=== PATIENT | female | born 2000 | race Caucasian/White ===

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

== ENCOUNTER → 2021-05-03 13:16 | Outpatient (CLI) | payer OTHER, MEDICAID, SELFPAY | PROVIDERS: Visit Provider Nurse Practitioner | DX: Z20.822 Contact with and (suspected) exposure to COVID-19 (principal) | CPT/HCPCS: C9803; U0003; U0005 ==

== ENCOUNTER 2022-02-27 09:39 | Emergency (ER) | payer MEDICAID, SELFPAY ==
[2022-02-27 11:06] VITALS: BP 149/92; PULSE 81; RESP 16; TEMP 37.1; O2SAT 99; BMI 35.9
--- NOTE | 2022-02-27 11:07 | EXP.UTC ---
Discharge Plan Disposition Patient Disposition: Home, Self-Care Condition: Good Prescriptions Prescriptions: New azithromycin [Zithromax] 250 mg tablet 250 mg PO UD DOSE PK Qty: 6 0RF Rx Instructions: Take two (2) tablets today, then one (1) tablet days #2 thru #5 [id number]-frqwkibia-[id number] [Bromfed DM] 2-30-10 mg/5 mL Syrup 5 ml PO Q6H PRN (Reason: Cough) Qty: 240 0RF No Action omeprazole 20 MG capsule,delayed release(DR/EC) 20 mg PO DAILY sertraline 50 MG tablet 50 mg PO DAILY phenazopyridine 200 MG tablet 200 pow PO TID Qty: 6 0RF sulfamethoxazole-trimethoprim 1 EACH tablet 1 each PO BID 7 Days Qty: 14 0RF Referrals Follow up/Referrals: Provider,Referral, MD [Primary Care Provider] - See instructions Activity Restrictions/Add. Instructions Additional Instructions/Restrictions: Drink plenty of fluids. Take tylenol or ibuprofen for pain or fever. Take the medications as directed. Follow up with your regular doctor. GO TO THE ER FOR ANY WORSENING SYMPTOMS Clinical Impressions Clinical Impression: Pharyngitis, Viral syndrome Stand Alone Forms Stand Alone Forms: Work/School Release Instructions Patient Instructions: DI for Pharyngitis/Tonsillopharyngitis -- Adult, DI for Viral Syndrome Discharge ED Provider: Gilberto Spencer [facility] General Stated complaint: congestion, no taste, body aches, cough Time Seen by Provider: 02/27/22 11:07 History of Present Illness Provider Complaint: She states that since yesterday she has had congestion, no taste, body aches, cough Related Data Home Medications Medication Instructions Recorded Confirmed omeprazole 20 mg capsule,delayed 20 mg PO DAILY GERD 11/06/19 11/06/19 release sertraline 50 mg tablet 50 mg PO DAILY DEPRESSION/ANXIETY 11/06/19 11/06/19 Previous Rx's Medication Instructions Recorded phenazopyridine 200 mg tablet 200 pow PO TID #6 tabs 11/06/19 sulfamethoxazole 800 1 each PO BID 7 days #14 tabs 11/06/19 mg-trimethoprim 160 mg tablet azithromycin 250 mg tablet 250 mg PO UD DOSE PK #6 tabs 02/27/22 (Zithromax) ucoacomxuqycbty-mkehumxhrbmpfdr-HK 5 ml PO Q6H PRN Cough #240 mL 02/27/22 2 mg-30 mg-10 mg/5 mL oral syrup (Bromfed DM) Allergies Allergy/AdvReac Type Severity Reaction Status Date / Time No Known Allergies Allergy Verified 02/27/22 11:10 [facility] Social History Smoking Status: Never smoker alcohol intake: never current occupational status: other Travel in the last 8 weeks: None ROS Obtained: Yes All systems reviewed & no additional complaints except as documented Constitutional Constitutional: Reports chills and Reports fever(s) Eyes Eyes: Denies eye discharge ENT Ears, Nose, Mouth, and Throat: Reports as per HPI Cardiovascular Cardiovascular: Denies chest pain Respiratory Respiratory: Denies chest congestion and Reports cough Gastrointestinal Gastrointestingal: Reports nausea; Denies abdominal pain, constipation, cramping, diarrhea or vomiting Musculoskeletal Musculoskeletal: Denies arthralgias Integumentary/Breasts Skin/Breast: Denies rash Neurologic Neurologic: Denies paresthesias Physical Exam General General appearance: alert and in no apparent distress Head Head exam: atraumatic, normocephalic and normal inspection Eye Eye exam: Present normal appearance, PERRL and EOMI ENT ENT exam: Present normal exam, normal oropharynx, mucous membranes moist, TM's normal bilaterally and normal external ear exam Neck Neck exam: Present normal inspection, full ROM and trachea midline; Absent meningismus or lymphadenopathy Chest Chest inspection: Present normal inspection and symmetric chest wall rise; Absent tenderness Respiratory Respiratory exam: Present normal lung sounds bilaterally; Absent respiratory distress Cardiovascular Cardiovascular exam: Present regular rate and normal rhythm; Ab
[2022-02-27 11:53] VITALS: BP 149/92; PULSE 81; RESP 16; TEMP 37.1
== END 2022-02-27 11:53 | disposition home or self-care (01) ==
PROVIDERS: Emergency Provider Nurse Practitioner Family
DX: J02.9 Acute pharyngitis, unspecified (principal); B34.9 Viral infection, unspecified
CPT/HCPCS: 99212; C9803; G0463; U0003; U0005

== ENCOUNTER 2023-10-09 15:38 | Emergency (ER) | payer MEDICAID, SELFPAY ==
[2023-10-09 16:05] VITALS: BP 135/82; PULSE 105; RESP 21; TEMP 37.2; O2SAT 97; BMI 38.5
--- NOTE | 2023-10-09 16:06 | EXP.UTC ---
Discharge Plan Disposition Patient Disposition: Home, Self-Care Condition: Good Prescriptions Prescriptions: New phenazopyridine [Pyridium] 200 mg tablet 200 mg PO Q8H 2 Days Qty: 6 0RF cephalexin 500 mg capsule 500 mg PO QID Qty: 40 0RF ueecejsrelofnmj-uuzuvxoqe-QE [Bromfed DM] 2-30-10 mg/5 mL Syrup 5 ml PO Q6H PRN (Reason: Cough) Qty: 240 0RF No Action omeprazole 40 mg capsule,delayed release(DR/EC) 40 mg PO DAILY Patient Comments: TAKE 1 CAPSULE BY MOUTH DAILY FOR 180 DAYS. sertraline 50 mg tablet 50 mg PO DAILY Patient Comments: TAKE 1 TABLET BY MOUTH EVERY DAY medroxyprogesterone 150 mg/mL suspension 150 mg IM ONCE Patient Comments: PLEASE SEE ATTACHED FOR DETAILED DIRECTIONS topiramate 50 mg tablet 50 mg PO BID Patient Comments: TAKE 1 TABLET BY MOUTH 2 TIMES DAILY FOR 180 DAYS. Referrals Follow up/Referrals: Provider,Referral, MD [Primary Care Provider] - See instructions Activity Restrictions/Add. Instructions Additional Instructions/Restrictions: Drink plenty of fluids. Take tylenol or ibuprofen for pain or fever. Take the medications as directed. Follow up with your regular doctor. GO TO THE ER FOR ANY WORSENING SYMPTOMS The pyridium will make your urine turn orange, this is an expected side effect. It will stain your clothes if it comes into contact with them. We will culture the urine. That will tell what bacteria is causing your infection and which antibiotics will treat it best. Sometimes the first antibiotic we prescribe turns out to not work against different bacteria. So, make sure you follow up within 3 days if you are not getting better. Clinical Impressions Clinical Impression: Strep throat UTI (urinary tract infection) Qualifiers: Urinary tract infection type: site unspecified Hematuria presence: with hematuria Qualified Code(s): N39.0 - Urinary tract infection, site not specified Stand Alone Forms Stand Alone Forms: Work/School Release Instructions Patient Instructions: Urine Culture, DI for Strep Throat, DI for Urinary Tract Infection (UTI), Phenazopyridine Discharge ED Provider: Gilberto Spencer [facility] [place] H[place] General Stated complaint: fever Time Seen by Provider: 10/09/23 16:06 History of Present Illness Provider Complaint: She states that she has had low back pain, dysuria, and urinary frequency for the past 1 week. She gets uti's occasionally and that is what she states her symptoms feel like. She has had sore throat, ear pain and sinus congestion for the past 3 days. She has been exposed to both strep throat and covid-19. Related Data Home Medications Medication Instructions Recorded Confirmed medroxyprogesterone 150 mg/mL 150 mg IM ONCE 10/09/23 10/09/23 intramuscular suspension omeprazole 40 mg capsule,delayed 40 mg PO DAILY 10/09/23 10/09/23 release sertraline 50 mg tablet 50 mg PO DAILY 10/09/23 10/09/23 topiramate 50 mg tablet 50 mg PO BID 10/09/23 10/09/23 Previous Rx's Medication Instructions Recorded xcklnhlxwxtzjye-phboevsyacxwlpt-CJ 5 ml PO Q6H PRN Cough #240 mL 10/09/23 2 mg-30 mg-10 mg/5 mL oral syrup (Bromfed DM) cephalexin 500 mg capsule 500 mg PO QID #40 caps 10/09/23 phenazopyridine 200 mg tablet 200 mg PO Q8H 2 days #6 tabs 10/09/23 (Pyridium) Allergies Allergy/AdvReac Type Severity Reaction Status Date / Time No Known Allergies Allergy Verified 02/27/22 11:10 [facility] Disclaimer: The information contained in this section may have been updated after the patient was seen, as this information can be updated by other users. Medical History (Updated 10/09/23 @ 16:19 by Gilberto Spencer APRN) Anemia UTI (urinary tract infection) GERD (gastroesophageal reflux disease) Depression Anxiety Migraine Asthma Hypertension Social History (Updated 02/27/22 @ 22:20 by Gilberto Spencer APRN) Smoking Status: Never smoker alcohol intake: never current occupational status: other Travel in the last 8 weeks: None ROS Obtained: Yes All systems reviewed & no additional complaints except as documented Constitutional Constitutional: Reports chills and Reports fever(s) Eyes Eyes: Denies eye discharge ENT Ears, Nose, Mouth, and Throat: Reports as per HPI Cardiovascular Cardiovascular: Denies chest pain Respiratory Respiratory: Denies chest congestion and Reports cough Gastrointestinal Gastrointestingal: Reports nausea; Denies abdominal pain, constipation, cramping, diarrhea or vomiting Genitourinary Female Genitourinary: Reports as per HPI, Reports dysuria, Reports urinary frequency, Reports urinary incontinence, Reports urinary hesitancy and Reports urinary urgency Musculoskeletal Musculoskeletal: Denies arthralgias Integumentary/Breasts Skin/Breast: Denies rash Neurologic Neurologic: Denies paresthesias Physical Exam General General appearance: alert and in no apparent distress Head Head exam: atraumatic, normocephalic and normal inspection Eye Eye exam: Present normal appearance, PERRL and EOMI ENT ENT exam: Present mucous membranes moist and normal external ear exam Expanded ENT Exam TM/Canal exam: Bilateral TM: erythema and bulging Nose exam: Absent sinus tenderness Mouth exam: Present normal external inspection; Absent drooling Teeth exam: Present normal inspection Throat exam: Present tonsillar erythema, tonsillomegaly and tonsillar exudate Neck Neck exam: Present normal inspection, full ROM and trachea midline; Absent tenderness, meningismus or lymphadenopathy Chest Chest inspection: Present normal inspection and symmetric chest wall rise; Absent tenderness Respiratory Respiratory exam: Present normal lung sounds bilaterally; Absent respiratory distress, wheezes, stridor or accessory muscle use Cardiovascular Cardiovascular exam: Present regular rate and normal rhythm; Absent systolic murmur or diastolic murmur Abdominal Exam Abdominal exam: Present soft and normal bowel sounds; Absent distention, tenderness, guarding, rebound or rigidity Extremities Exam Extremities exam: Present normal inspection and normal capillary refill; Absent calf tenderness Back Exam Back exam: Present normal inspection and full ROM; Absent tenderness, CVA tenderness (R) or CVA tenderness (L) Neurological Exam Neurological exam: Present alert, oriented X3 and CN II-XII intact Psychiatric Psychiatric exam: Present normal affect and normal mood Skin Skin exam: Present warm, dry, intact and normal color Medical Decision Making Medical Records Medical records reviewed: No I reviewed the patient's medical records. Johann Inquiry Pt receiving controlled substance: No Lab Data Lab results reviewed: Yes I reviewed the patient's lab results. Orders (Tests/Meds): ORDERS Category Date Time Status Urine Culture Stat Micro 10/09/23 16:06 Ordered
[2023-10-09 16:07] LABS: Apearance,Urine Cloudy (Clear); Bilirubin,Urine 1+ (Negative); Blood, Urine 3+ (Negative); Color,Urine Dark Yellow (Yellow); Glucose,Urine (UA) Negative (Negative); Ketones,Urine TRACE (Negative); PH,Urine 6.5 (5.0-8.5); Protein,Urine 3+ (Negative); UTC Leukocyte Esterase,Urine 1+ (Negative); Urobilinogen,Urine 2 EU/dl (0.2)
[2023-10-09 16:08] LABS: UTC Nitrate,Urine Negative (Negative); UTC Strep Screen (Rapid) Positive (Negative)
[2023-10-09 16:25] VITALS: BP 135/82; PULSE 105; RESP 21; TEMP 37.2; O2SAT 97
[2023-10-09 18:13] LABS: Coronavirus 19, PCR Not Detected (NotDetected); Influenza A, PCR Not Detected (NotDetected); Influenza B, PCR Not Detected (NotDetected)
== END 2023-10-09 16:27 | disposition home or self-care (01) ==
PROVIDERS: Emergency Provider Nurse Practitioner Family
DX: J02.0 Streptococcal pharyngitis (principal); R07.0 Pain in throat; H92.03 Otalgia, bilateral; R09.81 Nasal congestion; N39.0 Urinary tract infection, site not specified; R30.0 Dysuria; R35.0 Frequency of micturition; M54.59 Other low back pain
CPT/HCPCS: 81003; 87086; 87088; 87636; 87880; 99212; 99214; G0463

== ENCOUNTER 2023-12-08 14:34 | Outpatient (CLI) | payer MEDICAID, SELFPAY ==
--- NOTE | 2023-12-08 14:37 | XR_ITS ---
FINAL REPORT CLINICAL HISTORY: chest pain, SOBOE FINDINGS: 2 views of the chest were obtained . The heart is normal in size. The mediastinum is within normal limits. There are calcified granulomas in the right midlung. The lungs are otherwise clear. There is no pneumothorax. Osseous structures are unremarkable. IMPRESSION: No acute cardiopulmonary process. Reviewed, Interpreted and Dictated by David Carpenter MD Transcribed by Tasha Hernández Authenticated and [facility]
--- NOTE | 2023-12-08 15:06 | ECG_ITS ---
APPROVED REPORT Exam: Resting ECG HR:88 bpm ECG Measurements Heart Rate 88 AXES DE 145 P 47 QRSd 69 QRS 38 QT 318 T 30 QTc 363 Conclusion SINUS RHYTHM NORMAL ECG UNCONFIRMED REPORT Electronically signed by : Jerome Meraz MD 12/09/2023 08:44:11
[2023-12-08 15:22] LABS: Basophils % 0.5 % (0.1-2.0); Eosinophils # 0.1 K/mm3 (0.0-0.4); Hematocrit 41.6 % (37.0-47.0); Hemoglobin 13.5 g/dL (12.2-16.2); Lymphocytes # 2.1 K/mm3 (0.7-4.5); Lymphocytes % 28.3 % (10-50); Mean Corpuscular HGB Conc 32.4 g/dL (31.8-35.4); Mean Corpuscular Hemoglobin 28.2 pg (27.0-31.2); Mean Corpuscular Volume 86.9 fl (81-99); Mean Platelet Volume 8.1 fl (7.4-10.4); Monocytes # 0.6 K/mm3 (0.1-1.0); Monocytes % 7.8 % (1.7-9.3); Neutrophils # 4.7 K/mm3 (1.8-7.8); Neutrophils % 62.4 % (37.0-80.0); Platelet Count 344 K/mm3 (142-424); Red Blood Count 4.78 M/mm3 (4.20-5.40); Red Cell Distribution Width 14.1 % (11.5-17.5); White Blood Count 7.5 K/mm3 (4.8-10.8)
[2023-12-08 15:55] LABS: Alanine Aminotransferase 21 U/L (12-78); Albumin Level 4.2 g/dl (3.5-5.0); Albumin/Globulin Ratio 1.2 (1.1-1.8); Alkaline Phosphatase 69 U/L (38-126); Anion Gap 13.2 mEq/L (5-15); Aspartate Amino Transferase 26 U/L (14-36); Bilirubin,Total 0.4 mg/dl (0.2-1.3); Blood Urea Nitrogen 11 mg/dl (7-17); Calcium 9.9 mg/dl (8.4-10.2); Carbon Dioxide 20 mmol/L (22.0-30.0); Chloride 111 mmol/L (98-107); Estimated Glomerular Filt Rate 89 ml/min (>60); GFR (African American) 108 ML/MIN (>60); Globulin 3.5 g/dL (1.3-3.2); Glucose 102 mg/dl (74-100); Potassium 4.2 mmoL/L (3.5-5.1); Sodium 140 mmol/L (136-145); Total Protein,Serum 7.7 g/dl (6.3-8.2)
[2023-12-08 16:03] LABS: Erythrocyte Sedimentation Rate 21 mm/hr (0-20)
[2023-12-08 16:26] LABS: Thyroid Stimulating Hormone 0.67 uIU/mL (0.465-4.68)
[2023-12-08 16:45] LABS: Vitamin B12 495 pg/mL (239-931)
[2023-12-08 18:05] LABS: Hemoglobin A1C 5.5 % (4.0-6.0)
[2023-12-11 15:14] LABS: Anti-Centromere B Antibodies <0.2 AI (0.0-0.9); Anti-DNA (DS) Ab Qn 1 IU/mL (0-9); Anti-Jo-1 <0.2 AI (0.0-0.9); Anti-Smith Antibody <0.2 AI (0.0-0.9); Antichromatin Antibodies 0.2 AI (0.0-0.9); Antiscleroderma-70 Antibodies <0.2 AI (0.0-0.9); RNP Antibodies 0.2 AI (0.0-0.9); Sjogren's Anti-SS-A <0.2 AI (0.0-0.9); Sjogren's Anti-SS-B <0.2 AI (0.0-0.9)
== END 2023-12-08 23:59 | disposition home or self-care (01) ==
LOC: RAD 14:34
PROVIDERS: PCP Pediatrics; Visit Provider Nurse Practitioner
DX: R06.02 Shortness of breath (principal); R07.9 Chest pain, unspecified; G44.52 New daily persistent headache (NDPH); D64.9 Anemia, unspecified; I10 Essential (primary) hypertension; K21.9 Gastro-esophageal reflux disease without esophagitis
CPT/HCPCS: 36415; 71046; 80050; 80053; 82607; 83036; 84443; 85025; 85651; 86140; 86225; 86235; 93005

== ENCOUNTER 2023-12-23 14:39 | Outpatient (CLI) | payer MEDICAID, SELFPAY ==
[2023-12-23 19:26] LABS: Uric Acid 5.4 mg/dl (2.5-6.2)
[2023-12-23 19:31] LABS: C-Reactive Protein 6.6 mg/L (0-4)
[2023-12-23 19:42] LABS: Erythrocyte Sedimentation Rate 21 mm/hr (0-20)
[2023-12-25 13:11] LABS: RA Latex Turbid. <10.0 IU/mL (<14.0)
[2023-12-28 06:59] LABS: Antinuclear Antibodies, IFA POSITIVE
== END 2023-12-23 23:59 | disposition home or self-care (01) ==
LOC: LAB.DROPOF 12-24 14:39
PROVIDERS: PCP Nurse Practitioner; Visit Provider Nurse Practitioner
DX: R70.0 Elevated erythrocyte sedimentation rate (principal); R79.82 Elevated C-reactive protein (CRP)
CPT/HCPCS: 84550; 85651; 86038; 86140; 86431

== ENCOUNTER 2023-12-24 08:21 | Outpatient (CLI) | payer MEDICAID, SELFPAY ==
--- NOTE | 2023-12-24 | CA_ITS ---
APPROVED REPORT Exam: Exercise Treadmill Technologist: Shannan Dyer, Ht: 5 ft 1 in Wt: 196 lbs BSA: 1.87 m2 HR: 74 bpm BP: 135/90 mmHg Rhythm: Nsr, rightward axis Medical History Medical History: HTN Medications: Omeprazole,,,,, Sertraline,,,,, ValACYCLOVIR,,,,, MeDroxyprogesterone,,,,, TopIRAMTE,,,,, Allergies: No known drug allergies Cardiac Risk Factors: HTN Stress Test Details Test: Curry HR Resting HR: 80 bpm Max Heart Rate (APMHR): 197 bpm Max HR Achieved: 179 bpm Target HR (85% APMHR): 167 bpm % of APMHR: 91 Recovery HR: 99 bpm HR response to stress: Normal HR response to stress BP Resting BP: 135.0/90 mmHg Max BP: 188/78 mmHg Recovery BP: 139.0/78.0 mmHg BP response to stress: Normal blood pressure response to stress. ECG Resting ECG: Normal sinus rhythm, right axis deviation Stress EC.[address] depression Arrhythmia: None Recovery ECG: Return to baseline within 3 minutes of recovery Recovery Arrhythmia: None Clinical Exercise duration: 06:18 min Highest Stage Achieved: Exercise capacity: 7.0 METs Overall Exercise Capacity for Age: Fair Stress ECG Conclusion Max HR: 179 % of PM: 91% Max BP: 188/78 Mets: 7.0 Test stopped due to: Dyspnea, fatigue Pt exercised 6:18 on Curry protocol. No chest pain. Normal ST response to exercise Normal GXT Conclusion: Fair exercise tolerance compared to age and sex matched peers. No evidence of ischemic ECG changes at peak stress. GXT only (no imaging) Test Summary REST . . . . . . . Standing REST . . . . . . . Sitting REST 03:02 0.0 0.0 80 . 135/ 90 . . Stage 1 01:00 10.0 1.7 122 . . . . Stage 1 02:00 10.0 1.7 140 . . . . Stage 1 03:00 10.0 1.7 136 . 162/ 80 . . Stage 2 01:00 12.0 2.5 162 . . . . Stage 2 02:00 12.0 2.5 171 . . . . Stage 2 03:00 12.0 2.5 169 . 188/ 78 . . Stage 3 00:18 14.0 3.4 176 . . . Stop exercise at 06:18 RECOVERY 01:00 0.0 0.0 147 . . . . RECOVERY 02:00 0.0 0.0 118 . 175/ 90 . . RECOVERY 03:00 0.0 0.0 111 . 166/ 85 . . RECOVERY 04:00 0.0 0.0 103 . 166/ 85 . . RECOVERY 05:00 0.0 0.0 102 . 139/ 78 . . RECOVERY 05:18 0.0 0.0 97 . 139/ 78 . . Electronically signed by : Monique Spear MD 01/06/2024 14:03:10
--- NOTE | 2023-12-24 08:25 | CA_ITS ---
APPROVED REPORT EXAM: Comprehensive 2D, Doppler, and color-flow Echocardiogram Shoe Reconditioner: NOE Mcknight, RVS Ht: 5 ft 1 in Wt: 198lbs BSA: 1.88 BP: 128/82 mmHg Indications: CP, Dyspnea, Palpitations 2D Dimensions Left Atrium 3.11 cm LA Volume 45.30 mL LA Volume Index 23.50 mL/m2 (M/F) 16-34 M-Mode Dimensions RVDd 2.72 cm (0.9-2.6) LA Diam 3.63 cm (1.9-4.0) LVDd 4.14 cm (3.5-5.7) LVDs 2.83 cm (3.5-5.7) IVSd 0.77 cm (0.6-1.1) PWd 0.74 cm (0.6-1.1) EF (Teich) 60.10% EPSs 0.30 cm FS 31.60% EDV (Teich) 75.90 mL TAPSE 2.17 (<1.7) ESV (Teich) 30.30 mL LV Diastology E Decel Time 200 (160-240 msec) E/A Ratio 1.83 MED A' 10.90 cm/s LAT A' 9.40 cm/s Aortic Valve MAX Index 1.16 cm2/m2 AoV Peak Alf. 146.0 (50-130 cm/s) AO Peak GR. 8.50 mmHg AO Mean GR. 4.30 (<5 mmHg) AO VTI 28.5 (18-25 cm) MAX (VTI) 2.23 (2.5-4.5 cm2) Mitral Valve MV A Velocity 46.0 (40-130 cm/s) E/A Ratio 1.83 Pulmonary Valve PV Peak Velocity 113.0 (50-150 cm/s) Left Ventricle The left ventricle is normal size. The left ventricular systolic function is normal. The left ventricular ejection fraction is within the normal range. There is normal left ventricular wall thickness. There is normal LV segmental wall motion. The left ventricular diastolic function is normal. LVEF is 60%. Right Ventricle The right ventricle is normal size. The right ventricular systolic function is normal. Atria The left atrium size is normal. The right atrium size is normal. There is no Doppler evidence of interatrial shunt. Aortic Valve The aortic valve opens well. There is no aortic valvular stenosis. No aortic regurgitation is present. Mitral Valve The mitral valve is normal in structure. No evidence of mitral valve stenosis. There is no mitral valve regurgitation noted. Tricuspid Valve The tricuspid valve leaflets are thin and pliable. Trace tricuspid regurgitation. There is insufficient TR jet to estimate RVSP. Pulmonic Valve The pulmonary valve is normal in structure. Trace pulmonic regurgitation. Great Vessels The aortic root is normal in size. The ascending aorta is normal in size. IVC is normal in size and collapses >50% with inspiration. Pericardium There is no pericardial effusion. Other Information Study Quality: Adequate Conclusion Normal biventricular systolic function. No significant valvular stenosis or regurgitation. Electronically signed by : Monique Spear MD 12/29/2023 11:44:46
== END 2023-12-24 23:59 | disposition home or self-care (01) ==
LOC: RT 08:22
PROVIDERS: PCP Pediatrics; Visit Provider Nurse Practitioner
DX: R00.2 Palpitations (principal); R07.9 Chest pain, unspecified; R06.02 Shortness of breath
CPT/HCPCS: 93017; 93018; 93225; 93227; 93306

== ENCOUNTER 2023-12-30 14:26 | Emergency (ER) | payer MEDICAID, SELFPAY ==
[2023-12-30 14:47] VITALS: BP 127/79; PULSE 80; RESP 20; TEMP 36.8; O2SAT 100; BMI 36.2
--- NOTE | 2023-12-30 15:01 | EXP.UTC ---
Discharge Plan Disposition Patient Disposition: Home, Self-Care Condition: Good Prescriptions Prescriptions: New benzonatate 100 mg capsule 100 mg PO TID PRN (Reason: cough) Qty: 30 0RF fluticasone propionate [Flonase Allergy Relief] 50 mcg/actuation spray,suspension 1 - 2 spray intranasal DAILY Qty: 16 0RF Rx Instructions: administer into each nostril daily No Action valacyclovir 500 mg tablet 1,000 mg PO ONCE PRN (Reason: herpes) Patient Comments: TAKE 2 TABLETS BY MOUTH EVERY 24 HOURS FOR 5 DAYS. omeprazole 40 mg capsule,delayed release(DR/EC) 40 mg PO DAILY Patient Comments: TAKE 1 CAPSULE BY MOUTH DAILY FOR 180 DAYS. sertraline 50 mg tablet 50 mg PO DAILY Patient Comments: TAKE 1 TABLET BY MOUTH EVERY DAY medroxyprogesterone 150 mg/mL suspension 150 mg IM ONCE Patient Comments: PLEASE SEE ATTACHED FOR DETAILED DIRECTIONS topiramate 50 mg tablet 50 mg PO BID Patient Comments: TAKE 1 TABLET BY MOUTH 2 TIMES DAILY FOR 180 DAYS. Referrals Follow up/Referrals: Sukumar Garcia [Primary Care Provider] - See instructions Activity Restrictions/Add. Instructions Additional Instructions/Restrictions: *Monitor Temp, Over the counter Motrin or Tylenol as directed/as needed Tylenol every 4 hours and Motrin every 6 hours (as long as your family doctor has told you that you can take it) for fever or pain. and straight to ER if unable to lower temp less than 101.0 after medication given *Warm salt water gargles may help to soothe the throat *Throat Lozenges? *Warm fluids like tea with honey may help to soothe the throat? *Sleep elevated *Humidifier/Vaporizer *Tessalon Perles will not cause drowsiness but use at bedtime to help stop cough so that you may get some rest. Your throat swab was sent for culture. Those results are typically sent to your primary care. Be sure to follow up in 2-3 days with your family doctor/primary care physician if no improvement so they can review those result and treat if necessary. If you don?t have a primary care doctor, I recommend you get one but in the mean time, you will have to return to a walk in clinic Follow up IMMEDIATELY for new or worsening symptoms or no Noticeable improvement over the next 48-72 hours. 911 for difficulty breathing or swallowing Clinical Impressions Clinical Impression: Cough Instructions Patient Instructions: Cough Print Language Print Language: Haitian Discharge ED Provider: Cecy Ramirez [facility] [place] HPI General Stated complaint: cough Mode of Arrival: Ambulatory Source of Information: Patient Time Seen by Provider: 12/30/23 15:01 Description of Symptoms (Recalled from Triage Doc. by RN): excessive dry cough, itchy throat at home covid test + a few weeks ago HEENT Symptoms (Recalled from RN notes): No Resp Symptoms (Recalled from RN notes): Yes Skin Symptoms (Recalled from RN notes): No MS Symptoms (Recalled from RN notes): No Functional Status (Recalled from RN notes): wdl History of Present Illness Provider Complaint: Patient states that she had COVID a few weeks ago per home test and she has had a dry cough ever since States today she has been having itchy scratchy throat and worried she may have strep or something Related Data Home Medications ?Medication ?Instructions ?Recorded ?Confirmed medroxyprogesterone 150 mg/mL 150 mg IM ONCE 10/09/23 12/30/23 intramuscular suspension omeprazole 40 mg capsule,delayed 40 mg PO DAILY 10/09/23 12/30/23 release sertraline 50 mg tablet 50 mg PO DAILY 10/09/23 12/30/23 topiramate 50 mg tablet 50 mg PO BID 10/09/23 12/30/23 valacyclovir 500 mg tablet 1,000 mg PO ONCE PRN herpes 12/11/23 12/30/23 Previous Rx's ?Medication ?Instructions ?Recorded benzonatate 100 mg capsule 100 mg PO TID PRN cough #30 caps 12/30/23 fluticasone propionate 50 1 - 2 spray intranasal DAILY #16 12/30/23 mcg/actuation nasal grams spray,suspension (Flonase Allergy Relief) Allergies Allergy/AdvReac Type Severity Reaction Status Date / Time No Known Allergies Allergy Verified 12/23/23 09:33 Worker's Comp Is this a Worker's Comp case?: No [facility] Disclaimer: The information contained in this section may have been updated after the patient was seen, as this information can be updated by other users. Medical History (Updated 12/30/23 @ 15:22 by Cecy Ramirez APRN) Elevated C-reactive protein (CRP) Elevated sed rate Palpitations SOBOE (shortness of breath on exertion) Chest pain New daily persistent headache Anemia UTI (urinary tract infection) GERD (gastroesophageal reflux disease) Depression Anxiety Migraine Asthma Hypertension Social History Smoking Status: Never smoker alcohol intake: never current occupational status: other Travel in the last 8 weeks: None ROS Obtained: Yes All systems reviewed & no additional complaints except as documented and Yes Systems reviewed as appropriate & no additional complaints except as documented Constitutional Constitutional: Reports system reviewed and no additional complaints, except as documented, Reports as per HPI, Denies body ache, Denies chills, Denies fever(s) and Denies headache(s) ENT Ears, Nose, Mouth, and Throat: Reports system reviewed and no additional complaints, except as documented, Reports as per HPI, Denies headache(s) and Reports sore throat Cardiovascular Cardiovascular: Reports system reviewed and no additional complaints, except as documented and Reports as per HPI Respiratory Respiratory: Reports system reviewed and no additional complaints, except as documented, Reports as per HPI and Reports cough Gastrointestinal Gastrointestingal: Reports system reviewed and no additional complaints, except as documented and as per HPI Neurologic Neurologic: Denies headache(s) Physical Exam General General appearance: alert and in no apparent distress ENT ENT exam: Present mucous membranes moist Expanded ENT Exam Throat exam: Present tonsillar erythema; Absent tonsillomegaly or tonsillar exudate Chest Chest inspection: Present normal inspection; Absent symmetric chest wall rise or tenderness Respiratory Respiratory exam: Present normal lung sounds bilaterally; Absent respiratory distress or wheezes Cardiovascular Cardiovascular exam: Present regular rate, normal rhythm and normal heart sounds Abdominal Exam Abdominal exam: Present soft and normal bowel sounds; Absent distention or tenderness Neurological Exam Neurological exam: Present alert, oriented X3 and normal gait Medical Decision Making Johann Inquiry Pt receiving controlled substance: No Johann was queried for this patient: No Vital Signs: 12/30/23 14:47 Temperature 98.2 F Temperature Source Oral Pulse Rate [Left Brachial] 80 Respiratory Rate 20 Blood Pressure [Left Arm] 127/79 Blood Pressure Mean [Left Arm] 95 02 Sat by Pulse Oximetry 100
[2023-12-30 15:35] VITALS: BP 127/79; PULSE 80; RESP 20; TEMP 36.8; O2SAT 100
[2023-12-31 09:13] LABS: UTC Strep Screen (Rapid) Negative (Negative)
== END 2023-12-30 15:38 | disposition home or self-care (01) ==
PROVIDERS: Emergency Provider Nurse Practitioner; PCP Pediatrics
DX: R05.9 Cough, unspecified (principal); R07.0 Pain in throat; Z86.16 Personal history of COVID-19
CPT/HCPCS: 87880; 99212; 99214; G0463

== ENCOUNTER 2024-01-28 18:00 | Emergency (ER) | payer MEDICAID, SELFPAY ==
--- NOTE | 2024-01-28 18:03 | EXP.UTC ---
Discharge Plan Disposition Patient Disposition: Home, Self-Care Condition: Good Prescriptions Prescriptions: New phenazopyridine [Pyridium] 200 mg tablet 200 mg PO Q8H 2 Days Qty: 6 0RF ondansetron 4 mg Tablet,Disintegrating 4 mg PO Q8H PRN (Reason: Nausea) Qty: 12 0RF nitrofurantoin monohyd/m-cryst [Macrobid] 100 mg Capsule 100 mg PO BID Qty: 10 0RF Rx Instructions: must administer with a meal/food No Action valacyclovir 500 mg tablet 1,000 mg PO ONCE PRN (Reason: herpes) Patient Comments: TAKE 2 TABLETS BY MOUTH EVERY 24 HOURS FOR 5 DAYS. omeprazole 40 mg capsule,delayed release(DR/EC) 40 mg PO DAILY Patient Comments: TAKE 1 CAPSULE BY MOUTH DAILY FOR 180 DAYS. sertraline 50 mg tablet 50 mg PO DAILY Patient Comments: TAKE 1 TABLET BY MOUTH EVERY DAY medroxyprogesterone 150 mg/mL suspension 150 mg IM ONCE Patient Comments: PLEASE SEE ATTACHED FOR DETAILED DIRECTIONS topiramate 50 mg tablet 50 mg PO BID Patient Comments: TAKE 1 TABLET BY MOUTH 2 TIMES DAILY FOR 180 DAYS. Referrals Follow up/Referrals: Provider,Referral, MD [Primary Care Provider] - See instructions Activity Restrictions/Add. Instructions Additional Instructions/Restrictions: Drink plenty of fluids. Take tylenol or ibuprofen for pain or fever. Take the medications as directed. Follow up with your regular doctor. GO TO THE ER FOR ANY WORSENING SYMPTOMS The pyridium will make your urine turn orange, this is an expected side effect. It will stain your clothes if it comes into contact with them. We will culture the urine. That will tell what bacteria is causing your infection and which antibiotics will treat it best.This test takes 3 days to complete. Clinical Impressions Clinical Impression: UTI (urinary tract infection) Qualifiers: Urinary tract infection type: site unspecified Hematuria presence: with hematuria Qualified Code(s): N39.0 - Urinary tract infection, site not specified Stand Alone Forms Stand Alone Forms: Work/School Release Instructions Patient Instructions: Urinary Tract Infection, Urine Culture, DI for Urinary Tract Infection (UTI), Phenazopyridine Print Language Print Language: Telugu Discharge ED Provider: Gilberto Spencer [facility] [place] General Stated complaint: poss UtI discomfort , pain Time Seen by Provider: 01/28/24 18:02 Related Data Home Medications ?Medication ?Instructions ?Recorded ?Confirmed medroxyprogesterone 150 mg/mL 150 mg IM ONCE 10/09/23 01/28/24 intramuscular suspension omeprazole 40 mg capsule,delayed 40 mg PO DAILY 10/09/23 01/28/24 release sertraline 50 mg tablet 50 mg PO DAILY 10/09/23 01/28/24 topiramate 50 mg tablet 50 mg PO BID 10/09/23 01/28/24 valacyclovir 500 mg tablet 1,000 mg PO ONCE PRN herpes 12/11/23 01/06/24 Previous Rx's ?Medication ?Instructions ?Recorded nitrofurantoin 100 mg PO BID #10 caps 01/28/24 monohydrate/macrocrystals 100 mg capsule (Macrobid) ondansetron 4 mg disintegrating 4 mg PO Q8H PRN Nausea #12 tabs 01/28/24 tablet phenazopyridine 200 mg tablet 200 mg PO Q8H 2 days #6 tabs 01/28/24 (Pyridium) Allergies Allergy/AdvReac Type Severity Reaction Status Date / Time No Known Allergies Allergy Verified 01/06/24 14:08 [facility] Disclaimer: The information contained in this section may have been updated after the patient was seen, as this information can be updated by other users. Medical History Elevated C-reactive protein (CRP) Elevated sed rate Palpitations SOBOE (shortness of breath on exertion) Chest pain New daily persistent headache Anemia UTI (urinary tract infection) GERD (gastroesophageal reflux disease) Depression Anxiety Migraine Asthma Hypertension Social History Smoking Status: Never smoker alcohol intake: never current occupational status: other Travel in the last 8 weeks: None ROS Obtained: Yes All systems reviewed & no additional complaints except as documented Constitutional Constitutional: Reports system reviewed and no additional complaints, except as documented, Denies chills and Denies fever(s) Eyes Eyes: Denies eye discharge ENT Ears, Nose, Mouth, and Throat: Denies dysphagia, Denies sore throat and Denies throat swelling Cardiovascular Cardiovascular: Denies chest pain and Denies dyspnea Respiratory Respiratory: Denies chest congestion, Denies cough and Denies dyspnea Gastrointestinal Gastrointestingal: Denies abdominal pain, constipation, diarrhea, dysphagia, nausea or vomiting Genitourinary Female Genitourinary: Reports as per HPI, Reports dysuria, Reports urinary frequency, Denies urinary incontinence, Reports urinary hesitancy and Reports urinary urgency Musculoskeletal Musculoskeletal: Denies arthralgias and Reports back pain Integumentary/Breasts Skin/Breast: Denies rash Neurologic Neurologic: Denies paresthesias Allergic/Immunologic Allergic/Immunologic: Denies throat swelling Physical Exam General General appearance: alert and in no apparent distress Head Head exam: atraumatic and normocephalic Eye Eye exam: Present normal appearance, PERRL and EOMI ENT ENT exam: Present normal exam, mucous membranes moist, TM's normal bilaterally and normal external ear exam Neck Neck exam: Present normal inspection, full ROM and trachea midline; Absent tenderness, meningismus or lymphadenopathy Chest Chest inspection: Present normal inspection and symmetric chest wall rise; Absent tenderness Respiratory Respiratory exam: Present normal lung sounds bilaterally; Absent respiratory distress, wheezes or stridor Cardiovascular Cardiovascular exam: Present regular rate, normal rhythm and normal heart sounds Abdominal Exam Abdominal exam: Present soft and normal bowel sounds; Absent distention, tenderness, guarding, rebound, rigidity, incision, psoas sign, obturator sign, heel tap sign, Escobedo's sign, Rovsing's sign or tenderness at McBurney's Point Extremities Exam Extremities exam: Present normal inspection, full ROM and normal capillary refill; Absent tenderness, edema, joint swelling, calf tenderness or cyanosis Back Exam Back exam: Present normal inspection and full ROM; Absent tenderness, CVA tenderness (R) or CVA tenderness (L) Neurological Exam Neurological exam: Present alert, oriented X3 and normal gait Psychiatric Psychiatric exam: Present normal affect and normal mood Skin Skin exam: Present warm, dry, intact and normal color Lymphatic Lymphatic Findings: no adenopathy Medical Decision Making Medical Records Medical records reviewed: No I reviewed the patient's medical records. Screening: Per USPSTF and CDC recommendations, given the prevalence of disease in our region, it is our hospital?s policy to screen for HIV and viral Hepatitis for all patients aged 18 and over and those with ongoing risk factors. Johann Inquiry Pt receiving controlled substance: No Lab Data Lab results reviewed: Yes I reviewed the patient's lab results.
[2024-01-28 18:19] VITALS: BP 133/83; PULSE 67; RESP 18; TEMP 36.8; O2SAT 100; BMI 36.8
[2024-01-28 18:28] LABS: Microscopic, Urine URINE MICROSCOPIC (MICROSCOPIC)
[2024-01-28 18:33] LABS: Appearance,Urine CLEAR (Clear); Bilirubin,Urine Negative (Negative); Blood, Urine 3+ (Negative); Color,Urine YELLOW (Yellow); Glucose,Urine (UA) Negative (Negative); Ketones,Urine Negative (Negative); Leukocyte Esterase,Urine 1+ (Negative); Nitrate,Urine Negative (Negative); Protein,Urine Negative (Negative); Urobilinogen,Urine 0.2 EU/dl (0.2)
[2024-01-28 18:39] VITALS: BP 133/83; PULSE 67; RESP 18; TEMP 36.8
[2024-01-28 18:47] LABS: RBC,Urine 50-100 #/hpf (0-3); Squamous Epithelial Cell,Urine 20-50 #/hpf (0-5); WBC,Urine TNTC #/hpf (0-3)
[2024-01-28 18:48] LABS: Bacteria,Urine 4+ /lpf
--- NOTE | 2024-01-30 17:54 | PC.NURSE ---
URINE CULTURE RESULTS REVIEWED BY Pavan PACHECO APRN. NO CHANGES NEEDED AT THIS TIME
== END 2024-01-28 18:41 | disposition home or self-care (01) ==
PROVIDERS: Emergency Provider Nurse Practitioner Family
DX: N39.0 Urinary tract infection, site not specified (principal)
CPT/HCPCS: 81001; 87086; 87088; 87186; 99213; G0381

== ENCOUNTER 2024-04-06 10:27 | Outpatient (CLI) | payer MEDICAID, SELFPAY | END 2024-04-06 23:59 | disposition home or self-care (01) | LOC: RT 10:28 | PROVIDERS: PCP Pediatrics; Visit Provider Specialist | DX: R00.0 Tachycardia, unspecified (principal); I49.9 Cardiac arrhythmia, unspecified; R07.89 Other chest pain | CPT/HCPCS: 93270; 93272 ==

== ENCOUNTER 2024-04-15 17:13 | Outpatient (CLI) | payer MEDICAID, SELFPAY ==
--- NOTE | 2024-04-15 17:14 | MR_ITS ---
PROCEDURE INFORMATION: Exam: MR Head Without Contrast Exam date and time: 04/15/2024 5:14 PM Age: 23 years old Clinical indication: Pain; Headache; Additional info: Changing pattern of daily headaches TECHNIQUE: Imaging protocol: Magnetic resonance imaging of the head without contrast. COMPARISON: No relevant prior studies available. FINDINGS: Brain: Multiple bilateral periventricular nonspecific white matter foci ranging in size from 1 mm up to the largest measuring 5 mm. No evidence for involvement of the callosum. Cerebral ventricles: Normal. No ventriculomegaly. Bones: Unremarkable. Paranasal sinuses: Normal as visualized. No acute sinusitis. Mastoid air cells: Normal as visualized. No mastoid effusion. Orbital cavities: Unremarkable. Soft tissues: Unremarkable. IMPRESSION: 1. Multiple bilateral periventricular nonspecific white matter foci ranging in size from 1 mm up to the largest measuring 5 mm. No evidence for involvement of the callosum. 2. In a patient of this age with history of headaches, consider migraine which can produce this pattern and distribution. Vasculitis is also within the differential. Small-vessel disease possible if history of longstanding diabetes. While demyelination is within the differential such as multiple sclerosis, the pattern is not typical for that diagnosis and therefore felt less likely. Recommend neurology consultation for full workup
== END 2024-04-15 23:59 | disposition home or self-care (01) ==
LOC: RAD 17:14
PROVIDERS: PCP Pediatrics; Visit Provider Specialist
DX: G44.52 New daily persistent headache (NDPH) (principal)
CPT/HCPCS: 70551

== ENCOUNTER 2024-05-12 10:11 | Outpatient (CLI) | payer MEDICAID, SELFPAY ==
[2024-05-12 10:35] LABS: Basophils # 0.1 K/mm3 (0-0.2); Basophils % 0.6 % (0.1-2.0); Eosinophils # 0.2 K/mm3 (0.0-0.4); Eosinophils % 2.3 % (0.1-12.0); Hematocrit 36.2 % (37.0-47.0); Hemoglobin 11.6 g/dL (12.2-16.2); Lymphocytes % 35.2 % (10-50); Mean Corpuscular Volume 84.2 fl (81-99); Mean Platelet Volume 9.6 fl (7.4-10.4); Monocytes # 0.7 K/mm3 (0.1-1.0); Monocytes % 7.8 % (1.7-9.3); Neutrophils # 4.6 K/mm3 (1.8-7.8); Neutrophils % 53.9 % (37.0-80.0); Platelet Count 289 K/mm3 (142-424); Red Cell Distribution Width 13.4 % (11.5-17.5); White Blood Count 8.6 K/mm3 (4.8-10.8)
[2024-05-12 11:18] LABS: Alanine Aminotransferase 24 U/L (12-78); Alkaline Phosphatase 64 U/L (38-126); Anion Gap 12.1 mEq/L (5-15); Aspartate Amino Transferase 24 U/L (14-36); Blood Urea Nitrogen 12 mg/dl (7-17); Calcium 9.8 mg/dl (8.4-10.2); Carbon Dioxide 25 mmol/L (22.0-30.0); Chloride 109 mmol/L (98-107); Chol/HDL Ratio 3.5 (1-3.5); Cholesterol 126 mg/dl (140-200); Estimated Glomerular Filt Rate 78 ml/min (>60); GFR (African American) 94 ML/MIN (>60); Glucose 75 mg/dl (74-100); HDL Cholesterol 36 mg/dl (40-60); Potassium 4.1 mmoL/L (3.5-5.1); Sodium 142 mmol/L (136-145); Total Protein,Serum 6.7 g/dl (6.3-8.2); Triglycerides 92 mg/dl (30-150); VLDL Cholesterol 18 mg/dL (0-40)
[2024-05-12 11:25] LABS: Bilirubin,Total < 0.1 mg/dl (0.2-1.3)
[2024-05-12 11:28] LABS: Direct LDL Cholesterol 74.15 mg/dL (100-129)
[2024-05-12 11:34] LABS: Free T4 (Free Thyroxine) 1.27 ng/dl (0.78-2.19)
[2024-05-12 11:49] LABS: Thyroid Stimulating Hormone 0.94 uIU/mL (0.465-4.68)
[2024-05-12 12:42] LABS: Bilirubin,Direct 0.1 mg/dl (0.0-0.4); Bilirubin,Indirect 0.1 mg/dL (0.0-0.9)
== END 2024-05-12 23:59 | disposition home or self-care (01) ==
LOC: LAB 10:12
PROVIDERS: PCP Pediatrics; Visit Provider Nurse Practitioner
DX: F41.9 Anxiety disorder, unspecified (principal); R06.09 Other forms of dyspnea; I20.9 Angina pectoris, unspecified; R07.89 Other chest pain; F32.A Depression, unspecified; I47.29 Other ventricular tachycardia
CPT/HCPCS: 36415; 80048; 80061; 80076; 84439; 84443; 85025

== ENCOUNTER → 2024-05-24 07:18 | Outpatient (CLI) | payer MEDICAID, SELFPAY | LOC: SL 05-26 07:19 | PROVIDERS: PCP Specialist; Visit Provider Specialist | DX: R06.83 Snoring (principal); G47.30 Sleep apnea, unspecified | CPT/HCPCS: G0399 ==

== ENCOUNTER 2024-06-23 08:02 | Outpatient (CLI) | payer MEDICAID, SELFPAY ==
--- NOTE | 2024-06-23 | CA_ITS ---
APPROVED REPORT Exam: Exercise Treadmill Technologist: Florence Lau Ht: 5 ft 1 in Wt: 215 lbs BSA: 1.95 m2 HR: 78 bpm BP: 150/89 mmHg Stress Test Details Test: Exercise stress testing was performed using a Curry protocol. HR Resting HR: 78 bpm Max Heart Rate (APMHR): 197 bpm Max HR Achieved: 172 bpm Target HR (85% APMHR): 167 bpm % of APMHR: 87 Recovery HR: 106 bpm HR response to stress: Normal HR response to stress BP Resting BP: 150.0/89.0 mmHg Max BP: 150.0/72.0 mmHg Recovery BP: 142.0/75.0 mmHg BP response to stress: Normal blood pressure response to stress. ECG Clinical Exercise duration: 5:10 min Exercise capacity: 7.6 METs Overall Exercise Capacity for Age: Poor Stress ECG Conclusion Symptoms: Chest pressure when she first started walking, then resolved. Test stopped due to shortness of breath. Arrhythmias/Ectopy: None ST-T Changes: 0.[address] depression CONCLUSION Poor exercise capacity compared to age and sex matched peers. No evidence of ischemia on ECG at peak stress. Echo stress results are reported separately. Electronically signed by : Monique Spear MD 06/28/2024 23:23:49
--- NOTE | 2024-06-23 08:05 | CA_ITS ---
APPROVED REPORT EXAM: Comprehensive 2D, Doppler, and color-flow Echocardiogram Seam Steamer: Raeann Rebolledo RVT Ht: 5 ft 1 in Wt: 209lbs BSA: 1.92 BP: 109/56 mmHg Rhythm: NSR Echo Procedure The patient underwent an Exercise Stress Test using the Curry Protocol. Blood pressure, heart rate, and EKG were monitored. An Echocardiogram was performed by shampoo technician in four stages in quad fashion. At peak stress, four selected images were obtained and placed side by side with resting images for comparison. Stress Test Details Test: Exercise stress testing was performed using a Curry protocol. HR Resting HR: 78 bpm Max Heart Rate (APMHR): 197 bpm Max HR Achieved: 172 bpm Target HR (85% APMHR): 167 bpm % of APMHR: 87 Recovery HR: 106 bpm HR response to stress: Normal HR response to stress BP Resting BP: 150/89 mmHg Max BP: 150/72 mmHg BP response to stress: Normal blood pressure response to stress. ECG Resting ECG: NSR Stress EC.[address] depression Arrhythmia: None Clinical Exercise duration: 5:10 min Overall Exercise Capacity for Age: Poor Echo Findings The Pre-Stress Echocardiogram showed globalnormal left ventricular contractility with an estimated Ejection Fraction of about 60%. Normal wall motion in all segments on baseline images. The Post-Stress Echocardiogram showed normal left ventricular contractility with an estimated Ejection Fraction of about 65%. Normal left ventricular size and function with no regional wall motion abnormalities. Other Information Study Quality: Adequate Conclusion Poor exercise capacity compared to age and sex matched peers. Good augmentation of LV systolic function at peak stress. No regional wall motion abnormalities noted at peak stress. Overall, results are consistent with normal stress echocardiogram. Electronically signed by : Monique Spear MD 06/29/2024 11:40:34
== END 2024-06-23 23:59 | disposition home or self-care (01) ==
LOC: RT 08:03
PROVIDERS: Visit Provider Nurse Practitioner
DX: I47.29 Other ventricular tachycardia (principal); R00.2 Palpitations; R07.89 Other chest pain
CPT/HCPCS: 93017; 93018; 93350

== ENCOUNTER 2024-10-29 09:00 | Outpatient (CLI) | payer MEDICAID, SELFPAY ==
--- OUTSIDE RECORDS SUMMARY | 2024-09-17 13:15 | XMS_ITS | Encounter Summary ---
Author Organization [place] [address] Care Team Providers Care Clinical Laboratory Director Name Role Phone Sukumar Garcia MD Primary Care Provider [phone] Reason for Visit * Reason Comments Hematuria Dysuria for 2 days Encounter Details Date Type Department Care Team (Latest Contact Info) Description 09/17/2024 1:15 PM EDT Office Visit [facility] [address] [place] [address] Shannan Reyes, CREDIT ADVISOR [address] [place] [address] UTI (urinary tract infection), uncomplicated (Primary Dx); Obesity, Class III, BMI 40-49.9 (morbid obesity) Social History Tobacco Use Types Packs/Day Years Used Date Smoking Tobacco: Former Cigarettes 0.3 0.2 0 04/21/2019 - 07/20/2019 Passive Smoke Exposure: Current Smokeless Tobacco: Never Alcohol Use Standard Drinks/Week Comments No 0 (1 standard drink = 0.6 oz pur e alcohol) PHQ-2 Answer Date Recorded PHQ-2 Total Score 0 09/17/2024 Sexually Active Control Partners Comments Yes Male Comments No Sex and Gender Information Value Date Recorded Sex Assigned at Not on file Legal Sex Female 5:35 AM EDT Gender Identity Not on file Sexual Orientation Not on file documented as of this encounter Last Filed Vital Signs Vital Sign Reading Time Taken Comments Blood Pressure 118/74 09/17/2024 1:16 PM EDT Pulse 88 09/17/2024 1:16 PM EDT Temperature 36.4 C (97.6 F) 09/17/2024 1:16 PM EDT Respiratory Rate 20 09/17/2024 1:16 PM EDT Oxygen Saturation 98% 09/17/2024 1:16 PM EDT Inhaled Oxygen Concentration - - Weight 104.4 kg (230 lb 3.2 oz) 09/17/2024 1:16 PM EDT Height 154.9 cm (5' 1 ) 09/17/2024 1:16 PM EDT Body Mass Index 43.5 09/17/2024 1:16 PM EDT documented in this encounter Functional Status * Is the person deaf or does he/she have serious difficulty hearing? Answer Date of Assessment Author No 04/23/2019 4:15 PM Merry Chino RMA * Is the person blind or does he/she have serious difficulty seeing even when wearing glasses? Answer Date of Assessment Author No 04/23/2019 4:15 PM EST Merry Romero RMA * Does this person have serious difficulty walking or climbing stairs? Answer Date of Assessment Author No 04/23/2019 4:15 PM Merry Chino RMA * Does this person have difficulty dressing or bathing? Answer Date of Assessment Author No 04/23/2019 4:15 PM Merry Chino RMA * Because of a physical, mental or emotional condition, does this person have difficulty doing errands alone such as visiting a doctor's office or shopping? Answer Date of Assessment Author No 04/23/2019 4:15 PM Merry Chino RMA * PHQ-9 Total Score Answer Date of Assessment Author 0 09/17/2024 1:13 PM EDT Merry Romero RMA * Question Answer Date of Assessment Author Little interest or pleasure in doing things 0 09/17/2024 1:13 PM EDT Merry Ledezma RMA Feeling down, depressed, or hopeless 0 09/17/2024 1:13 PM EDT Merry Ledezma RMA PHQ-2 Total Score 0 09/17/2024 1:13 PM EDT Merry Ledezma RMA documented as of this encounter Mental Status * Because of a physical, mental or emotional condition, does this person have serious difficulty concentrating, remembering or making decisions? Answer Entry Date Author No 04/23/2019 4:15 PM EST Merry Romero RMA documented in this encounter Ordered Prescriptions Prescription Sig Dispense Quantity Refills Last Filled Start Date End Date phentermine (ADIPEX-P) 37.5 mg Oral TabletIndications:O besity, Class III, BMI 40-49.9 (morbid obesity) Take 1 Tablet by mouth every morning (before breakfast) for 30 days. 30 Tablet 09/17/2024 5 sulfamethoxazole-tr imethoprim (BACTRIM DS) 800-160 mg Oral TabletIndications:U TI (urinary tract infection), uncomplicated Take 1 Tablet by mouth every 12 hours for 10 days. 20 Tablet 09/17/2024 5 documented in this encounter Progress Notes * Shannan Reyes APRN - 09/17/2024 1:15 PM EDT Assessment & Plan 1.Urinary tract infection. - Urinalysis showed large amounts of microscopic blood, moderate leukocytes, and cloudy urine, indicating a possible UTI. - A urine culture will be sent for further diagnostic evaluation to identify the bacteria and determine the most effective antibiotic. - Bactrim has been prescribed. Advised to take [id number] Azo for symptom relief and to increase fluid intake, including water and cranberry juice or supplements. The results of the urine culture will be communicated by Friday or Friday, and the antibiotic will be adjusted if necessary. 2. Weight management. - Expressed concerns about weight gain and difficulty losing weight despite regular exercise. - Adipex (phentermine) has been discussed as a potential treatment option. - Advised to start with half a tablet daily and adjust based on response. Potential side effects, including increased blood pressure and palpitations, were discussed. - Advised to maintain a daily caloric intake of 1200 to 1500 calories and to stay hydrated by sipping water throughout the day. A follow-up appointment will be scheduled in one month for a weight check and blood pressure monitoring to ensure tolerance and effectiveness of the medication. Dx/Orders: Diagnoses and all orders for this visit: UTI (urinary tract infection), uncomplicated - SEP URINALYSIS POC - sulfamethoxazole-trimethoprim (BACTRIM DS) 800-160 mg Oral Tablet; Take 1 Tablet by mouth every 12 hours for 10 days. Dispense: 20 Tablet; Refill: 0 - URINE CULTURE (NO STAIN); Future Obesity, Class III, BMI 40-49.9 (morbid obesity) (Chronic) - phentermine (ADIPEX-P) 37.5 mg Oral Tablet; Take 1 Tablet by mouth every morning (before breakfast) for 30 days. Dispense: 30 Tablet; Refill: 0 Return if symptoms worsen or fail to improve. Teodora Oleary is a 23 y.o. female Chief Complaint Patient presents with Hematuria Dysuria for 2 days History of Present Illness The patient is a 23-year-old female who presents with complaints of a possible urinary tract infection (UTI), noting blood in her urine with a foul odor for 2 days. She reports the onset of UTI symptoms last night, although she acknowledges the possibility of an earlier start. She has not experienced any changes in vaginal discharge or fevers. She also reports no back or pelvic pain but mentions a constant presence of some form of pain. She does not recall thedate of her last menstrual period. She has decided to discontinue Depo-Provera due to weight gain, despite regular gym attendance 3 days a week after work. Her last Depo-Provera injection was administered in 06/2024. She expresses interest in weight loss medication, having previously been prescribed topiramate for headaches, which she was informed could aid in weight loss. However, she discontinued the medication due to side effects such as tingling, numbness, and altered taste. Review of Systems Constitutional: Negative. HENT: Negative. Respiratory: Negative. Cardiovascular: Negative. Gastrointestinal: Negative. Genitourinary: Positive for dysuria and hematuria. Negative for difficulty urinating, pelvic pain and vaginal discharge. Skin: Negative. Neurological: Negative. Psychiatric/Behavioral: Negative. Objective Blood pressure 118/74, pulse 88, temperature 97.6 ??F (36.4 ??C), temperature source Temporal, resp. rate 20, height 5' 1 (1.549 m), weight 230 lb 3.2 oz (104.4 kg), SpO2 98%, not currently . Body mass index is 43.5 kg/m??. Physical Exam Vitals reviewed. Constitutional: General: She is not in acute distress. HENT: Mouth/Throat: Mouth: Mucous membranes are moist. Eyes: Conjunctiva/sclera: Conjunctivae normal. Cardiovascular: Rate and Rhythm: Normal rate and regular rhythm. Pulmonary: Effort: Pulmonary effort is normal. Breath sounds: Normal breath sounds. Abdominal: General: Bowel sounds are normal. Palpations: Abdomen is soft. Tenderness: There is no abdominal tenderness. There is no right CVA tenderness or left CVA tenderness. Musculoskeletal: Cervical back: Neck supple. Right lower leg: No edema. Left lower leg: No edema. Skin: General: Skin is warm. Coloration: Skin is not jaundiced. Findings: No rash. Neurological: Mental Status: She is alert and oriented to person, place, and time. Psychiatric: Mood and Affect: Mood normal. Thought Content: Thought content normal. Results Labs Results for orders placed or performed in visit on 09/17/24 SEP URINALYSIS POC Result Value Ref Range UA Color POC Other Color UA Appear POC Slightly Cloudy (A) Clear UA Gluc POC Negative Negative mg/dL UA Bili POC Negative Negative UA Ketones POC Negative Negative mg/dL UA SG POC 1.015 1.001 - 1.035 no units UA Blood POC Large (A) Negative UA pH POC 6.5 5.0 - 8.0 pH UA Protein POC Negative Negative mg/dL UA Urobilinogen POC 0.2 0.2, 1.0 UA Nitrite POC Negative Negative UA Leuk Est POC Moderate (A) Negative The provider educated the patient (or legal admissions representative) on the use of the ambient listening artificial intelligence tool, Naroomi. They were informed that this AI tool processes the conversation to generate a clinical note with the expected benefit of improved accuracy while achieving an improved encounter experience for the patient and provider.?The provider explained that the medical information captured by the AI tool including, but not limited to, diagnoses and treatment plan would be protected in accordance with applicable privacy laws and that all diagnoses and treatment decisions would be made by the provider. The provider explained that the note generated will be reviewed bythe provider for accuracy to minimize potential errors.? The patient was given an opportunity to ask questions and opt out of proceeding with the use of the AI tool. After being informed of such information, the patient (or legal admissions representative), and each individual in attendance with the patient, verbally consented to the use of the AI tool. documented in this encounter Plan of Treatment Not on file documented as of this encounter Goals Goal Patient Goal Type Associated Problems Recent Progress Patient-Stated? Author Blood Pressure < 140/90 Blood Pressure 118/74(2024 1:16 PM EDT) No Misty Black CCMA Maintain a healthy diet, exercise regularly and maintain an ideal body weight General No Janis Ackerman CCMA Stay Tobacco Free Lifestyle No Misty Black CCMA documented as of this encounter Procedures Procedure Name Priority Date/Time Associated Diagnosis Comments URINE CULTURE (NO STAIN) Routine 09/17/2024 2:05 PM EDT UTI (urinary tract infection), uncomplicated SEP URINALYSIS POC Routine 09/17/2024 1: 29 PM EDT UTI (urinary tract infection), uncomplicated documented in this encounter Results * (ABNORMAL) URINE CULTURE (NO STAIN) (09/17/2024 2:05 PM EDT) Culture Positive Growth(A) 09/20/2024 10:32 AM EDT [facility] Culture >100,000 CFU/mL Escherichia coli SUSCEPTIBI LITY RESULT 09/20/2024 10:32 AM EDT [facility] Urine STRUCTURE OF URINARY TRACT PROPER / Unknown 09/17/2024 2:05 PM EDT 09/17/2024 2:05 PM EDT Narrative Organism Antibiotic Method Susceptibility Escherichia coli Amikacin SUSCEPTIBILITY RESULT Escherichia coli Amoxicillin/Clavulanate SUSCEPTIBILIT Y RESULT <=8/4 ug/mL: Susceptible Escherichia coli Ampicillin SUSCEPTIBILITY RESULT <=8 ug/mL: Susceptible Escherichia coli Ampicillin/Sulbactam SUSCEPTIBILITY R ESULT <=4/2 ug/mL: Susceptible Escherichia coli Aztreonam SUSCEPTIBILITY RESULT <=4 ug/mL: Susceptible Escherichia coli Cefazolin SUSCEPTIBILITY RESULT <=2 ug/mL: Susceptible Escherichia coli Cefepime SUSCEPTIBILITY RESULT Escherichia coli Cefotaxime SUSCEPTIBILITY RESULT Escherichia coli Cefoxitin SUSCEPTIBILITY RESULT <=8 ug/mL: Susceptible Escherichia coli Ceftazidime SUSCEPTIBILITY RESULT Escherichia coli Ceftazidime/Avibactam SUSCEPTIBILITY RESULT Escherichia coli Ceftolozane/Tazobactam SUSCEPTIBILITY RESULT Escherichia coli Ceftriaxone SUSCEPTIBILITY RESULT Escherichia coli Cefuroxime SUSCEPTIBILITY RESULT Escherichia coli Ciprofloxacin SUSCEPTIBILITY RESULT <=0.25 ug/mL: Susceptible Escherichia coli Ertapenem SUSCEPTIBILITY RESULT <=0.5 ug/mL: Susceptible Escherichia coli Gentamicin SUSCEPTIBILITY RESULT <=2 ug/mL: Susceptible Escherichia coli Imipenem SUSCEPTIBILITY RESULT <=1 ug/mL: Susceptible Escherichia coli Levofloxacin SUSCEPTIBILITY RESULT <=0.5 ug/mL: Susceptible Escherichia coli Meropenem SUSCEPTIBILITY RESULT <=1 ug/mL: Susceptible Escherichia coli Meropenem/Vaborbactam SUSCEPTIBILITY RESULT Escherichia coli Minocycline SUSCEPTIBILITY RESULT Escherichia coli Moxifloxacin SUSCEPTIBILITY RESULT Escherichia coli Nitrofurantoin SUSCEPTIBILITY RESULT <=32 ug/mL: Susceptible Escherichia coli Piperacillin/Tazobactam SUSCEPTIBILIT Y RESULT <=8 ug/mL: Susceptible Escherichia coli Tetracycline SUSCEPTIBILITY RESULT <=4 ug/mL: Susceptible Escherichia coli Tigecycline SUSCEPTIBILITY RESULT Escherichia coli Tobramycin SUSCEPTIBILITY RESULT <=2 ug/mL: Susceptible Escherichia coli Trimethoprim/Sulfame tho xazole SUSCEPTIBILITY RESULT <=0.5/9.5 ug/mL: Susceptible Shannan Reyes APRN MICROBIOLOGY - GENERAL OR DERABLES Final Result Performing Organization Address City/State/[facility] Co de Phone Number [facility], [address], [place] [address] * (ABNORMAL) SEP URINALYSIS POC (09/17/2024 1:29 PM EDT) UA Color POC Other Color 09/17/2024 1:31 PM EDT [facility] UA Appear POC Slightly Cloudy(A) Clear 09/17/2024 1:31 PM EDT [facility] [place] UA Gluc POC Negative Negative mg/dL 09/17/2024 1:31 PM EDT [facility] [place] UA Bili POC Negative Negative 09/17/2024 1:31 PM EDT [facility] [place] UA Ketones POC Negative Negative mg/dL 09/17/2024 1:31 PM EDT [facility] [place] UA SG POC 1.015 1.001 - 1.035 no units 09/17/2024 1:31 PM EDT [facility] [place] UA Blood POC Large(A) Negative 09/17/2024 1:31 PM EDT [facility] [place] UA pH POC 6.5 5.0 - 8.0 pH 09/17/2024 1:31 PM EDT [facility] [place] UA Protein POC Negative Negative mg/dL 09/17/2024 1:31 PM EDT [facility] [place] UA Urobilinogen POC 0.2 0.2, 1.0 09/17/2024 1:31 PM EDT [facility] [place] UA Nitrite POC Negative Negative 09/17/2024 1:31 PM EDT [facility] [place] UA Leuk Est POC Moderate(A) Negative 09/18/19 1:31 PM EDT [facility] [place] Urine STRUCTURE OF URINARY TRACT PROPER / Unknown 09/17/2024 1:29 PM EDT 09/17/2024 1:31 PM EDT Shannan Reyes CREDIT ADVISOR POINT OF CARE TEST ORDERA BLES Final Result [facility] [address] [place], [place] [address] documented in this encounter Visit Diagnoses Diagnosis UTI (urinary tract infection), uncomplicated- Primary Urinary tract infection, site not specified Obesity, Class III, BMI 40-49.9 (morbid obesity) Morbid obesity documented in this encounter Discontinued Medications Medication Sig Discontinue Reason Start Date End Da te sertraline (ZOLOFT) 50 mg Oral TabletIndications:Anxi ety with depression Take 1 Tablet by mouth daily for 360 days. DELETE- Stopped by provider 06/04/2024 09/17/2024 topiramate (TOPAMAX) 50 mg Oral TabletIndications:Kong gn headache Take 1 Tablet by mouth 2 times daily for 180 days. DELETE- Stopped by provider 06/04/2024 09/17/2024 documented as of this encounter Care Teams Clinical Laboratory Director Relationship Specialty Start Date End Date Sukumar Garcia MD [address] [place] [id number] PCP - General Internal Medicine 05/21/21 documented as of this encounter
--- OUTSIDE RECORDS SUMMARY | 2024-11-01 11:47 | XMS_ITS | Clinical Summary ---
Author Organization [facility] Address [address] [place] [address] Phone Care Team Providers Care Mainspring Winder Name Role Phone Jeromy Barone MD Primary Care Physician [ ] Conditions or Problems Problem Name Problem Code Onset Date Status Entry Date Provider Comment Standard Description Annotate Screening, cervical cancer 120318591 (SNOMED CT) 05/17 Active 05/17 Tyrone Dugan APRN Screening for malignant neoplasm of cervix Body mass index (BMI) 38.0-38.9; adult Z68.38 (ICD-10-CM ) 05/17 Active 05/17 Tyrone Karenl [employer] Body mass index [BMI] 38.0-38.9, adult Body mass index (BMI) 34.0-34.9; adult Z68.34 (ICD-10-CM ) 01/04 Correction 01/04 Tryone Ritchie [employer] Body mass index [BMI] 34.0-34.9, adult Irregular menses 55704732 (SNOMED CT) 05/17 Active 05/17 Tyrone Howdeshell [employer] Irregular periods Body mass index (BMI) 34.0-34.9; adult Z68.34 (ICD-10-CM ) 01/04 Removed 01/04 Diamond Mann [employer] BCADM Body mass index [BMI] 34.0-34.9, adult Body mass index (BMI) 35.0-35.9; adult Z68.35 (ICD-10-CM ) 11/24 Correction 11/24 Diamond Mann [employer] BCADM Body mass index [BMI] 35.0-35.9, adult Nausea [id number] (SNOMED CT) 01/04 Active 01/04 Diamond Mackenzie GUZMANN BCADM Nausea GERD-esopha geal reflux 569377800 (SNOMED CT) 01/04 Active 01/04 Diamond Mackenzie GUZMANN BCADM Gastroesophage al reflux disease Body mass index (BMI) 35.0-35.9; adult Z68.35 (ICD-10-CM ) 11/24 Removed 11/24 Diamond Mackenzie GUZMANN BCADM Body mass index [BMI] 35.0-35.9, adult Body mass index (BMI) 33.0-33.9; adult Z68.33 (ICD-10-CM ) 05/31 Correction 05/31 Diamond Mackenzie GUZMANN BCADM Body mass index [BMI] 33.0-33.9, adult Body mass index (BMI) 33.0-33.9; adult Z68.33 (ICD-10-CM ) 05/31 Removed 05/31 Tyrone Dugan APRN Body mass index [BMI] 33.0-33.9, adult Body mass index (BMI) 32.0-32.9; adult Z68.32 (ICD-10-CM ) 01/05 Correction 01/05 Tyrone Dugan APRN Body mass index [BMI] 32.0-32.9, adult HSV 92747268 (SNOMED CT) 05/29 Active 05/29 Tyrone Dugan APRN Herpesvirus infection 1 & 2 Std screening 789161744 (SNOMED CT) 05/21 Active 05/21 Tyrone Dugan APRN Venereal disease screening Body mass index (BMI) 32.0-32.9; adult Z68.32 (ICD-10-CM ) 01/05 Removed 01/05 Sandie Rodriguez MD Body mass index [BMI] 32.0-32.9, adult Body mass index (BMI) pediatric; less than 5th percentile for age Z68.51 (ICD-10-CM ) 11/06 Correction 11/06 Sandie Rodriguez MD Body mass index [BMI] pediatric, less than 5th percentile for age CONTRACEPTI VE MGMT Z30.40 (ICD-10-CM ) 01/05 Active 01/05 Sandie Rodriguez MD Encounter for surveillance of contraceptives , unspecified Anemia 646530570 (SNOMED CT) 01/05 Active 01/05 Sandie Rodriguez MD Anemia Supervision , normal first 121968287 (SNOMED CT) 05/30 Resolved 05/30 Sandie Rodriguez MD Primigravida Encounter for screening for malformatio ns 162818964 (SNOMED CT) 06/27 Resolved 06/27 Sandie Rodriguez MD screening for malformation Uterine size-date discrepancy , unspecified trimester 237626422 (SNOMED CT) 10/18 Resolved 10/18 Sandie Rodriguez MD Uterine size for dates discrepancy care 934859312 (SNOMED CT) 01/05 Active 01/05 Sandie Rodriguez MD care Body mass index (BMI) pediatric; less than 5th percentile for age Z68.51 (ICD-10-CM ) 11/06 Removed 11/06 Sandie Rodriguez MD Body mass index [BMI] pediatric, less than 5th percentile for age Body mass index (BMI) pediatric; less than 5th percentile for age Z68.51 (ICD-10-CM ) 11/01 Correction 11/01 Sandie Rodriguez MD Body mass index [BMI] pediatric, less than 5th percentile for age Gestational hypertensio n, third trimester 50742202 (SNOMED CT) 11/06 Inactive 11/06 Sandie Rodriguez MD -alexandra lester hypertension 36 weeks gestation of 25901681 (SNOMED CT) 11/01 Resolved 11/02 Sandie Rodriguez MD Gestation period, 36 weeks 37 weeks gestation of Z3A.37 (ICD-10-CM ) 11/06 Inactive 11/06 Sandie Rodriguez MD 37 weeks gestation of 36 weeks gestation of 68037899 (SNOMED CT) 11/01 Removed 11/02 Sandie Rodriguez MD Gestation period, 36 weeks Body mass index (BMI) pediatric; less than 5th percentile for age Z68.51 (ICD-10-CM ) 11/01 Removed 11/01 Sandie Rodriguez MD Body mass index [BMI] pediatric, less than 5th percentile for age Body mass index (BMI) pediatric; less than 5th percentile for age Z68.51 (ICD-10-CM ) 10/25 Correction 10/25 Sandie Rodriguez MD Body mass index [BMI] pediatric, less than 5th percentile for age Body mass index (BMI) pediatric; less than 5th percentile for age Z68.51 (ICD-10-CM ) 10/25 Removed 10/25 Sandie Rodriguez MD Body mass index [BMI] pediatric, less than 5th percentile for age Body mass index (BMI) pediatric; less than 5th percentile for age Z68.51 (ICD-10-CM ) 10/18 Correction 10/18 Sandie Rodriguez MD Body mass index [BMI] pediatric, less than 5th percentile for age Body mass index (BMI) pediatric; less than 5th percentile for age Z68.51 (ICD-10-CM ) 10/18 Removed 10/18 Sandie Rodriguez MD Body mass index [BMI] pediatric, less than 5th percentile for age Body mass index (BMI) pediatric; less than 5th percentile for age Z68.51 (ICD-10-CM ) 10/04 Correction 10/04 Sandie Rodriguez MD Body mass index [BMI] pediatric, less than 5th percentile for age Uterine size-date discrepancy , unspecified trimester 696345628 (SNOMED CT) 10/18 Removed 10/18 Sandie Rodriguez MD Uterine size for dates discrepancy 34 weeks gestation of 46968166 (SNOMED CT) 10/18 Inactive 10/18 Sandie Rodriguez MD Gestation period, 34 weeks Body mass index (BMI) pediatric; less than 5th percentile for age Z68.51 (ICD-10-CM ) 10/04 Removed 10/04 Tyrone Dugan APRN Body mass index [BMI] pediatric, less than 5th percentile for age Body mass index (BMI) pediatric; less than 5th percentile for age Z68.51 (ICD-10-CM ) 09/06 Correction 09/10 Tyrone Dugan APRN Body mass index [BMI] pediatric, less than 5th percentile for age Body mass index (BMI) pediatric; less than 5th percentile for age Z68.51 (ICD-10-CM ) 09/06 Removed 09/10 Sandie Rodriguez MD Body mass index [BMI] pediatric, less than 5th percentile for age Body mass index (BMI) pediatric; less than 5th percentile for age Z68.51 (ICD-10-CM ) 08/23 Correction 08/23 Sandie Rodriguez MD Body mass index [BMI] pediatric, less than 5th percentile for age 26 weeks gestation of 70148008 (SNOMED CT) 08/23 Inactive 08/24 Sandie Rodriguez MD Gestation period, 26 weeks Body mass index (BMI) pediatric; less than 5th percentile for age Z68.51 (ICD-10-CM ) 08/23 Removed 08/23 Sandie Rodriguez MD Body mass index [BMI] pediatric, less than 5th percentile for age Body mass index (BMI) pediatric; less than 5th percentile for age Z68.51 (ICD-10-CM ) 07/25 Correction 07/25 Sandie Rodriguez MD Body mass index [BMI] pediatric, less than 5th percentile for age Body mass index (BMI) pediatric; less than 5th percentile for age Z68.51 (ICD-10-CM ) 07/25 Removed 07/25 Tyrone Dugan APRN Body mass index [BMI] pediatric, less than 5th percentile for age Body mass index (BMI) pediatric; less than 5th percentile for age Z68.51 (ICD-10-CM ) 06/27 Correction 06/27 Tyrone Dugan APRN Body mass index [BMI] pediatric, less than 5th percentile for age Body mass index (BMI) pediatric; less than 5th percentile for age Z68.51 (ICD-10-CM ) 06/27 Removed 06/27 Snadie Rodriguez MD Body mass index [BMI] pediatric, less than 5th percentile for age 18 weeks gestation of 44742402 (SNOMED CT) 06/27 Inactive 06/27 Sandie Rodriguez MD Gestation period, 18 weeks Body mass index (BMI) pediatric; less than 5th percentile for age Z68.51 (ICD-10-CM ) 05/24 Correction 05/24 Sandie Rodriguez MD Body mass index [BMI] pediatric, less than 5th percentile for age Encounter for screening for malformatio ns 086312293 (SNOMED CT) 06/27 Removed 06/27 Sandie Rodriguez MD screening for malformation Body mass index (BMI) pediatric; less than 5th percentile for age Z68.51 (ICD-10-CM ) 05/24 Removed 05/24 Sandie Rodriguez MD Body mass index [BMI] pediatric, less than 5th percentile for age Body mass index (BMI) pediatric; less than 5th percentile for age Z68.51 (ICD-10-CM ) 04/26 Correction 04/26 Sandie Rodriguez MD Body mass index [BMI] pediatric, less than 5th percentile for age Heartburn 40428894 (SNOMED CT) 05/24 Active 05/24 Sandie Rodriguez MD Heartburn 13 weeks gestation of 98295393 (SNOMED CT) 05/24 Inactive 05/24 Sandie Rodriguez MD Gestation period, 13 weeks Body mass index (BMI) pediatric; less than 5th percentile for age Z68.51 (ICD-10-CM ) 04/26 Removed 04/26 Sandie Rodriguez MD Body mass index [BMI] pediatric, less than 5th percentile for age Body mass index (BMI) pediatric; less than 5th percentile for age Z68.51 (ICD-10-CM ) 05/30 Correction 05/30 Sandie Rodriguez MD Body mass index [BMI] pediatric, less than 5th percentile for age 9 weeks gestation of 879584 (SNOMED CT) 04/26 Inactive 04/26 Sandie Rodriguez MD Gestation period, 9 weeks Body mass index (BMI) pediatric; less than 5th percentile for age Z68.51 (ICD-10-CM ) 05/30 Removed 05/30 Sandie Rodriguez MD Body mass index [BMI] pediatric, less than 5th percentile for age Less than 8 weeks gestation of 51651337 (SNOMED CT) 05/30 Inactive 05/30 Sandie Rodriguez MD First trimester Counseling for nutrition Z71.3 (ICD-10-CM ) 05/30 Inactive 05/30 Sandie Rodriguez MD Dietary counseling and surveillance Irregular menses 19085877 (SNOMED CT) 05/30 Active 05/30 Sandie Rodriguez MD Irregular periods Supervision , normal first 217641403 (SNOMED CT) 05/30 Removed 05/30 Sandie Rodriguez MD Primigravida Medications Medication Instructions Start Date Stop Date Generic Name [facility] Provider DEPO-PROVERA 150 MG/ML ALMA Inject 1 ml intramuscularly every three months to be given in doctor's office only 01/05 medroxyprogester one 70104264894 Sandie Rodriguez MD MEDROXYPROGESTERONE ACETATE 150 MG/ML ALMA INJECT 1 ML INTRAMUSCULARLY EVERY THREE MONTHS TO BE GIVEN IN DOCTOR'S OFFICE ONLY 01/07 medroxyprogester one 91652682089 Sandie Rodriguez MD VALTREX 500 MG TABS Take 1 tablet by mouth twice a day 05/31 valacyclovir 78043962385 Tyrone Dugan APRN FERROUS SULFATE 325 (65 Fe) MG TABS Take 1 tablet by mouth twice a day 01/05 ferrous sulfate 84684367578 Sandie Rodriguez MD DEPO-PROVERA 150 MG/ML ALMA Inject 1 ml intramuscularly every three months to be given in doctor's office only 01/05 medroxyprogester one 28466799577 Sandie Rodriguez MD PLUS 27-1 MG TABS Take 1 tablet by mouth once a day 05/30 pnv,calcium 80-ekqn-htdzi acid 15584405457 Sandie Rodriguez MD OMEPRAZOLE 20 MG CPDR Take 1 capsule by mouth once a day 06/07 omeprazole 33530746336 Sandie Rodriguez MD FAMOTIDINE 20 MG TABS Take 1 tablet by mouth once a day 07/04 famotidine 54725006337 Sandie Rodriguez MD OMEPRAZOLE 20 MG TBEC Take 1 tablet by mouth once a day 09/06 omeprazole 70149544636 Sandie Rodriguez MD FAMOTIDINE 20 MG TABS TAKE 1 TABLET BY MOUTH 1 TIME A DAY 07/04 FAMOTIDINE 42642238198 Sandie Rodriguez MD OMEPRAZOLE 20 MG CPDR TAKE 1 CAPSULE BY MOUTH ONCE A DAY 06/07 OMEPRAZOLE 97662771601 Sandie Rodriguez MD FAMOTIDINE 20 MG TABS TAKE 1 TABLET BY MOUTH 1 TIME A DAY 05/24 FAMOTIDINE 92608842586 Sandie Rodriguez MD FAMOTIDINE 20 MG TABS TAKE 1 TABLET BY MOUTH 1 TIME A DAY 05/24 FAMOTIDINE 67106188467 Sandie Rodriguez MD PLUS 27-1 MG TABS TAKE 1 TABLET BY MOUTH ONCE A DAY OR COVERED EQUIVALENT 05/30 VIT-FE FUMARATE-FA 26256031184 Sandie Rodriguez MD Medications Administered No information available. Allergies, Adverse Reactions, Alerts Observed no known allergies at Results Date Name Value Unit Range Flag Description Office Visit: Room 4 HSV GENITAL no Herpes si mplex virus identified in Genital specimen by Organism specific culture Lab Report: OBSTETRIC PANEL, OBSTETRIC PANEL, OBSTETRIC PANEL, OBSTETRIC ... RUBELLA IGG 9.67 N Rubella v irus IgG Ab [Units/volume] in Serum HBSAG NON-REACTIVE NON-REACTIV E N Hepatitis B virus surface Ag [Units/volume] in Serum ABO/RH RH(D) POSITIVE blood type with RH factor ABO BLD GRP O ABO blood group ANTIBODY SCR NO ANTIBODIES DETECTED N antibody screen, serum Replaced Document: DRUG OSIEL TOR, PANEL 1, SCREEN, URINE, CULTURE, URINE, ROUTINE PHENCYCLIDIN NEGATIVE ng/mL <25 N Phencyc lidine [Presence] in Urine OXYCODONE NEGATIVE <100 N Oxycodone urine screening METHADONEURN NEGATIVE <100 N Methado ne [Presence] in Urine by Screen method COCAINE UR NEGATIVE <150 N cocaine, urine MARIJUANAURN NEGATIVE <20 N Marijua na, cannabinoid screen Urine BENZODIAZ UR NEGATIVE <100 N Benzodi azepines [Presence] in Urine AMPHETAMI UR NEGATIVE <500 N Ampheta mines [Presence] in Urine Lab Report: GLUCOSE TOLERANC E TEST, GEST, 3 SPEC (75G), CBC (H/H, RBC, I ... GTT 2H 112 mg/dL <153 N blood glucose , 2 hours after glucose tolerance test GTT 1H 133 mg/dL <180 N blood glucose , 60 minutes after glucose tolerance test GTT FASTING 73 mg/dL 65-91 N glucose t olerance test with glucose, fasting Lab Report: CULTURE, URINE, ROUTINE URINE CULT See Note Below Zahra teria identified in Urine by Culture Lab Report: STREPTOCOCCUS, G ROUP B CULTURE STREP B CULT See Note Below S treptococcus agalactiae [Presence] in Specimen by Organism specific culture Lab Report: PROTEIN, TOTAL W /CREAT, RANDOM URINE PROTEIN UR 13 mg/dL 5-24 N protein, t otal urine random CREATIN UR 52 mg/dL 20-275 N Creatinine [Mass/volume] in Urine Office Visit: [facility] SPEC GR URIN 1.015 Specific gravity of Urine by Test strip PH URINE 7.0 pH of Urine by Test strip GLUCOSE, URN negative Glucose [Mass/volume] in Urine by Test strip BILIRUBIN UR negative Bilirub in.total [Presence] in Urine by Test strip KETONES URN negative Ketones [Mass/volume] in Urine by Test strip BLOOD UR DIP negative blood i n urine (hemoglobin) by dipstick PROTEIN, URN negative protein , urine, semiquantitative (dipstick) UROBILINOGEN 0.2 Urobilin ogen [Presence] in Urine by Test strip NITRITE URN negative Nitrite [Presence] in Urine by Test strip WBC DIPSTK U trace Leukocyt e esterase [Presence] in Urine by Test strip Lab Report: BV/VAGINITIS C[place] EL DNA PROBE, CHLAMYDIA/N. GONORRHOEAE RNA, ... DNAPROBECAND NOT DETECTED NOT DETECTED N Marcela guilliermondii DNA [Presence] in Specimen by MICHEL with probe detection VAGCULTGARDN NOT DETECTED NOT DETECTED N Vaginal Culture Gardnerella TRICHO WET NOT DETECTED NOT DETECTED N Trichomonas vaginalis [Presence] in Genital specimen by Wet preparation Lab Report: HEPATITIS C AB W /REFL TO HCV RNA, QN, PCR, HSV 1/2 IGG,TYPE ... RPR NON-REACTIVE NON-REACTIV E N Reagin Ab [Units/volume] in Serum by VDRL HIV AB NON-REACTIVE NON-REACTIV E N HIV 1 Ab [Presence] in Cerebral spinal fluid by Immunoblot HEP C AB NON-REACTIVE NON-REACTIV E N Hepatitis C virus Ab [Presence] in Serum Lab Report: LIPID PANEL WITH REFLEX TO DIRECT LDL, LIPID PANEL WITH REFL ... SGPT (ALT) 13 U/L 6-29 N Alanine aminotransferase [Enzymatic activity/volume] in Serum or Plasma SGOT (AST) 15 U/L 10-30 N Aspartate aminotransferase [Enzymatic activity/volume] in Serum or Plasma ALK PHOS 68 U/L 31-125 N Alkaline phosphatase [Enzymatic activity/volume] in Blood BILI INDIREC 0.4 MG/DL (CALC) mg/dL 0.2-1.2 N bilirubin, serum , indirect BILI DIRECT 0.1 mg/dL < OR = 0.2 N Biliru bin.direct [Mass/volume] in Serum or Plasma BILI TOTAL 0.5 mg/dL 0.2-1.2 N Bilirubin. total [Mass/volume] in Serum or Plasma A/G RATIO 1.5 (calc) 1.0-2.5 N Albumin/ Globulin [Mass Ratio] in Serum or Plasma GLOBULIN TOT 2.9 G/DL (CALC) g/dL 1.9-3.7 N Globulin [Mass/volume] in Serum ALBUMIN EOP 4.4 g/dL 3.6-5.1 N Albumin [Mass/volume] in Serum or Plasma by Electrophoresis PROTEIN, TOT 7.3 g/dL 6.1-8.1 N Protein [Mass/volume] in Serum or Plasma CALCIUM 9.9 mg/dL 8.6-10.2 N Calcium [Moles/volume] in Serum or Plasma CO2 26 mmol/L 20-32 N Carbon dioxid e, total [Moles/volume] in Venous blood CHLORIDE BLD 106 mmol/L 98-110 N chloride , blood POTASSIUM 4.6 mmol/L 3.5-5.3 N Potassium [Moles/volume] in Serum or Plasma SODIUM 139 mmol/L 135-146 N Sodium [Moles/volume] in Serum or Plasma BUN/CREAT NOT APPLICABLE (calc) 6-22 Urea nitrogen/Creatinine [Mass Ratio] in Serum or Plasma CREATININE 0.84 mg/dL 0.50-0.96 N Creatini ne [Mass/volume] in Serum or Plasma BUN 13 mg/dL 7-25 N Urea nitrogen [Mass/volume] in Serum or Plasma GLUCOSE SER 85 mg/dL 65-99 N Glucose [Mass/volume] in Serum or Plasma NON-HDL CHOL 99 MG/DL (CALC) mg/dL <130 N cholesterol, non-HDL, total CHOL/HDL % 3.4 (calc) <5.0 N cholest jacinta/HDL ratio, serum, percent LDL 84 MG/DL (CALC) mg/dL N Cholesterol in L DL [Mass/volume] in Serum or Plasma - mg/dL TRIGLYC TOT 66 mg/dL <150 N Triglycer annie [Mass/volume] in Serum or Plasma - mg/dL HDL 41 mg/dL >OR = 50 L Cholesterol in HDL [Mass/volume] in Serum or Plasma - mg/dL CHOLESTEROL 140 mg/dL <200 N Cholester ol [Mass/volume] in Serum or Plasma - mg/dL Office Visit: [facility] visit LABS ORDERED Test 92915 Laboratory tests ordered PREG TST URN negative beta HC G, urine, semiquantitative Lab Report: HEMOGLOBIN A1c, TSH W/REFLEX TO FT4, CBC (INCLUDES DIFF/PLT) ... PROLACTIN 10.2 ng/mL N Prolactin [Mass/volume] in Serum or Plasma BASO % MANU 0.4 % N basophils as percent of blood leukocytes, manual count EOS % MANU 1.4 % N eosinophil s as percent of blood leukocytes, manual count MONOCYTE % 7.9 % N Monocytes/ 100 leukocytes in Blood by Automated count LYMPH% P BLD 24.9 % N lymphocy ana as percent of blood leukocytes PMN % 65.4 % N Neutrophils/1 00 leukocytes in Blood by Automated count ABS BASOS 37 {Cells}/ uL 0-200 N Basophils [#/volume] in Blood ABS EOS 130 {Cells}/ uL 15-500 N Eosinophils [#/volume] in Blood ABS MONOS 735 {Cells}/ uL 200-950 N Monocytes [#/volume] in Blood ABSLYMPHCT 2316 {Cells}/ uL 850-3900 N Lymphocytes [#/volume] in Blood ABS NEUTROPH 6082 CELLS/UL 10*3/uL 6645-6143 N Neutrophils [#/volume] in Blood MPV 10.1 fL 7.5-12.5 N Platelet chauncey n volume [Entitic volume] in Blood by Denzel PLATELETK/UL 328 THOUSAND/UL 10*3/uL 140-400 N platelet count RDW 13.1 % 11.0-15.0 N Erythrocyte distribution width [Ratio] by Automated count OL-MCHC 33.1 g/dL 32.0-36.0 N mean corpus cular hemoglobin concentration, rbc MCH 27.7 pg 27.0-33.0 N MCH [Entiti c mass] by Automated count MCV 83.7 fL 80.0-100.0 N MCV [Entit ic volume] by Automated count HCT 38.4 % 35.0-45.0 N Hematocrit [Volume Fraction] of Blood by Automated count HGB 12.7 g/dL 11.7-15.5 N Hemoglobin [Mass/volume] in Blood RBC M/UL 4.59 MILLION/UL 10*6/uL 3.80-5.10 N red blood count WBC CT BLOOD 9.3 10*3/uL 3.8-10.8 N leukocy te count, blood TSH 1.08 u[iU]/mL N Thyrotropin [Units/volume] in Serum or Plasma HGBA1C 5.4 % OF TOTAL HGB % <5.7 N Hemoglobin A1c/Hemoglobin, total in Blood - % Plan of Care Type Date Detail Appointment 11:00 AM James Ventura or DMD, [address] [place], [address], Appointment 01:40 PM Janis alejandro Hyg, [address] [place], [address], Referral [facility], [address] [place] [address] [address], [place], [address] Pending order Test 8 1025 Pending order T1 ThinPrep Pap w reflex HR HPV/GC/Chlamydia mRNA E6/E7 Pending order T1 Prolactin Pending order T1 TSH reflex to free T4 Pending order T1 CBC with diff Pending order T1 HGBA1c Pending order T1 CBC with diff Pending Order exclud ed from report: Pending order T2 Carbam Free ( Tegretol) Pending order T1 BMP Pending Order exclud ed from report: Pending order T1 Hepatic Funct ion Panel Pending Order exclud ed from report: Pending order T1 HIV 1/2 Ag & Ab 4th gen -consent required Pending order T1 HGBA1c Pending Order exclud ed from report: Pending order T1 Lipid Panel Pending Order exclud ed from report: Pending order T1 TSH reflex to free T4 Pending Order exclud ed from report: Pending order T1 HIV 1/2 Ag & Ab 4th gen -consent required Pending Order exclud ed from report: Pending order T2 Carbam Free ( Tegretol) Pending Order exclud ed from report: Pending order Test 8 1025 Pending order Injection(s) Ord ered Pending order Other Injection (IM/SC) Pending order T2 BV Yeast Tric h Culture (Affirm) Pending order T1 G.C. Chlamydi a Pending order T1 Hep C Ab Pending order T1 HIV 1/2 Ag & Ab 4th gen -consent required Pending order T1 RPR w/ reflex to titer & confirmation Pending order T1 HSV 1/2 Ab Ig G Pending order T1 HSV 1/2 Ab Ig M Pending order Urine Dip Auto 8 1003 Pending order Test 8 1025 Pending order Hemoglobin 34936 Pending order T1 CBC with diff Pending order Depo Provera 150 mg No Charge Pending order Ultrasound Pending Order exclud ed from report: Pending order Urine Dip Auto 8 1003 Pending order Hemoglobin 88779 Pending order T1 Urine Culture Pending order Urine Dip Auto 8 1003 Pending order COVID-19 Moderna Pending order SHANA administratio n - COVID-19 - Moderna 2nd dose Pending order Urine Dip Auto 8 1003 Pending order Strep Screen 878 80 Pending order Strep Screen 878 80 Pending Order exclud ed from report: Pending order Urine Dip Auto 8 1003 Pending order Test 8 1025 Patient education Medications Patient education Medications Patient education Medications Procedures Code Procedure Name Date Entry Date [id number] Giving encouragement to exercise SCT-[id number] Former smoker CPT-3077F Most recent systolic blood pressure >=140 mm Hg CPT-08845 Test 92494 [facility] 746 T1 Prolactin [facility] 80272 T1 TSH reflex to free T4 06/19/26 [facility] 6399 T1 CBC with diff [facility] 496 T1 HGBA1c [facility] 67325 T1 ThinPrep Pap w re flex HR HPV/GC/Chlamydia mRNA E6/E7 CPT-3075F Most recent systolic blood pressure 130-1 39 mm Hg CPT-3078F Most recent diastolic blood pressure <80 mm Hg CPT-1159F Medication list documented in medical rec ord [facility] 6399 T1 CBC with diff [facility] 23236 T1 BMP [facility] 95421 T1 Hepatic Function Panel 20 11/01/16 [facility] 496 T1 HGBA1c [facility] 16860 T1 Lipid Panel [facility] 50866 T1 TSH reflex to free T4 05/30/15 [facility] 54161 T1 HIV 1/2 Ag & Ab 4th gen -consent requi red [facility] 11662 T2 Carbam Free (Tegretol) 20 11/01/16 [id number] Medication Reconciliation SCT-[id number] Giving encouragement to exercise SCT-096045697 Dietary management education/guidance/counseling SCT-046016686 Lifestyle education regarding diet 01/04 CPT-3077F Most recent systolic blood pressure >=140 mm Hg CPT-3078F Most recent diastoli c blood pressure <80 mm Hg CPT-33343 Test 41091 Inj Order Injection(s) Ordered [id number] Medication Reconciliation SCT-6690409 Former smoker SCT-141599587 Giving encouragement to exercise SCT-156513365 Dietary management education/guidance/counseling SCT-382373535 Lifestyle education regarding diet 11/24 CPT-17838 Other Injection (IM/SC) 2021 SCT-[id number] Giving encouragement to exercise CPT-3075F Most recent systolic blood pressure 130-139 mm Hg CPT-3079F Most recent diastoli c blood pressure 80-89 mm Hg SCT-078538003 Giving encouragement to exercise CPT-3074F Most recent systolic blood pressure <130 mm Hg CPT-3078F Most recent diastoli c blood pressure <80 mm Hg CPT-1159F Medication list docu mented in medical record [facility] 51754 T2 BV Yeast Trich Culture (Affirm) 05/21 [facility] 49163 T1 G.C. Chlamydia [facility] 8472 T1 Hep C Ab [facility] 15938 T1 HIV 1/2 Ag & Ab 4 th gen -consent required [facility] 38450 T1 RPR w/ reflex to titer & confirmation [facility] 6447 T1 HSV 1/2 Ab IgG [facility] 88763 T1 HSV 1/2 Ab IgM CPT-3074F Most recent systolic blood pressure <130 mm Hg CPT-3078F Most recent diastoli c blood pressure <80 mm Hg CPT-1159F Medication list docu mented in medical record CPT-83236 Test 00095 CPT-79610 Hemoglobin 18694 CPT-31356 Urine Dip Auto 18017 SCT-[id number] Medication Reconciliation SCT-653096395 Giving encouragement to exercise [facility] 6399 T1 CBC with diff CPT-P9055GB Depo Provera 150 mg No Charge OB US GEN Ultrasound SCT-[id number] Medication Reconciliation CPT-3075F Most recent systolic blood pressure 130-139 mm Hg CPT-3079F Most recent diastoli c blood pressure 80-89 mm Hg SCT-[id number] Medication Reconciliation CPT-3077F Most recent systolic blood pressure >=140 mm Hg CPT-3079F Most recent diastoli c blood pressure 80-89 mm Hg CPT-1159F Medication list docu mented in medical record CPT-1160F Review of all medica tions by a prescribing practitioner [facility] 1715 T1 Protein:Creatinine Ratio, Urine 11/01 CPT-34373 Urine Dip Auto 04055 [facility] 45034 T1 G.C. Chlamydia [facility] 5617 T1 Group B Strep [id number] Medication Reconciliation CPT-3075F Most recent systolic blood pressure 130-139 mm Hg CPT-3079F Most recent diastoli c blood pressure 80-89 mm Hg [id number] Giving encouragement to exercise CPT-95418 Hemoglobin 62928 CPT-3074F Most recent systolic blood pressure <130 mm Hg CPT-3078F Most recent diastoli c blood pressure <80 mm Hg SCT-[id number] Medication Reconciliation CPT-3075F Most recent systolic blood pressure 130-139 mm Hg CPT-3078F Most recent diastoli c blood pressure <80 mm Hg [facility] 395 T1 Urine Culture CPT-10445 Urine Dip Auto 27469 SCT-[id number] Medication Reconciliation CPT-3074F Most recent systolic blood pressure <130 mm Hg CPT-3079F Most recent diastoli c blood pressure 80-89 mm Hg [id number] Giving encouragement to exercise [facility] 1759 T1 CBC no diff [facility] 86486 T1 GTT 3 Specimen [facility] 16644 T1 HIV 1/2 Ag & Ab 4 th gen -consent required [facility] 34600 T1 RPR w/ reflex to titer & confirmation CPT-3074F Most recent systolic blood pressure <130 mm Hg CPT-3079F Most recent diastoli c blood pressure 80-89 mm Hg [id number] Medication Reconciliation CPT-3074F Most recent systolic blood pressure <130 mm Hg CPT-3079F Most recent diastoli c blood pressure 80-89 mm Hg CPT-23461 COVID-19 Moderna CPT-0012A IZ administration - COVID-19 - Moderna 2nd dose Anatomy Scan Ultrasound Anatomy w/ TV U/S if needed 09/07/24 CPT-3075F Most recent systolic blood pressure 130-139 mm Hg CPT-3075F Most recent systolic blood pressure 130-139 mm Hg CPT-1159F Medication list docu mented in medical record [facility] 56868 T1 G.C. Chlamydia CPT-79857 Urine Dip Auto 80945 CPT-41683 Strep Screen 61750 9 CPT-3074F Most recent systolic blood pressure <130 mm Hg SCT-[id number] Medication Reconciliation CPT-04256 COVID-19 Moderna CPT-0011A IZ administration - COVID-19 - Moderna 1st dose SCT-[id number] Medication Reconciliation CPT-3074F Most recent systolic blood pressure <130 mm Hg CPT-3078F Most recent diastoli c blood pressure <80 mm Hg SCT-[id number] Medication Reconciliation CPT-3075F Most recent systolic blood pressure 130-139 mm Hg CPT-3079F Most recent diastoli c blood pressure 80-89 mm Hg OB US GEN Ultrasound CPT-42895 Cystic Fibrosis Screen 03/29 [facility]-[id number] Medication Reconciliation CPT-3074F Most recent systolic blood pressure <130 mm Hg CPT-3078F Most recent diastoli c blood pressure <80 mm Hg 38980 Flulaval Quadrivalent 05/30 CPT-17078 IMADM >18YR IM R[address] VAC/TOXOID 03/29 CPT-57874 Urine Dip Auto 35541 CPT-37878 Test 27826 CPT-1159F Medication list docu mented in medical record CPT-1160F Review of all medica tions by a prescribing practitioner [facility] 57399 T1 Urine Drug Screen w/o Confirmation 202 [facility] 8472 T1 Hep C Ab [facility] 93242 T1 HIV 1/2 Ag & Ab 4 th gen -consent required [facility] 32701 T1 Panel (Obstetric Panel) 03/29 [facility] 395 T1 Urine Culture Vital Signs Date Name Value Unit Description BMI (Body Mass Index) 38.04 kg/m2 Bod y Mass Index (Ratio) BP Diastolic 96 mm[Hg] blood pressu re, diastolic BP Systolic 159 mm[Hg] blood pressur e, systolic BSA (Body Surface Area) 1.98 b janine surface area Heart Rate 101 /min pulse rate Height 61 [in_us] height E&M Height 154.94 cm height in cent imeters E&M Weight Measured 91.18 kg weight in kilograms E&M Weight Measured 200.6 [lb_av] weight E& M Weight Measured 200.6 [lb_av] weight E& M Body Temperature 96.4 [degF] temperat ure E&M Body Temperature 35.78 Araceli temperat ure in centigrade E&M Heart Rate 78 /min pulse rate, si tting, left Immunizations Vaccine Administration Date Standard Description CVX Co de Dose PRIVATE Flulaval Quadrivalent Prefilled Syringe 0.5 ML 6 mos - 64 years PRIVATE Flulaval Quadrivalent Prefilled Syringe 0.5 ML 6 mos - 64 years 150 0.5 mL Moderna COVID-19 Vaccine Intramuscular Suspension 100 MCG/0.5ML Dose 1 Moderna COVID-19 Vaccine Intramuscular Suspension 100 MCG/0.5ML Dose 1 207 0.5 mL Moderna COVID-19 Vaccine Intramuscular Suspension 100 MCG/0.5ML Dose 1 Moderna COVID-19 Vaccine Intramuscular Suspension 100 MCG/0.5ML Dose 1 207 0.5 mL Moderna COVID-19 Vaccine Intramuscular Suspension 100 MCG/0.5ML Dose 1 Moderna COVID-19 Vaccine Intramuscular Suspension 100 MCG/0.5ML Dose 1 207 0.5 mL Moderna COVID-19 Vaccine Intramuscular Suspension 100 MCG/0.5ML Dose 2 Moderna COVID-19 Vaccine Intramuscular Suspension 100 MCG/0.5ML Dose 2 207 0.5 mL Advance Directives No information available.
--- OUTSIDE RECORDS SUMMARY | 2024-11-01 11:47 | XMS_ITS | Encounter Summary ---
Author Organization [place] [address] Care Team Providers Care Agency Cashier Name Role Phone Sukumar Garcia MD Primary Care Provider Reason for Visit * Reason Onset Date Comments Medication Refill 10/18/2024 Encounter Details Date Type Department Care Team (Late st Contact Info) Description 10/18/2024 Refill SEP [facility] [address] [place] [address] Shannan Reyes, WELDER ASSISTANT [address] [place] [address] Medication Refill Social History Tobacco Use Types Packs/Day Years [...] on file documented as of this encounter Functional Status * Is the person deaf or does he/she have serious difficulty hearing? Answer Date of Assessment Author No 04/23/2019 4:15 PM Merry Chino Daniella, ZEB * Is the person blind or does he/she have serious difficulty seeing even when wearing glasses? Answer Date of Assessment Author No 04/23/2019 4:15 PM Merry Chino, MARSHAA * Does this person have serious difficulty walking or climbing stairs? Answer Date of Assessment Author No 04/23/2019 4:15 PM Merry Chino RMA * Does this person have difficulty dressing or bathing? Answer Date of Assessment Author No 04/23/2019 4:15 PM Merry Chino, MARSHAA * Because of a physical, mental or emotional condition, does this person have difficulty doing errands alone such as visiting a doctor's office or shopping? Answer Date of Assessment Author No 04/23/2019 4:15 PM Merry Chino, ZEB documented as of this encounter Mental Status * Because of a physical, mental or emotional condition, does this person have serious difficulty concentrating, remembering or making decisions? Answer Entry Date Author No 04/23/2019 4:15 PM Merry Chino Daniella, ZEB documented in this encounter Ordered Prescriptions Prescription Sig Dispense Quantity Refills Last Filled Start Date End Date phentermine (ADIPEX-P) 37.5 mg Oral TabletIndications: Obesity, Class III, BMI 40-49.9 (morbid obesity) Take 1 Tablet by mouth every morning (before breakfast) for 30 days. 30 Tablet 10/18/2024 documented in this encounter Plan of Treatment Not on file documented as of this encounter Goals Goal Patient Goal Type Associated Problems Recent Progress Patient-Stated? Author Blood Pressure < 140/90 Blood Pressure 118/74(2024 1:16 PM EDT) No Misty Black CCMA Maintain a healthy diet, exercise regularly and maintain an ideal body weight General No Janis Ackerman CCMA Stay Tobacco Free Lifestyle Misty Fernandez CCMA documented as of this encounter Visit Diagnoses Diagnosis Obesity, Class III, BMI 40-49.9 (morbid obesity) Morbid obesity documented in this encounter Discontinued Medications Medication Sig Discontinue Reason Start Date End Da te phentermine (ADIPEX-P) 37.5 mg Oral TabletIndications:Obesit y, Class III, BMI 40-49.9 (morbid obesity) Take 1 Tablet by mouth every morning (before breakfast) for 30 days. Reorder 09/17/2024 10/18/2024 documented as of this encounter Care Teams Agency Cashier Relationship Specialty Start Date End Date Sukumar Garcia MD [address] [place], [place] [id number] PCP - General Internal Medicine 05/21/21 documented as of this encounter
--- OUTSIDE RECORDS SUMMARY | 2024-11-01 11:47 | XMS_ITS | Encounter Summary ---
Author Organization [place] [address] Care Team Providers Care Corporate Treasury Analyst Name Role Phone Sukumar Garcia MD Primary Care Provider [phone] Reason for Visit * Reason Onset Date Comments Appointment Needed 07/29/2024 depo shot Encounter Details Date Type Department Care Team (Late st Contact Info) Description 07/29/2024 Telephone SEP [place] [address] Sukumar Garcia MD [place] [facility] [place] [address] Appointment Needed (depo shot ) Social History Tobacco Use Types Packs/Day Years Used Date Smoking Tobacco: Former Cigarettes 0.3 0.2 0 04/21/2019 - 07/20/2019 Passive Smoke Exposure: Current Smokeless Tobacco: Never Alcohol Use Standard Drinks/Week Comments No 0 (1 standard drink = 0.6 oz pur e alcohol) PHQ-2 Answer Date Recorded PHQ-2 Total Score 0 11/07/2020 Sexually Active Control Partners Comments Yes Male [...] Author No 04/23/2019 4:15 PM Merry Chino, RMA * Is the person blind or does he/she have serious difficulty seeing even when wearing glasses? Answer Date of Assessment Author No 04/23/2019 4:15 PM Merry Chino, RMA * Does this person have serious difficulty walking or climbing stairs? Answer Date of Assessment Author No 04/23/2019 4:15 PM Merry Chino, RMA * Does this person have difficulty dressing or bathing? Answer Date of Assessment Author No 04/23/2019 4:15 PM Merry Chino, RMA * Because of a physical, mental or emotional condition, does this person have difficulty doing errands alone such as visiting a doctor's office or shopping? Answer Date of Assessment Author No 04/23/2019 4:15 PM Merry Chino, RMA documented as of this encounter Mental Status * Because of a physical, mental or emotional condition, does this person have serious difficulty concentrating, remembering or making decisions? Answer Entry Date Author No 04/23/2019 4:15 PM Merry Chino, RMA documented in this encounter Miscellaneous Notes * Telephone Encounter - Angela Barnett MA - 07/29/2024 2:05 PM EDT Appt scheduled. * Telephone Encounter - Yaquelin Jara, Clerical Staff - 07/29/2024 1:44 PM EDT Select the most appropriate reason for this telephone message: Appointment Needed Appointment Requested By: Patient Provider Preference: Any Available Type of Appt Needed: Nurse Visit Detailed Reason for Appt: depo shot Requested Timeframe: Tomorrow Reason Scheduling Assistance is Needed: Call Center not permitted to schedule Return Method of Communication: Phone Call Additional Information: please advise pt - thank you documented in this encounter Plan of Treatment [...] Black CCMA documented as of this encounter Visit Diagnoses Not on filedocumented in this encounter Care Teams Corporate Treasury Analyst Relationship Specialty Start Date End Date Sukumar Garcia MD [employer] [place] [phone] PCP - General Internal Medicine 05/21/21 documented as of this encounter
--- OUTSIDE RECORDS SUMMARY | 2024-11-01 11:47 | XMS_ITS | Clinical Summary ---
Author Organization [facility] Address [address] [place] [address] Phone Care Team Providers Care Material Stress Tester Name Role Phone Sukumar Garcia MD Primary Care Provider [phone] Allergies No known active allergies Medications omeprazole (PRILOSEC) 40 mg Oral Capsule, Delayed Release(E.C.)Ind ications:Gastroe sophageal reflux disease, unspecified whether esophagitis present Take 1 Capsule by mouth daily for 180 days. 90 Capsule 1 10/18/2024 04/16/20 25 Active phentermine (ADIPEX-P) 37.5 mg Oral TabletIndication s:Obesity, Class III, BMI 40-49.9 (morbid obesity) Take 1 Tablet by mouth every morning (before breakfast) for 30 days. 30 Tablet 10/18/2024 11/18/19 25 Active Hospital, Clinic, or Other Facility Administered Medication Ordered Dose Route Frequency Start Date End Date Status medroxyPROGESTERone (DEPO-PROVERA) injection 150 mgIndications:Surveillanc e of contraceptive injection 150 mg IM EVERY 90 DAYS 03/12/2024 Active Active Problems Problem Noted Date Diagnosed Date Obesity, Class III, BMI 40-49.9 (morbid obesity) 09/17/2024 Surveillance of contraceptive injection 03/12/20 24 Obesity, Class II, BMI 35-39.9 07/09/2022 Overview (07/09/2022): Need calorie deficits for weight loss Hyperlipidemia with target LDL less than 160 Overview (07/09/2022): Diet control Prediabetes 07/09/2022 Overview (07/09/2022): Lab Results Component Value Date HGBA1C 5.7 (H) 10/03/2021 HGBA1C 5.1 05/28/2021 Diet control Anxiety with depression 10/26/2019 Overview (07/09/2022): Increased depression, was on zoloft in past and worked well Assessment & Plan (07/09/2022 10:01 AM EDT): restart zoloft. Gastroesophageal reflux disease 10/02/2018 Assessment & Plan (03/04/2023 11:18 AM EST): Chronic issue that has been worsening over the last year. Reports history of hematemesis though none recently and this may be a sign of severe esophagitis or gastritis. We will plan for EGD at time of colonoscopy to rule out any structural abnormalities. History of asthma 10/20/2017 Resolved Problems Problem Noted Date Diagnosed Date Resolved Date Rectal bleeding 03/04/2023 08/21/2023 Assessment & Plan (03/04/2023 11:18 AM EST): Not entirely clear that bleeding is from rectal source. She denies vaginal bleeding. Given its association with mucus and abdominal cramping however will like to pursue colonoscopy given that this has been ongoing for 3 months at this time to rule out underlying IBD. Encounter for induction of labor 11/07/2020 02/14/2021 Decreased movement aff ecting management of in second trimester 08/05/2020 021 NST (non-stress test) reactive 08/05/2020 02/14/2021 24 weeks gestation of 08/05/2020 02/14/2021 Yeast infection of the skin 08/05/2020 02/14/2021 Tension headache 01/03/2020 08/21/2023 Assessment & Plan (11/29/2021 9:12 PM EDT): Pt reporting chronic headaches, suspect tension headaches given hx of tension headaches per chart review and HPI obtained today -keep headache journal for the next week, bring it in with you to follow up -avoid migraine triggers, handout given -increase water intake -Tylenol and ibuprofen PRN -Consider daily ppx medication at follow up based off journal results Dysmenorrhea in the adolescent 10/02/2018 08/21/2023 Overview (07/09/2022): Plan to restart depo Pes planus 09/11/2017 08/21/2023 Encounters Date Type Department Care Team Description 10/18/[address] [place] [address] Shannan Reyes APRN Medication Refill 10/18/[address] [place] [address] Sukumar Garcia MD Medication Refill 09/20/2024 Results Follow-Up [address] [place] [address] Shannan Reyes APRN URINE CULTURE (NO STAIN) 09/17/2024 1:15 PM EDT Office Visit [address] [place] [address] Shannan Reyes APRN UTI (urinary tract infection), uncomplicated (Primary Dx); Obesity, Class III, BMI 40-49.9 (morbid obesity) from Last 3 Months Immunizations Immunization Administration Dates Next Due DTaP 11/22/2004, 2,04/23/2001,01/18 HPV 9 Valent 01/03/2020,10/02/2018,09/10/2017 Hepatitis A, Ped/Adol, 2 Dose 09/10/2017 Hepatitis A, Unspecified Formulation 01/14/2006 Hepatitis B, Unspecified Formulation 02/26/2002, 04/23/2001,01/18/2001 HiB, Unspecified Formulation 02/26/2002,04/23/19 02,01/18/2001 IPV 11/22/2004,04/23/2001,01/18/2001 Influenza Vaccine Quadrivalent PF 03/29/2020 MMR 01/14/2006,11/22/2004 Meningococcal Conjugate 09/10/2017,12/26/2011 Moderna SARS-CoV-2 Booster V accine 18+ Yrs (Light Blue Border) 05/28/2021 Moderna SARS-CoV-2 Vaccine 1 2+ Yrs (Light blue border) 07/25/2020,06/27/2020 Pneumococcal Conjugate Vacci ne 13 Valent 02/26/2002,09/21/2001,07/19/2001 Tdap 06/10/2020,12/26/2011 Varicella 12/26/2011,11/22/2004 Medical History Medical History Date Comments Asthma as a child Hypertension gestational Mental disorder depression Family History Medical History Relation Name Comments Hypertension Father Asthma Mother Relation Name Status Comments Father Alive Mother Alive Sister Alive Social History Tobacco Use Types Packs/Day Years Used Date Smoking Tobacco: Former Cigarettes 0.3 0.2 0 04/21/2019 - 07/20/2019 Passive Smoke Exposure: Current Smokeless Tobacco: Never Tobacco Cessation:Counseling Given: No Alcohol Use Standard Drinks/Week Comments No 0 (1 standard drink = 0.6 oz pur e alcohol) PHQ-2 Answer Date Recorded PHQ-2 Total Score 0 09/17/2024 Sexually Active Control Partners Comments Yes Male Comments No Sex and Gender Information Value Date Recorded Sex Assigned at Not on file Legal Sex Female 5:35 AM EDT Gender Identity Not on file Sexual Orientation Not on file Obstetrics History Para Term AB IAB SAB Ectopic Multiple Livin g Live Births 1 1 1 0 1 1 Date Outcome GA Total Labor Labor/2nd/3rd Weight Sex Type Anes PTL Eliana A1 A5 Name Clin 2020 Term 37w 5d 0h 04m 0h 04m 6 lb 14.4 oz (3.13 kg) M OVD Epidur al N Livin g 9 9 JASSI OLEARY er, Yumiko Alves, DO Complications:Gestational hy pertension,Labor with prolonged second stage,Vacuum extractor delivery, delivered,Anemia Delivery Location:[facility] Last Filed Vital Signs Vital Sign Reading [...] Mass Index 43.5 09/17/2024 1:16 PM EDT Plan of Treatment Health Maintenance Due Date Last Done Comments Meningococcal B Vaccine (1 o f 2 - Standard) 2016 Chlamydia Screening 04/19/2023 04/19/2022, 02/14/2021, 10/25/2020, Additional history exists COVID-19 Vaccine (2023-2 5 season) 2023 05/28/2021, 07/25/2020, 06/27/2020 Annual Wellness Exam 08/20/2024 08/21/2023 Influenza Vaccine (#1) 2024 03/29/2020 Cervical Cancer Screening 04/19/2025 Pap Smear 04/19/2025 04/19/2022 DTaP/TDaP/Td (7 - Td or Tdap) 06/10/2030, 12/26/2011, 11/22/2004, Additional history exists Hepatitis B Vaccine Completed 02/26/2002, 04/23/2001, 01/18/2001 Pneumococcal Vaccine 0-49 Completed 2001, 09/21/2001, 07/19/2001 HPV Completed 01/03/2020, 09/19, 09/10/2017 Goals Goal Patient Goal Type Associated Problems Recent Progress Patient-Stated? Author Blood Pressure < 140/90 Blood Pressure 118/74(2024 1:16 PM EDT) No Misty Black, [place] Maintain a healthy diet, exercise regularly and maintain an ideal body weight General No Janis Ackerman CCMA Stay Tobacco Free Lifestyle No Misty Black CCMA Procedures Procedure Name Priority Date/Time Associated Diagnosis Comments URINE CULTURE (NO STAIN) Routine 09/17/2024 2:05 PM EDT UTI (urinary tract infection), uncomplicated SEP URINALYSIS POC Routine 09/17/2024 1: 29 PM EDT UTI (urinary tract infection), uncomplicated GC CHLAMYDIA THIN PREP Routine 04/19/2022 10:09 AM EST Pap smear for cervical cancer screening TUBE COATER CYTOLOGY REQUEST (PAP ONLY) Routine 04/19/2022 10:09 AM EST Pap smear for cervical cancer screening from Last 3 Months or Most Recently Relevant to Health Maintenance Results * (ABNORMAL) URINE CULTURE (NO STAIN) (09/17/2024 2:05 PM EDT) Culture Positive Growth(A) 09/20/2024 10:32 AM EDT [facility] Culture >100,000 CFU/mL Escherichia coli SUSCEPTIBI LITY RESULT 09/20/2024 10:32 AM EDT [facility] Urine STRUCTURE OF URINARY TRACT PROPER / [...] SUSCEPTIBILITY RESULT <=0.5/9.5 ug/mL: Susceptible Shannan Reyes NEONATAL INTENSIVE CARE UNIT NURSE MICROBIOLOGY - GENERAL OR DERABLES Final Result [facility] [address] [facility] , [place] [address] * (ABNORMAL) SEP URINALYSIS POC (09/17/2024 1:29 PM EDT) UA Color POC Other Color 09/17/2024 1:31 PM EDT [facility] [place] UA Appear POC Slightly Cloudy(A) Clear 09/17/2024 [...] POC Moderate(A) Negative 09/18/19 1:31 PM EDT [facility] [place] Urine STRUCTURE OF URINARY TRACT PROPER / Unknown 09/17/2024 1:29 PM EDT 09/17/2024 1:31 PM EDT Shannan Reyes NEONATAL INTENSIVE CARE UNIT NURSE POINT OF CARE TEST ORDERA BLES Final Result [facility] [place] [address] [place] [address] * TUBE COATER CYTOLOGY REQUEST (PAP ONLY) (04/19/2022 10:09 AM EST) CASE REPORT Gynecologic Cytology Report Case: [id number] Authorizing Provider: Karmen Rodriguez DO Collected: 04/19/2022 1009 Ordering Location: [facility] [place] Received: 04/19/2022 1009 First Screen: Earnest Youssef CT Specimen: LIQUID-BASED PAP - CERVICAL/ENDOCERV ICAL, Cervix, Endocervical 04/23/2022 11:32 AM EST [facility] PAP FINAL DIAGNOSIS Negative for intraepithelial lesion or malignancy 04/23/2022 11:32 AM [facility] at 1131 EST MICROSCOPIC DESCRIPTION Microscopic examination is performed and the findings corroborate the diagnosis. 04/23/2022 11:32 AM EST [facility] PAP SMEAR ADEQUACY Satisfactory for evaluation 04/23/2022 11:32 AM EST [facility] ENDOCERVICAL T-ZONE Transformation zone present 04/23/2022 11:32 AM EST [facility] EMBEDDED IMAGES 11:32 AM EST [facility] PAP DISCLAIMER The Pap Smear is a screening test that aids in the detection of cervical cancer and cancer precursors. Both false positive and false negative results can occur. The test should be used at regular intervals, and positive results should be confirmed before definitive therapy. Processed using the ThinPrep Accounts Payable Representative Automated cytology screening device (Dragonplay). 04/23/2022 11:32 AM EST [facility] Thin Prep ENDOCERVICAL STRUCTURE / Unknown 04/19/2022 10:09 AM EST 04/19/2022 10:09 AM EST us Karmen Rodriguez DO CYTOLOGY ORDERABLES Final Re sult [facility] [address] [place] [id number] * GC CHLAMYDIA THIN PREP (04/19/2022 10:09 AM EST) Chlamydia trachomatis Not Detected Not Detected 04/22/2022 1:01 PM EST [facility] Neisseria gonorrhoeae Not Detected Not Detected 04/22/2022 1:01 PM EST [facility] Thin Prep SPECIMEN FROM UTERINE CERVIX / Unknown 04/19/2022 10:09 AM EST 04/19/2022 10:09 AM EST Narrative [facility] - 04/22/2022 1:01 PM EST Testing methodology is customs guard mediated amplification (TMA) using the Aptima Combo 2 assay from [employer]. A negative result does not completely rule out a Chlamydia trachomatis or Neisseria gonorrhoeae infection due to potential inhibitors or levels present below the limit of detection by this assay. Results are dependent on proper collection and transport of specimen. This test is indicated for medical purposes only and should not be used for legal or forensic purposes. The performance characteristics of this assay were validated by the testing laboratory. This assay is FDA cleared to test the following specimens: clinician-collected endocervical, vaginal, male urethral swab specimens, rectal swabs, and throat/pharyngeal swabs; patient collected vaginal specimens within a clinic setting; Thin Prep Specimens in PreservCyt Solution; and first-stream, unpreserved male and female urine specimens. Detailed methodology is available upon request. us Karmen Rodriguez DO MICROBIOLOGY - GENERAL ORDER TERRENCE Final Result [facility] [address] [facility] , [address] [place] [address] from Last 3 Months or Most Recently Relevant to Health Maintenance Insurance [employer] [place] [id number] MDR [employer] [place] [id number] MDR [employer] [place] [id number] MDR Advance Directives For more information, please contact: [phone] * Full Code (Latest Code Status on File) Date Activated Date Inactivated Comments 11/07/2020 5:56 AM 11/10/2020 6:26 PM Care Teams Material Stress Tester Relationship Specialty Start Date End Date Sukumar Garcia MD [address] [place] [address] PCP - General Internal Medicine 05/21/21
--- OUTSIDE RECORDS SUMMARY | 2024-11-01 11:48 | XMS_ITS | Encounter Summary ---
Author Organization [place] [address] Care Team Providers Care Group Billing Coordinator Name Role Phone Sukumar Garcia MD Primary Care Provider [phone] Reason for Visit * Reason Onset Date Comments Medication Refill 10/18/2024 Encounter Details Date Type Department Care Team (Late st Contact Info) Description 10/18/2024 Refill SEP [facility] [address] [place]ukumar [place] [address] [place] [address] Medication Refill Social History Tobacco Use Types [...] [place] RMA * Does this person have serious [...] No 04/23/2019 4:15 PM Merry Chino RMA documented as of this encounter Mental Status * Because of a physical, mental or emotional condition, does this person have serious difficulty concentrating, remembering or making decisions? Answer Entry Date Author No 04/23/2019 4:15 PM Merry Chino Daniella, ZEB documented in this encounter Ordered Prescriptions Prescription Sig Dispense Quantity Refills Last Filled Start Date End Date omeprazole (PRILOSEC) 40 mg Oral Capsule, Delayed Release(E.C.)Indic ations:Gastroesoph ageal reflux disease, unspecified whether esophagitis present Take 1 Capsule by mouth daily for 180 days. 90 Capsule 1 10/18/2024 documented in this encounter Plan of [...] as of this encounter Visit Diagnoses Diagnosis Gastroesophageal reflux disease, unspecified whether esophagitis present documented in this encounter Discontinued Medications Medication Sig Discontinue Reason Start Date End Da te omeprazole (PRILOSEC) 40 mg Oral Capsule, Delayed Release(E.C.)Indications :Gastroesophageal reflux disease, unspecified whether esophagitis present Take 1 Capsule by mouth daily for 180 days. Reorder 06/04/2024 10/18/2024 documented as of this encounter Care Teams Group Billing Coordinator Relationship Specialty Start Date End Date Sukumar Garcia MD [address] [place], [place] [phone] PCP - General Internal Medicine 05/21/21 documented as of this encounter
--- OUTSIDE RECORDS SUMMARY | 2024-11-01 11:48 | XMS_ITS | Encounter Summary ---
Author Organization [place] [address] Care Team Providers Care Sign Builder Name Role Phone Sukumar Garcia MD Primary Care Provider [phone] Encounter Details Date Type Department Care Team (Late st Contact Info) Description 09/20/2024 Results Follow-Up SEP [facility] [address] [place] [id number] Shannan Reyes, [facility] NURSE [address] [place] [address] URINE CULTURE (NO STAIN) Social History Tobacco Use Types Packs/Day Years [...] 04/23/2019 4:15 PM Merry Chino RMA documented in this encounter Plan of Treatment [...] on filedocumented in this encounter Care Teams Sign Builder Relationship Specialty Start Date End Date Sukumar Garcia MD [address] [facility] [address] [place], [place] [id number] PCP - General Internal Medicine 05/21/21 documented as of this encounter
== END 2024-10-29 23:59 | disposition home or self-care (01) ==
LOC: LAB.DROPOF 11-01 11:46
PROVIDERS: PCP Nurse Practitioner Family; Visit Provider Nurse Practitioner Family
DX: N39.0 Urinary tract infection, site not specified (principal); R31.9 Hematuria, unspecified
CPT/HCPCS: 87086; 87088; 87186

== ENCOUNTER 2024-11-17 17:31 | Emergency (ER) | payer MEDICAID, SELFPAY ==
--- NOTE | 2024-11-17 17:34 | HMH.EDGENADL ---
Discharge Plan Disposition Patient Disposition: Home, Self-Care Condition: Good Prescriptions Prescriptions: New ibuprofen 800 mg tablet 800 mg PO Q8H PRN (Reason: pain) Qty: 30 0RF No Action valacyclovir 500 mg tablet 1,000 mg PO ONCE PRN (Reason: herpes) Patient Comments: TAKE 2 TABLETS BY MOUTH EVERY 24 HOURS FOR 5 DAYS. propranolol 40 mg tablet 40 mg PO BID Qty: 60 5RF levofloxacin 750 mg tablet 750 mg PO DAILY Qty: 7 0RF ondansetron 4 mg Tablet,Disintegrating 4 mg PO Q8H PRN (Reason: Nausea) Qty: 12 0RF omeprazole 40 mg capsule,delayed release(DR/EC) 40 mg PO DAILY Patient Comments: TAKE 1 CAPSULE BY MOUTH DAILY FOR 180 DAYS. Referrals Follow up/Referrals: Karmen Rodriguez DO [Primary Care Provider, Family Practice] - See instructions Activity Restrictions/Add. Instructions Additional Instructions/Restrictions: I have sent in ibuprofen to your pharmacy please make sure you take it with food. If you have any new or worsening signs or symptoms please follow-up with your PCP return to the ER as needed. Clinical Impressions Clinical Impression: Acute mesenteric adenitis Instructions Patient Instructions: DI for Urinary Tract Infection (UTI), DI for Urinary Tract Infection in Children Print Language Print Language: Argentine Discharge ED Provider: Shivam Bell General Adult HPI <SHONA Vega - Last Filed: 11/17/24 19:52> General Chief complaint: Urogenital-Female Stated complaint: Possible R Kidney Infection Time Seen by Provider: 11/17/24 17:34 History of Present Illness HPI narrative: Patient presents for evaluation of right flank pain and suprapubic pain. Patient stated that she started having acute right flank pain last night. She has continued to have the same pain today and now reports some suprapubic pain as well. She denies any painful urination hematuria chest pain shortness of breath fever chills hemoptysis hematochezia melena vomiting or diarrhea but does endorse nausea. Related Data Home Medications ?Medication ?Instructions ?Recorded ?Confirmed omeprazole 40 mg capsule,delayed 40 mg PO DAILY 10/09/23 10/29/24 release valacyclovir 500 mg tablet 1,000 mg PO ONCE PRN herpes 12/11/23 10/29/24 Previous Rx's ?Medication ?Instructions ?Recorded ondansetron 4 mg disintegrating 4 mg PO Q8H PRN Nausea #12 tabs 01/28/24 tablet propranolol 40 mg tablet 40 mg PO BID Cardia arrythmia, 06/14/24 Headache #60 tabs levofloxacin 750 mg tablet 750 mg PO DAILY #7 tabs 10/29/24 ibuprofen 800 mg tablet 800 mg PO Q8H PRN pain #30 tabs 11/17/24 Allergies Allergy/AdvReac Type Severity Reaction Status Date / Time No Known Allergies Allergy Verified 07/19/24 08:52 PFS <SHONA Vega - Last Filed: 11/17/24 19:52> [facility] Disclaimer: The information contained in this section may have been updated after the patient was seen, as this information can be updated by other users. Medical History Typical angina Dyspnea on exertion NSVT (nonsustained ventricular tachycardia) Witnessed episode of apnea Snoring Sleep-disordered breathing Elevated C-reactive protein (CRP) Elevated sed rate Palpitations SOBOE (shortness of breath on exertion) Chest pain New daily persistent headache Anemia UTI (urinary tract infection) GERD (gastroesophageal reflux disease) Depression Anxiety Migraine Asthma Hypertension Surgical History No history of previous surgery Family History Other Cancer Coronary artery disease Diabetes Heart attack Hyperlipidemia Hypertension Thyroid disorder Social History Smoking Status: Current every day smoker tobacco type: e-cigarettes years smoked: 1 alcohol intake: never substance use type: denies use current occupational status: employed Travel in the last 8 weeks?: None household members: children housing: apartment marital status: single number of children: 1 Have you lived/traveled outside US in past 30 days?: No Contact w/someone who lives/traveled outside US past 30 days?: No Exposure to someone with infectious disease in past 14 days?: No Do you have a fever (greater than 100.4 F or 38 C)?: No Have you tested positive for COVID-19?: No Exposed to someone with COVID-19 in past 14 days?: No Do you have a sore throat?: No Do you have a cough?: No Do you have any weakness?: No Do you have any diarrhea?: No Are you experiencing any unusual bleeding?: No Do you have any muscle aches/pain?: No Do you have any abdominal pain?: No Are you experiencing loss of taste or smell?: No Other Medical History Have you received the Pneumonia Vaccine: No <SHONA Vega - Last Filed: 11/17/24 19:52> ROS Obtained: Yes Systems reviewed as appropriate & no additional complaints except as documented Physical Exam <SHONA Vega - Last Filed: 11/17/24 19:52> General General appearance: alert Respiratory Respiratory exam: Present normal lung sounds bilaterally Cardiovascular Cardiovascular exam: Present regular rate Neurological Exam Neurological exam: Present alert and oriented X3 Medical Decision Making <SHONA Vega - Last Filed: 11/17/24 19:52> Medical Records Medical records reviewed: Yes I reviewed the patient's medical records. Screening: Per USPSTF and CDC recommendations, given the prevalence of disease in our region, it is our hospital?s policy to screen for HIV and viral Hepatitis for all patients aged 18 and over and those with ongoing risk factors. Johann Inquiry Pt receiving controlled substance: No Vital Signs: 11/17/24 18:00 11/17/24 18:00 11/17/24 18:07 Temperature 98.7 F 98.7 F Temperature Source Oral Oral Pulse Rate 98 H 101 H Pulse Rate [Right] 98 H Respiratory Rate 18 18 16 Blood Pressure 132/81 118/77 Blood Pressure [Left Arm] 132/81 Blood Pressure Mean [Left Arm] 98 Blood Pressure Source Blood Pressure Position 02 Sat by Pulse Oximetry 96 96 95 Oxygen Delivery Method Room Air Room Air 11/17/24 20:06 Temperature 98.5 F Temperature Source Oral Pulse Rate 79 Pulse Rate [Right] Respiratory Rate 20 Blood Pressure 115/70 Blood Pressure [Left Arm] Blood Pressure Mean [Left Arm] Blood Pressure Source Automatic Cuff Blood Pressure Position Sitting 02 Sat by Pulse Oximetry Oxygen Delivery Method Room Air Lab Data Lab results reviewed: Yes I reviewed the patient's lab results. Lab Results 11/17/24 17:37: Urine Color Yellow, Urine Appearance Clear, Urine pH 6.0, Ur Specific [place] 1.020, Urine Protein Negative, Urine Glucose (UA) Negative, Urine Ketones Negative, Urine Blood 2+ A, Urine Nitrate Negative, Urine Bilirubin Negative, Urine Urobilinogen 0.2, Ur Leukocyte Esterase Negative, Urine WBC 5-10, Ur Squamous Epith Cells 10-20, Urine Bacteria 3+, Urine HCG, Qual Negative 11/17/24 17:44: WBC 6.7, RBC 4.98, Hgb 13.7, Hct 41.1, MCV 82.5, MCH 27.5, MCHC 33.3, RDW 13.4, Plt Count 318, MPV 9.8, Neut % (Auto) 55.8, Lymph % (Auto) 27.8, [place] % (Auto) 15.5 H, Eos % (Auto) 0.4, Baso % (Auto) 0.4, Neut # (Auto) 3.7, Lymph # (Auto) 1.9, [place] # (Auto) 1.0, Eos # (Auto) 0.0, Baso # (Auto) 0.0, Sodium 139, Potassium 3.8, Chloride 105, Carbon Dioxide 27, Anion Gap 10.8, BUN 12, Creatinine 0.80, Estimated Creat Clear 82, Estimated GFR 88, Est GFR ( Amer) 107, Glucose 130 H, Calcium 10.0, Total Bilirubin 0.6, AST 36, ALT 28, Alkaline Phosphatase 85, Total Protein 8.6 H D, Albumin 4.6, Globulin 4.0 H, Albumin/Globulin Ratio 1.2, Lipase 90, Procalcitonin 0.091 11/17/24 17:44 11/17/24 17:44 Orders (Tests/Meds): ED MEDICATIONS Discontinued Medications Generic Name Dose Route Start Last Admin Trade Name Court PRN Reason Stop Dose Admin Acetaminophen 1,000 mg 11/17/24 17:45 11/17/24 18:12 Acetaminophen 500mg Tab PO 11/17/24 17:46 1,000 mg ONCE ONE Administration Sodium Chloride 1,000 mls @ 999 mls/hr 11/17/24 17:45 11/17/24 18:12 Sod Chlor 0.9% 1000ml Bag IV 11/17/24 18:45 999 mls/hr .Q1H1M ONE Administration Iopamidol 75 ml 11/17/24 18:53 11/17/24 18:54 Iopamidol-370 (76%);100ml Bottle IV 11/17/24 18:54 75 ml ONCE ONE Administration Ketorolac Tromethamine 15 mg 11/17/24 17:45 11/17/24 18:14 Ketorolac 30mg/Ml Vial IV 11/17/24 17:46 15 mg ONCE ONE Administration Ondansetron HCl 4 mg 11/17/24 17:45 11/17/24 18:13 Ondansetron 4mg/2ml Vial IV 11/17/24 17:46 4 mg ONCE ONE Administration Sodium Chloride 10 ml 11/17/24 18:53 11/17/24 18:54 Sodium Chloride 0.9% 10ml Syr (Rad Only) IV 11/17/24 18:54 10 ml ONCE ONE Administration ORDERS Category Date Time Status CT abdomen pelvis w con Stat Cat Scan 11/17/24 17:46 Completed CBC w/Auto Diff [Complete Blood Count Auto Diff] Stat Lab 11/17/24 17:44 Completed CMP [Comprehensive Metabolic Panel] Stat Lab 11/17/24 17:44 Completed Lipase Stat Lab 11/17/24 17:44 Completed Procalcitonin Stat Lab 11/17/24 17:44 Completed UA [Urinalysis and Microscopic] Stat Lab 11/17/24 17:37 Completed Urine , HCG Qual. Stat Lab 11/17/24 17:37 Completed Urine Culture Stat Micro 11/17/24 17:37 Received Medical Decision Narrative: In summary patient is a 24-year-old female who presents to the emergency department for evaluation of right flank pain and suprapubic pain 24 hours. Patient is hemodynamically stable upon arrival, afebrile. Physical exam is remarkable for suprapubic tenderness on palpation however she has no other abdominal tenderness rebound or guarding or rigidity normal bowel sounds. She has positive CVA tenderness to percussion on the right negative on the left.. Differential diagnosis includes kidney stone versus pyelonephritis versus cholecystitis versus colitis etc. Initial workup will be conducted with hematologic labs urinalysis urine CT scan abdomen pelvis. Initial interventions include crystalloid bolus Tylenol Toradol Zofran. Initial workup reviewed by me and her hematologic labs are nonactionable urinalysis shows no nitrites no protein no leukocyte Estrace on dipstick however there are numerous epithelial cells and 3+ bacteria which could be contamination and patient has no dysuria so we will defer treatment until culture results back. My informal trepidation of her abdomen scan shows mesenteric adenitis but no other acute process.. Upon repeat evaluation patient reports moderate improvement after initial intervention. Given this patient is appropriate for discharge with prescription for ibuprofen 800 and strict return precautions and close follow-up with her PCP. <Shivam Bell MD - Last Filed: 11/17/24 20:12> Vital Signs: 11/17/24 18:00 11/17/24 18:00 11/17/24 18:07 Temperature 98.7 F 98.7 F Temperature Source Oral Oral Pulse Rate 98 H 101 H Pulse Rate [Right] 98 H Respiratory Rate 18 18 16 Blood Pressure 132/81 118/77 Blood Pressure [Left Arm] 132/81 Blood Pressure Mean [Left Arm] 98 Blood Pressure Source Blood Pressure Position 02 Sat by Pulse Oximetry 96 96 95 Oxygen Delivery Method Room Air Room Air 11/17/24 20:06 Temperature 98.5 F Temperature Source Oral Pulse Rate 79 Pulse Rate [Right] Respiratory Rate 20 Blood Pressure 115/70 Blood Pressure [Left Arm] Blood Pressure Mean [Left Arm] Blood Pressure Source Automatic Cuff Blood Pressure Position Sitting 02 Sat by Pulse Oximetry Oxygen Delivery Method Room Air Lab Data Lab Results 11/17/24 17:37: Urine Color Yellow, Urine Appearance Clear, Urine pH 6.0, Ur Specific [place] 1.020, Urine Protein Negative, Urine Glucose (UA) Negative, Urine Ketones Negative, Urine Blood 2+ A, Urine Nitrate Negative, Urine Bilirubin Negative, Urine Urobilinogen 0.2, Ur Leukocyte Esterase Negative, Urine WBC 5-10, Ur Squamous Epith Cells 10-20, Urine Bacteria 3+, Urine HCG, Qual Negative 11/17/24 17:44: WBC 6.7, RBC 4.98, Hgb 13.7, Hct 41.1, MCV 82.5, MCH 27.5, MCHC 33.3, RDW 13.4, Plt Count 318, MPV 9.8, Neut % (Auto) 55.8, Lymph % (Auto) 27.8, [place] % (Auto) 15.5 H, Eos % (Auto) 0.4, Baso % (Auto) 0.4, Neut # (Auto) 3.7, Lymph # (Auto) 1.9, [place] # (Auto) 1.0, Eos # (Auto) 0.0, Baso # (Auto) 0.0, Sodium 139, Potassium 3.8, Chloride 105, Carbon Dioxide 27, Anion Gap 10.8, BUN 12, Creatinine 0.80, Estimated Creat Clear 82, Estimated GFR 88, Est GFR ( Amer) 107, Glucose 130 H, Calcium 10.0, Total Bilirubin 0.6, AST 36, ALT 28, Alkaline Phosphatase 85, Total Protein 8.6 H D, Albumin 4.6, Globulin 4.0 H, Albumin/Globulin Ratio 1.2, Lipase 90, Procalcitonin 0.091 Orders (Tests/Meds): ED MEDICATIONS Discontinued Medications Generic Name Dose Route Start Last Admin Trade Name Freq PRN Reason Stop Dose Admin Acetaminophen 1,000 mg 11/17/24 17:45 11/17/24 18:12 Acetaminophen 500mg Tab PO 11/17/24 17:46 1,000 mg ONCE ONE Administration Sodium Chloride 1,000 mls @ 999 mls/hr 11/17/24 17:45 11/17/24 18:12 Sod Chlor 0.9% 1000ml Bag IV 11/17/24 18:45 999 mls/hr .Q1H1M ONE Administration Iopamidol 75 ml 11/17/24 18:53 11/17/24 18:54 Iopamidol-370 (76%);100ml Bottle IV 11/17/24 18:54 75 ml ONCE ONE Administration Ketorolac Tromethamine 15 mg 11/17/24 17:45 11/17/24 18:14 Ketorolac 30mg/Ml Vial IV 11/17/24 17:46 15 mg ONCE ONE Administration Ondansetron HCl 4 mg 11/17/24 17:45 11/17/24 18:13 Ondansetron 4mg/2ml Vial IV 11/17/24 17:46 4 mg ONCE ONE Administration Sodium Chloride 10 ml 11/17/24 18:53 11/17/24 18:54 Sodium Chloride 0.9% 10ml Syr (Rad Only) IV 11/17/24 18:54 10 ml ONCE ONE Administration ORDERS Category Date Time Status CT abdomen pelvis w con Stat Cat Scan 11/17/24 17:46 Completed CBC w/Auto Diff [Complete Blood Count Auto Diff] Stat Lab 11/17/24 17:44 Completed CMP [Comprehensive Metabolic Panel] Stat Lab 11/17/24 17:44 Completed Lipase Stat Lab 11/17/24 17:44 Completed Procalcitonin Stat Lab 11/17/24 17:44 Completed UA [Urinalysis and Microscopic] Stat Lab 11/17/24 17:37 Completed Urine , HCG Qual. Stat Lab 11/17/24 17:37 Completed Urine Culture Stat Micro 11/17/24 17:37 Received Medical Decision Narrative: In summary patient is a 24-year-old female who presents to the emergency department for evaluation of right flank pain and suprapubic pain 24 hours. Patient is hemodynamically stable upon arrival, afebrile. Physical exam is remarkable for suprapubic tenderness on palpation however she has no other abdominal tenderness rebound or guarding or rigidity normal bowel sounds. She has positive CVA tenderness to percussion on the right negative on the left.. Differential diagnosis includes kidney stone versus pyelonephritis versus cholecystitis versus colitis etc. Initial workup will be conducted with hematologic labs urinalysis urine CT scan abdomen pelvis. Initial interventions include crystalloid bolus Tylenol Toradol Zofran. Initial workup reviewed by me and her hematologic labs are nonactionable urinalysis shows no nitrites no protein no leukocyte Estrace on dipstick however there are numerous epithelial cells and 3+ bacteria which could be contamination and patient has no dysuria so we will defer treatment until culture results back. My informal trepidation of her abdomen scan shows mesenteric adenitis but no other acute process.. Upon repeat evaluation patient reports moderate improvement after initial intervention. Given this patient is appropriate for discharge with prescription for ibuprofen 800 and strict return precautions and close follow-up with her PCP. I was consulted by the CHON, and we discussed the complexity of the problems being addressed. I approved the treatment and management plan for this patient's care in the emergency department, thus performing a substantive portion of the medical decision making. Shivam Bell MD Critical Care <SHONA Vega - Last Filed: 11/17/24 19:52> Critical Care Time Critical Care Time: No
--- NOTE | 2024-11-17 17:46 | CT_ITS ---
PROCEDURE INFORMATION: Exam: CT Abdomen And Pelvis With Contrast Exam date and time: 11/17/2024 6:52 PM Age: 24 years old Clinical indication: Abdominal pain; Additional info: Right flank pain and suprapubic pain TECHNIQUE: Imaging protocol: Computed tomography of the abdomen and pelvis with contrast. Radiation optimization: All CT scans at this facility use at least one of these dose optimization techniques: automated exposure control; mA and/or kV adjustment per patient size (includes targeted exams where dose is matched to clinical indication); or iterative reconstruction. Contrast material: ISOVUE; Contrast volume: 75 ml; Contrast route: IV; COMPARISON: CR XR CHEST 2V 12/08/2023 2:39 PM FINDINGS: Liver: Unremarkable. No mass. Gallbladder and biliary ducts: Unremarkable. No calcified stones. No ductal dilation. Pancreas: Unremarkable. No ductal dilation. Spleen: Unremarkable. No splenomegaly. Adrenal glands: Unremarkable. No mass. Kidneys and ureters: Unremarkable. No nephroureterolithiasis. No hydronephrosis. Stomach and bowel: Nonobstructive pattern. Appendix: No evidence of appendicitis. Intraperitoneal space: Unremarkable. No free air. No significant fluid collection. Vasculature: Unremarkable. No abdominal aortic aneurysm. Lymph nodes: Shotty retroperitoneal/mesenteric lymph nodes Urinary bladder: Unremarkable as visualized. Reproductive: Unremarkable as visualized. Bones/joints: Unremarkable. No acute fracture. Soft tissues: Unremarkable. IMPRESSION: Mesenteric lymphadenitis.
--- OUTSIDE RECORDS SUMMARY | 2024-11-17 17:53 | XMS_ITS | Clinical Summary ---
Author Organization [facility] Address [address] [place] [address] Phone Care Team Providers Care Primary Care Pediatrician Name Role Phone Jeromy Barone MD Primary Care Physician [phone] [ ] Conditions or Problems Problem Name Problem Code Onset Date Status Entry Date Provider Comment Standard Description Annotate Screening, cervical cancer 815896224 (SNOMED CT) 05/17 Active 05/17 Tyrone Dugan APRN Screening for malignant neoplasm of cervix Body mass index (BMI) 38.0-38.9; adult Z68.38 (ICD-10-CM ) 05/17 Active 05/17 Tyrone Karenl NUCLEAR SCIENTIST Body mass index [BMI] 38.0-38.9, adult Body mass index (BMI) 34.0-34.9; adult Z68.34 (ICD-10-CM ) 01/04 Correction 01/04 Tyrone Dugan NUCLEAR SCIENTIST Body mass index [BMI] 34.0-34.9, adult Irregular menses 45306023 (SNOMED CT) 05/17 Active 05/17 Tyrone Howdeshell NUCLEAR SCIENTIST Irregular periods Body mass index (BMI) 34.0-34.9; adult Z68.34 (ICD-10-CM ) 01/04 Removed 01/04 Diamond Mann NUCLEAR SCIENTIST BCADM Body mass index [BMI] 34.0-34.9, adult Body mass index (BMI) 35.0-35.9; adult Z68.35 (ICD-10-CM ) 11/24 Correction 11/24 Diamond Mann NUCLEAR SCIENTIST BCADM Body mass index [BMI] 35.0-35.9, adult Nausea 711553620 (SNOMED CT) 01/04 Active 01/04 Diamond Mackenzie GUZMANN BCADM Nausea GERD-esopha geal reflux 852851718 (SNOMED CT) 01/04 Active 01/04 Diamond Mackenzie [...] Body mass index [BMI] 32.0-32.9, adult HSV 71197557 (SNOMED CT) 05/29 Active 05/29 Tyrone Dugan APRN Herpesvirus infection 1 & 2 Std screening 249325477 (SNOMED CT) 05/21 Active 05/21 Tyrone Dugan [...] for surveillance of contraceptives , unspecified Anemia 510644012 (SNOMED CT) 01/05 Active 01/05 Sandie Rodriguez MD Anemia Supervision , normal first 566841156 (SNOMED CT) 05/30 Resolved 05/30 Sandie Rodriguez MD Primigravida Encounter for screening for malformatio ns 397349428 (SNOMED CT) 06/27 Resolved 06/27 Sandie Rodriguez MD screening for malformation Uterine size-date discrepancy , unspecified trimester 480452651 (SNOMED CT) 10/18 Resolved 10/18 Sandie Rodriguez MD Uterine size for dates discrepancy care 783340501 (SNOMED CT) 01/05 Active 01/05 Sandie Rodriguez [...] for age Gestational hypertensio n, third trimester 97314184 (SNOMED CT) 11/06 Inactive 11/06 Sandie Rodriguez MD -alexandra lester hypertension 36 weeks gestation of 00077941 (SNOMED CT) 11/01 Resolved 11/02 Sandie Rodriguez MD Gestation period, 36 weeks 37 weeks gestation of Z3A.37 (ICD-10-CM ) 11/06 Inactive 11/06 Sandie Rodriguez MD 37 weeks gestation of 36 weeks gestation of 64973051 (SNOMED CT) 11/01 Removed 11/02 Sandie Rodriguez [...] age Uterine size-date discrepancy , unspecified trimester 587984711 (SNOMED CT) 10/18 Removed 10/18 Sandie Rodriguez MD Uterine size for dates discrepancy 34 weeks gestation of 61843586 (SNOMED CT) 10/18 Inactive 10/18 Sandie Rodriguez [...] percentile for age 26 weeks gestation of 07041628 (SNOMED CT) 08/23 Inactive 08/24 Sandie Rodriguez [...] age Z68.51 (ICD-10-CM ) 06/27 Removed 06/27 Sandie Rodriguez MD Body mass index [BMI] pediatric, less than 5th percentile for age 18 weeks gestation of 08059395 (SNOMED CT) 06/27 Inactive 06/27 Sandie Rodriguez MD Gestation period, 18 weeks Body mass index (BMI) pediatric; less than 5th percentile for age Z68.51 (ICD-10-CM ) 05/24 Correction 05/24 Sandie Rodriguez MD Body mass index [BMI] pediatric, less than 5th percentile for age Encounter for screening for malformatio ns 798860530 (SNOMED CT) 06/27 Removed 06/27 Sandie Rodriguez [...] less than 5th percentile for age Heartburn 27208616 (SNOMED CT) 05/24 Active 05/24 Sandie Rodriguez MD Heartburn 13 weeks gestation of 03776567 (SNOMED CT) 05/24 Inactive 05/24 Sandie Rodriguez [...] percentile for age 9 weeks gestation of 294321 (SNOMED CT) 04/26 Inactive 04/26 Sandie Rodriguez MD Gestation period, 9 weeks Body mass index (BMI) pediatric; less than 5th percentile for age Z68.51 (ICD-10-CM ) 05/30 Removed 05/30 Sandie Rodriguez MD Body mass index [BMI] pediatric, less than 5th percentile for age Less than 8 weeks gestation of 46105933 (SNOMED CT) 05/30 Inactive 05/30 Sandie Rodriguez MD First trimester Counseling for nutrition Z71.3 (ICD-10-CM ) 05/30 Inactive 05/30 Sandie Rodriguez MD Dietary counseling and surveillance Irregular menses 31484092 (SNOMED CT) 05/30 Active 05/30 Sandie Rodriguez MD Irregular periods Supervision , normal first 319831261 (SNOMED CT) 05/30 Removed 05/30 Sandie Rodriguez MD Primigravida Medications Medication Instructions Start Date Stop Date Generic Name [facility] Provider DEPO-PROVERA 150 MG/ML ALMA Inject 1 ml intramuscularly every three months to be given in doctor's office only 01/05 medroxyprogester one [id number] Sandie Rodriguez MD MEDROXYPROGESTERONE ACETATE 150 MG/ML ALMA INJECT 1 ML INTRAMUSCULARLY EVERY THREE MONTHS TO BE GIVEN IN DOCTOR'S OFFICE ONLY 01/07 medroxyprogester one 65332267535 Sandie Rodriguez MD VALTREX 500 MG TABS Take 1 tablet by mouth twice a day 05/31 valacyclovir 13371964278 Tyrone Dugan APRN FERROUS SULFATE 325 (65 Fe) MG TABS Take 1 tablet by mouth twice a day 01/05 ferrous sulfate 82031990347 Sandie Rodriguez MD DEPO-PROVERA 150 MG/ML ALMA Inject 1 ml intramuscularly every three months to be given in doctor's office only 01/05 medroxyprogester one 05479660399 Sandie Rodriguez MD PLUS 27-1 MG TABS Take 1 tablet by mouth once a day 05/30 pnv,calcium 50-zffm-qnyxd acid 08368509155 Sandie Rodriguez MD OMEPRAZOLE 20 MG CPDR Take 1 capsule by mouth once a day 06/07 omeprazole 70540152543 Sandie Rodriguez MD FAMOTIDINE 20 MG TABS Take 1 tablet by mouth once a day 07/04 famotidine 36349604819 Sandie Rodriguez MD OMEPRAZOLE 20 MG TBEC Take 1 tablet by mouth once a day 09/06 omeprazole 83054829975 Sandie Rodriguez MD FAMOTIDINE 20 MG TABS TAKE 1 TABLET BY MOUTH 1 TIME A DAY 07/04 FAMOTIDINE 43145867589 Sandie Rodriguez MD OMEPRAZOLE 20 MG CPDR TAKE 1 CAPSULE BY MOUTH ONCE A DAY 06/07 OMEPRAZOLE 73780755530 Sandie Rodriguez MD FAMOTIDINE 20 MG TABS TAKE 1 TABLET BY MOUTH 1 TIME A DAY 05/24 FAMOTIDINE 32093523759 Sandie Rodriguez MD FAMOTIDINE 20 MG TABS TAKE 1 TABLET BY MOUTH 1 TIME A DAY 05/24 FAMOTIDINE 32774557905 Sandie Rodriguez MD PLUS 27-1 MG TABS TAKE 1 TABLET BY MOUTH ONCE A DAY OR COVERED EQUIVALENT 05/30 VIT-FE FUMARATE-FA 51977871902 Sandie Rodriguez MD Medications Administered No information [...] E N Hepatitis B virus surface Ag [Presence] in Serum by Radioimmunoassay (SYED) ABO/RH RH(D) POSITIVE blood type with RH [...] N Creatinine [Mass/volume] in Urine Office Visit: [facility] SPEC GR URIN 1.015 Specific gravity of [...] Serum or Plasma - mg/dL Office Visit: [facility] visit LABS ORDERED Test 53973 Laboratory tests ordered PREG TST URN negative [...] in Blood ABS NEUTROPH 6082 CELLS/UL 10*3/uL 9632-4048 N Neutrophils [#/volume] in Blood MPV 10.1 [...] Plan of Care Type Date Detail Appointment 01:40 PM Janis alejandro Hyg, [address] [place], [address], Referral [facility] G[facility]enterology [facility], [address] [facility] [address], [place], [address] Pending order Test 8 1025 Pending order [...] order Test 8 1025 Pending order Hemoglobin 38077 Pending order T1 CBC with diff Pending order Depo Provera 150 mg No Charge Pending order Ultrasound Pending Order exclud ed from report: Pending order Urine Dip Auto 8 1003 Pending order Hemoglobin 19935 Pending order T1 Urine Culture Pending order Urine Dip Auto 8 1003 Pending order COVID-19 Moderna Pending order IZ administratio n - COVID-19 - Moderna 2nd dose Pending order Urine Dip Auto 8 1003 Pending order Strep Screen 878 80 Pending order Strep Screen 878 80 Pending Order exclud ed from report: Pending order Urine Dip Auto 8 1003 Pending order Test 8 1025 Patient education Medications Patient education Medications Patient education Medications Procedures Code Procedure Name Date Entry Date [facility]-[id number] Giving encouragement to exercise SCT-3453344 Former smoker CPT-3077F Most recent systolic blood pressure >=140 mm Hg CPT-90714 Test 19857 [facility] 746 T1 Prolactin [facility] 66054 T1 TSH reflex to free T4 06/19/26 [facility] 6399 T1 CBC with diff [facility] 496 T1 HGBA1c [facility] 12838 T1 ThinPrep Pap w re flex HR HPV/GC/Chlamydia mRNA E6/E7 CPT-3075F Most recent systolic blood pressure 130-1 39 mm Hg CPT-3078F Most recent diastolic blood pressure <80 mm Hg CPT-1159F Medication list documented in medical rec ord [facility] 6399 T1 CBC with diff [facility] 54628 T1 BMP [facility] 75058 T1 Hepatic Function Panel 20 11/01/16 [facility] 496 T1 HGBA1c [facility] 65586 T1 Lipid Panel [facility] 52126 T1 TSH reflex to free T4 05/30/15 [facility] 83316 T1 HIV 1/2 Ag & Ab 4th gen -consent requi red [facility] 63182 T2 Carbam Free (Tegretol) 20 11/01/16 SCT-[id number] Medication Reconciliation SCT-599746948 Giving encouragement to exercise SCT-890934246 Dietary management education/guidance/counseling SCT-684603106 Lifestyle education regarding diet 01/04 CPT-3077F Most recent systolic blood pressure >=140 mm Hg CPT-3078F Most recent diastoli c blood pressure <80 mm Hg CPT-63417 Test 65257 Inj Order Injection(s) Ordered SCT-102865277632299 Medication Reconciliation SCT-8054328 Former smoker SCT-857185959 Giving encouragement to exercise SCT-956173075 Dietary management education/guidance/counseling SCT-873873017 Lifestyle education regarding diet 11/24 CPT-88557 Other Injection (IM/SC) 2021 SCT-672890666 Giving encouragement to exercise CPT-3075F Most recent systolic blood pressure 130-139 mm Hg CPT-3079F Most recent diastoli c blood pressure 80-89 mm Hg SCT-368948467 Giving encouragement to exercise CPT-3074F Most recent systolic blood pressure <130 mm Hg CPT-3078F Most recent diastoli c blood pressure <80 mm Hg CPT-1159F Medication list docu mented in medical record [facility] 22894 T2 BV Yeast Trich Culture (Affirm) 05/21 [facility] 61302 T1 G.C. Chlamydia [facility] 8472 T1 Hep C Ab [facility] 18152 T1 HIV 1/2 Ag & Ab 4 th gen -consent required [facility] 62860 T1 RPR w/ reflex to titer & confirmation [facility] 6447 T1 HSV 1/2 Ab IgG [facility] 12512 T1 HSV 1/2 Ab IgM CPT-3074F Most recent systolic blood pressure <130 mm Hg CPT-3078F Most recent diastoli c blood pressure <80 mm Hg CPT-1159F Medication list docu mented in medical record CPT-69217 Test 35367 CPT-14444 Hemoglobin 71114 CPT-26188 Urine Dip Auto 29809 SCT-[id number] Medication Reconciliation SCT-745193525 Giving encouragement to exercise [facility] 6399 T1 CBC with diff CPT-U5043OW Depo Provera 150 mg No Charge OB US GEN Ultrasound SCT-109929669031148 Medication Reconciliation CPT-3075F Most recent systolic blood pressure 130-139 mm Hg CPT-3079F Most recent diastoli c blood pressure 80-89 mm Hg SCT-810278408364037 Medication Reconciliation CPT-3077F Most recent systolic blood pressure >=140 mm Hg CPT-3079F Most recent diastoli c blood pressure 80-89 mm Hg CPT-1159F Medication list docu mented in medical record CPT-1160F Review of all medica tions by a prescribing practitioner [facility] 1715 T1 Protein:Creatinine Ratio, Urine 11/01 CPT-48218 Urine Dip Auto 22238 [facility] 50793 T1 G.C. Chlamydia [facility] 5617 T1 Group B Strep SCT-096583794299994 Medication Reconciliation CPT-3075F Most recent systolic blood pressure 130-139 mm Hg CPT-3079F Most recent diastoli c blood pressure 80-89 mm Hg SCT-771950493 Giving encouragement to exercise CPT-96118 Hemoglobin 03895 CPT-3074F Most recent systolic blood pressure <130 mm Hg CPT-3078F Most recent diastoli c blood pressure <80 mm Hg SCT-487429375780711 Medication Reconciliation CPT-3075F Most recent systolic blood pressure 130-139 mm Hg CPT-3078F Most recent diastoli c blood pressure <80 mm Hg [facility] 395 T1 Urine Culture CPT-21944 Urine Dip Auto 10648 SCT-930950630299019 Medication Reconciliation CPT-3074F Most recent systolic blood pressure <130 mm Hg CPT-3079F Most recent diastoli c blood pressure 80-89 mm Hg SCT-428171866 Giving encouragement to exercise [facility] 1759 T1 CBC no diff [facility] 94786 T1 GTT 3 Specimen [facility] 70740 T1 HIV 1/2 Ag & Ab 4 th gen -consent required [facility] 04930 T1 RPR w/ reflex to titer & confirmation CPT-3074F Most recent systolic blood pressure <130 mm Hg CPT-3079F Most recent diastoli c blood pressure 80-89 mm Hg SCT-586925028051860 Medication Reconciliation CPT-3074F Most recent systolic blood pressure <130 mm Hg CPT-3079F Most recent diastoli c blood pressure 80-89 mm Hg CPT-31648 COVID-19 Moderna CPT-0012A IZ administration - COVID-19 - Moderna 2nd dose Anatomy Scan Ultrasound Anatomy w/ TV U/S if needed 09/07/24 CPT-3075F Most recent systolic blood pressure 130-139 mm Hg CPT-3075F Most recent systolic blood pressure 130-139 mm Hg CPT-1159F Medication list docu mented in medical record [facility] 52441 T1 G.C. Chlamydia CPT-96347 Urine Dip Auto 29276 CPT-07986 Strep Screen 66347 9 CPT-3074F Most recent systolic blood pressure <130 mm Hg SCT-627055691265404 Medication Reconciliation CPT-15317 COVID-19 Moderna CPT-0011A IZ administration - COVID-19 - Moderna 1st dose SCT-332615781706347 Medication Reconciliation CPT-3074F Most recent systolic blood pressure <130 mm Hg CPT-3078F Most recent diastoli c blood pressure <80 mm Hg SCT-052817768298257 Medication Reconciliation CPT-3075F Most recent systolic blood pressure 130-139 mm Hg CPT-3079F Most recent diastoli c blood pressure 80-89 mm Hg OB US GEN Ultrasound CPT-56091 Cystic Fibrosis Screen 03/29 [facility]-[id number] Medication Reconciliation CPT-3074F Most recent systolic blood pressure <130 mm Hg CPT-3078F Most recent diastoli c blood pressure <80 mm Hg 31052 Flulaval Quadrivalent 05/30 CPT-65820 IMADM >18YR IM [address] VAC/TOXOID 03/29 CPT-34330 Urine Dip Auto 55757 CPT-81205 Test 03774 CPT-1159F Medication list docu mented in medical record CPT-1160F Review of all medica tions by a prescribing practitioner [facility] 53060 T1 Urine Drug Screen w/o Confirmation 202 [facility] 8472 T1 Hep C Ab [facility] 84011 T1 HIV 1/2 Ag & Ab 4 th gen -consent required [facility] 67599 T1 Panel (Obstetric Panel) 03/29 [facility] 395 [...]
--- OUTSIDE RECORDS SUMMARY | 2024-11-17 17:54 | XMS_ITS | Encounter Summary ---
Author Organization [place] [address] Care Team Providers Care Punchboard Stuffer Name Role Phone Sukumar Garcia MD Primary Care Provider [phone] Reason for Visit * Reason Onset Date Comments Medication Refill 10/18/2024 Encounter Details Date Type Department Care Team (Late st Contact Info) Description 10/18/2024 Refill [facility] [address] [place] [address] Shannan Reyes, STATION WORKER [address] [place] [address] Medication Refill Social History Tobacco Use Types [...] documented as of this encounter Care Teams Punchboard Stuffer Relationship Specialty Start Date End Date Sukumar Garcia MD [address] [place], [place] [address] PCP - General Internal Medicine 05/21/21 documented as of this encounter
--- OUTSIDE RECORDS SUMMARY | 2024-11-17 17:54 | XMS_ITS | Encounter Summary ---
Author Organization [place] [address] Care Team Providers Care Superintendent Seed Mill Name Role Phone Sukumar Garcia MD Primary Care Provider [phone] Reason for Visit * Reason Onset Date Comments Medication Refill 10/18/2024 Encounter Details Date Type Department Care Team (Late st Contact Info) Description 10/18/2024 Refill SEP [facility] [place] [address] [place] [place] [address] [place] [address] Medication Refill Social History Tobacco Use [...] documented as of this encounter Care Teams Superintendent Seed Mill Relationship Specialty Start Date End Date Sukumar Garcia MD [address] [place], [place] [id number] PCP - General Internal Medicine 05/21/21 documented as of this encounter
--- OUTSIDE RECORDS SUMMARY | 2024-11-17 17:54 | XMS_ITS | Clinical Summary ---
Author Organization [facility] Address [address] [place] [address] Phone Care Team Providers Care Site Project Manager Name Role Phone Sukumar Garcia MD Primary Care Provider [phone] Allergies No known active allergies Medications omeprazole [...] Type Department Care Team Description 10/18/[address] [place] [address] Shannan Reyes APRN Medication Refill 10/18/[address] [place] [address] Sukumar Garcia MD Medication Refill 09/20/2024 Results Follow-Up [address] [place] [address] Shannan Reyes APRN URINE CULTURE (NO STAIN) 09/17/2024 1:15 PM EDT Office Visit [address] [place] [address] Shannan Reyes APRN UTI (urinary tract infection), [...] prolonged second stage,Vacuum extractor delivery, delivered,Anemia Delivery Location:[facility] Last Filed Vital Signs [...] EST Pap smear for cervical cancer screening NEWSPAPER STUFFER CYTOLOGY REQUEST (PAP ONLY) Routine 04/19/2022 10:09 AM EST Pap smear for cervical cancer screening from Last 3 Months or Most Recently Relevant to Health Maintenance Results * (ABNORMAL) URINE CULTURE (NO STAIN) (09/17/2024 2:05 PM EDT) Culture Positive Growth(A) 09/20/2024 10:32 AM EDT PREFERRED Tagged Culture >100,000 CFU/mL Escherichia coli SUSCEPTIBI LITY RESULT 09/20/2024 10:32 AM EDT [employer] Urine STRUCTURE OF URINARY TRACT PROPER / [...] SUSCEPTIBILITY RESULT <=0.5/9.5 ug/mL: Susceptible Shannan Reyes FINANCIAL COMPLIANCE EXAMINER MICROBIOLOGY - GENERAL OR DERABLES Final Result [facility] [address] [facility] , [place] [address] * (ABNORMAL) SEP URINALYSIS POC (09/17/2024 1:29 [...] EDT 09/17/2024 1:31 PM EDT Shannan Reyes FINANCIAL COMPLIANCE EXAMINER POINT OF CARE TEST ORDERA BLES Final Result [facility] [place] [address] [place] [address] * NEWSPAPER STUFFER CYTOLOGY REQUEST (PAP ONLY) (04/19/2022 10:09 AM EST) CASE REPORT Gynecologic Cytology Report Case: [id number] Authorizing Provider: Karmen Rodriguez DO Collected: 04/19/2022 1009 Ordering Location: [facility] [place] Received: 04/19/2022 1009 First Screen: Earnest Youssef CT Specimen: LIQUID-BASED PAP - CERVICAL/ENDOCERV ICAL, Cervix, Endocervical 04/23/2022 11:32 AM EST [facility] PAP FINAL DIAGNOSIS Negative for intraepithelial lesion or malignancy 04/23/2022 11:[address] [facility] at 1131 EST MICROSCOPIC DESCRIPTION Microscopic examination is performed and the findings corroborate the diagnosis. 04/23/2022 11:32 AM EST [facility] PAP SMEAR ADEQUACY Satisfactory for evaluation 04/23/2022 11:32 AM EST [facility] ENDOCERVICAL T-ZONE Transformation zone present 04/23/2022 11:32 AM EST [facility] EMBEDDED IMAGES 11:32 AM EST [facility] PAP DISCLAIMER The Pap Smear is a screening test that aids in the detection of cervical cancer and cancer precursors. Both false positive and false negative results can occur. The test should be used at regular intervals, and positive results should be confirmed before definitive therapy. Processed using the [employer] Warfare Technician Automated cytology screening device ([employer]). 04/23/2022 11:32 AM EST [facility] Thin Prep ENDOCERVICAL STRUCTURE / Unknown 04/19/2022 10:09 AM EST 04/19/2022 10:09 AM EST us Karmen Rodriguez DO CYTOLOGY ORDERABLES Final Re sult [facility] [address] [id number] * GC CHLAMYDIA THIN PREP (04/19/2022 10:09 AM EST) Chlamydia trachomatis Not Detected Not Detected 04/22/2022 1:01 PM EST PREFERRED Tagged Neisseria gonorrhoeae Not Detected Not Detected 04/22/2022 1:01 PM EST [facility] Tagged Thin Prep SPECIMEN FROM UTERINE CERVIX / Unknown 04/19/2022 10:09 AM EST 04/19/2022 10:09 AM EST Narrative PREFERRED Tagged - 04/22/2022 1:01 PM EST Testing methodology is electrician elevator maintenance mediated amplification (TMA) using the Aptima Combo 2 assay from [employer]. A negative result does not completely rule [...] ORDER TERRENCE Final Result [facility] [address] [facility] , [place] [address] from Last 3 Months or Most Recently Relevant to Health Maintenance Insurance [employer] [place] [id number] MDR [employer] [place] [id number] [place] [employer] [place] [id number] MDR Advance Directives For more information, please contact: [phone] * Full Code (Latest Code Status on File) Date Activated Date Inactivated Comments 11/07/2020 5:56 AM 11/10/2020 6:26 PM Care Teams Site Project Manager Relationship Specialty Start Date End Date Sukumar Garcia MD [address] [place] [address] PCP - General Internal Medicine 05/21/21
--- OUTSIDE RECORDS SUMMARY | 2024-11-17 17:54 | XMS_ITS | Encounter Summary ---
Author Organization [place] [address] Care Team Providers Care Staff Midwife Name Role Phone Sukumar Garcia MD Primary Care Provider [phone] Encounter Details Date Type Department Care Team (Late st Contact Info) Description 09/20/2024 Results Follow-Up [facility] [address] [place] [id number] Shannan Reyes, HOME HEALTH ATTENDANT [address] [place] [address] URINE CULTURE (NO STAIN) Social History [...] on filedocumented in this encounter Care Teams Staff Midwife Relationship Specialty Start Date End Date Sukumar Garcia MD [address] [facility] [address] [place], [place] [address] PCP - General Internal Medicine 05/21/21 documented as of this encounter
[2024-11-17 17:55] LABS: Microscopic, Urine URINE MICROSCOPIC (MICROSCOPIC)
[2024-11-17 17:58] LABS: Hematocrit 41.1 % (37.0-47.0); Hemoglobin 13.7 g/dL (12.2-16.2); Immature Granulocytes % 0.1 %; Mean Corpuscular HGB Conc 33.3 g/dL (31.8-35.4); Mean Corpuscular Hemoglobin 27.5 pg (27.0-31.2); Mean Corpuscular Volume 82.5 fl (81-99); Nucleated Red Blood Cells % 0 %; Platelet Count 318 K/mm3 (142-424); Red Blood Count 4.98 M/mm3 (4.20-5.40); Red Cell Distribution Width-SD 40.0 fL; White Blood Count 6.7 K/mm3 (4.8-10.8)
[2024-11-17 18:00] VITALS: BP 132/81; PULSE 98; RESP 18; TEMP 37.1; O2SAT 96; BMI 42.1
[2024-11-17 18:00] LABS: Bilirubin,Urine Negative (Negative); Color,Urine YELLOW (Yellow); Glucose,Urine (UA) Negative (Negative); Ketones,Urine Negative (Negative); Leukocyte Esterase,Urine Negative (Negative); PH,Urine 6.0 (5.0-8.5); Protein,Urine Negative (Negative); Specific Gravity, Urine 1.020 (1.005-1.030); Urobilinogen,Urine 0.2 EU/dl (0.2)
[2024-11-17 18:07] VITALS: BP 118/77; PULSE 101; RESP 16; O2SAT 95
[2024-11-17 18:08] LABS: Urine Pregnancy, HCG Qual. Negative (Negative)
[2024-11-17] MEDS: ACETAMINOPHEN 500MG TAB 1000 MG PO (18:12)
[2024-11-17] MEDS: 0.9 % SODIUM CHLORIDE 1000ML 1,000 ML 999 ML IV (18:12)
[2024-11-17] MEDS: ONDANSETRON 4MG/2ML VIAL 4 MG IV (18:13)
[2024-11-17] MEDS: KETOROLAC 30MG/ML VIAL 15 MG IV (18:14)
[2024-11-17 18:17] LABS: Bacteria,Urine 3+ /lpf
[2024-11-17 18:30] LABS: Alanine Aminotransferase 28 U/L (12-78); Albumin Level 4.6 g/dl (3.5-5.0); Albumin/Globulin Ratio 1.2 (1.1-1.8); Alkaline Phosphatase 85 U/L (38-126); Anion Gap 10.8 mEq/L (5-15); Aspartate Amino Transferase 36 U/L (14-36); Bilirubin,Total 0.6 mg/dl (0.2-1.3); Blood Urea Nitrogen 12 mg/dl (7-17); Calcium 10.0 mg/dl (8.4-10.2); Carbon Dioxide 27 mmol/L (22.0-30.0); Chloride 105 mmol/L (98-107); Creatinine Clearance Estimated 82 mL/min (50-200); Creatinine,Serum 0.80 mg/dl (0.52-1.04); Estimated Glomerular Filt Rate 88 ml/min (>60); GFR (African American) 107 ML/MIN (>60); Globulin 4.0 g/dL (1.3-3.2); Glucose 130 mg/dl (74-100); Lipase 90 U/L (23-300); Potassium 3.8 mmoL/L (3.5-5.1); Sodium 139 mmol/L (136-145); Total Protein,Serum 8.6 g/dl (6.3-8.2)
[2024-11-17 18:47] LABS: Procalcitonin 0.091 ng/mL (0.0-2.0)
[2024-11-17] MEDS: SODIUM CHLORIDE 0.9% 10ML SYR (RAD ONLY) 10 ML IV (18:54)
[2024-11-17] MEDS: IOPAMIDOL-370 (76%);100ML BOTTLE 75 ML IV (18:54)
[2024-11-17 19:00] VITALS: BP 125/78; PULSE 91; O2SAT 96
--- NOTE | 2024-11-17 19:22 | PC.NURSE ---
Report recieved from Coty RN Pt awake alert and oriented Skin pink warm and dry Speech clear and appropriate. IV site infusing without difficulty.
[2024-11-17 19:31] VITALS: BP 113/72; PULSE 78; O2SAT 97
[2024-11-17 20:00] VITALS: BP 115/70; PULSE 71; O2SAT 97
[2024-11-17 20:06] VITALS: BP 115/70; PULSE 79; RESP 20; TEMP 36.9; O2SAT 96
--- NOTE | 2024-11-17 20:13 | PC.NURSE ---
pT TO ct scan via stretcher
== END 2024-11-17 20:14 | disposition home or self-care (01) ==
PROVIDERS: Physician Assistant; Emergency Provider Emergency Medicine; PCP Student in an Organized Health Care Education/Training Program
DX: I88.0 Nonspecific mesenteric lymphadenitis (principal); N10 Acute pyelonephritis; F32.A Depression, unspecified; F17.210 Nicotine dependence, cigarettes, uncomplicated
CPT/HCPCS: 74177; 80053; 81001; 81025; 83690; 84145; 85025; 87086; 96361; 96374; 96375; 99285; J1885; J2405; J7030; Q9967

== ENCOUNTER 2025-03-18 15:10 | Emergency (ER) | payer MEDICAID, SELFPAY ==
--- OUTSIDE RECORDS SUMMARY | 2025-02-21 10:45 | XMS_ITS | Encounter Summary ---
Author Organization [place] [address] Care Team Providers Care Instructor Technical Training Name Role Phone Sukumar Garcia MD Primary Care Provider Reason for Visit * Reason Comments Amenorrhea 2 positive preg test , needs lab conformation Encounter Details Date Type Department Care Team (Late st Contact Info) Description 02/21/2025 10:45 AM EST Office Visit [facility] [address] [place] [address] Shannan Reyes G, [employer] [address] [place] [address] Amenorrhea (Primary Dx); History of gestational hypertension Social History Tobacco Use Types Packs/Day Years Used Date Smoking Tobacco: Former Cigarettes 0.3 0.2 0 04/21/2019 - 07/20/2019 Passive Smoke Exposure: Current Smokeless Tobacco: Never Tobacco Cessation:Counseling Given: Not Answered Alcohol Use Standard Drinks/Week Comments No 0 [...] Sign Reading Time Taken Comments Blood Pressure 134/81 02/21/2025 10:44 AM EST Pulse 87 02/21/2025 10:44 AM EST Temperature 36.8 C (98.2 F) 02/21/2025 10:44 AM EST Respiratory Rate 20 02/21/2025 10:44 AM EST Oxygen Saturation 97% 02/21/2025 10:44 AM EST Inhaled Oxygen Concentration - - Weight 99.8 kg (220 lb) 02/21/2025 10:44 AM EST Height 154.9 cm (5' 1 ) 02/21/2025 10:44 AM EST Body Mass Index 41.57 02/21/2025 10:44 AM EST documented in this encounter Functional Status * Is the person deaf or does he/she have serious difficulty hearing? Answer Date of Assessment Author No 04/23/2019 4:15 PM EST Merry Romero RMA * Is the person blind or does he/she have serious difficulty seeing even when wearing glasses? Answer Date of Assessment Author No 04/23/2019 4:15 PM EST Merry Romero RMA * Does this person have serious difficulty walking or climbing stairs? Answer Date of Assessment Author No 04/23/2019 4:15 PM EST Merry Romero RMA * Does this person have difficulty [...] Entry Date Author No 04/23/2019 4:15 PM eMrry Chino RMA documented in this encounter Progress Notes * Shannan Reyes APRN - 02/21/2025 10:45 AM EST Assessment & Plan 1. : - Reports no menses since 01/15/2025 and has had 2 positive urine tests at home. - A quantitative test will be conducted today to confirm the . - Advised to abstain from alcohol, drugs, and tobacco during this period. - Upon confirmation of , a prescription for vitamins with iron will be sent to the pharmacy. She will be referred to Dr. Karmen Jaime for care and follow-up visits. Follow-up: The patient will follow up in 1 month. Dx/Orders: Diagnoses and all orders for this visit: Amenorrhea - HUMAN CHORIONIC GONADOTROPIN QUANTITATIVE; Future History of gestational hypertension Return in about 1 month (around 03/23/2025) for . Teodora Oleary is a 24 y.o. female Chief Complaint Patient presents with Amenorrhea 2 positive preg test, needs lab conformation History of Present Illness The patient is a 24-year-old female who presents today for confirmation of . She reports no menses and had two positive urine tests at home. Her last menstrual period started on 01/15/2025. 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 She recalls experiencing hypertension towards the end of her previous , necessitating induction and a blood transfusion due to excessive blood loss. She also notes that her current weight is significantly higher than it was during her previous . Her last Depo-Provera injection was administered in 02/2024. Alcohol: She does not drink much. Tobacco: No tobacco use. Recreational Drugs: No drug use. GYNECOLOGICAL HISTORY: - Last Menstrual Period: 01/15/2025 Review of Systems Constitutional: Negative. HENT: Negative. Eyes: Negative. Respiratory: Negative. Cardiovascular: Negative. Gastrointestinal: Negative. Genitourinary: Negative for dysuria. Skin: Negative. Neurological: Negative. Psychiatric/Behavioral: Negative. Objective Blood pressure 134/81, pulse 87, temperature 98.2 ??F (36.8 ??C), temperature source Temporal, resp. rate 20, height 5' 1 (1.549 m), weight 220 lb (99.8 kg), last menstrual period 01/15/2025, SpO2 97%, not currently . Body mass index is 41.57 kg/m??. Physical Exam Vitals reviewed. Constitutional: General: She is not in acute distress. HENT: Mouth/Throat: Mouth: Mucous membranes are moist. Eyes: Conjunctiva/sclera: Conjunctivae normal. Cardiovascular: Rate and Rhythm: Normal rate and regular rhythm. Pulmonary: Effort: Pulmonary effort is normal. Breath sounds: Normal breath sounds. Musculoskeletal: Cervical back: Neck supple. Right lower leg: No edema. Left lower leg: No edema. Neurological: Mental Status: She is alert and oriented to person, place, and time. Psychiatric: Mood and Affect: Mood normal. Thought Content: Thought content normal. Results Results for orders placed or performed in visit on 02/21/25 HUMAN CHORIONIC GONADOTROPIN QUANTITATIVE Result Value Ref Range Hcg Quant 72 (H) <5 mIU/mL Narrative Female (non-): 0-4.9 mIU/mL Female (postmenopausal): 0-8.1 mIU/mL Indeterminate values for (e.g., 5-25 mIU/mL) may be confirmed with a repeat test in 48-72hours. Values in should double every 2-3 days for the first six weeks. Ingestion of samuel doses of biotin (>5 mg/day) taken within 8 hours of drawing blood sample can interfere with this immunoassay test. The provider educated the patient (or legal textiles sales representative) on the use of the ambient listening artificial intelligence tool, [employer]. They were informed that this AI tool [...] of such information, the patient (or legal textiles sales representative), and each individual in attendance with the patient, verbally consented to the use of the AI tool. documented in this encounter Plan of Treatment Not on file documented as of this encounter Goals Goal Patient Goal Type Associated Problems Recent Progress Patient-Stated? Author Blood Pressure < 140/90 Blood Pressure 128/82(2024 10:46 AM EST) No Misty Black CCMA Maintain a healthy diet, exercise regularly and maintain an ideal body weight General No Janis Ackerman CCMA Stay Tobacco Free Lifestyle No Misty Black CCMA documented as of this encounter Procedures Procedure Name Priority Date/Time Associated Diagnosis Comments HUMAN CHORIONIC GONADOTROPIN QUANTITATIVE Routine 02/21/2025 11:12 AM EST Amenorrhea documented in this encounter Results * (ABNORMAL) HUMAN CHORIONIC GONADOTROPIN QUANTITATIVE (02/21/2025 11:12 AM EST) Hcg Quant 72(H) <5 mIU/mL 02/21/2025 4:0 8 PM EST PREFERRED [facility] Blood VENOUS BLOOD / Unknown Venipuncture / Unknown 02/21/2025 11:12 AM EST 02/21/2025 11:12 AM EST Narrative PREFERRED [facility] - 02/21/2025 4:08 PM EST Female (non-): 0-4.9 mIU/mL Female (postmenopausal): 0-8.1 mIU/mL Indeterminate values for (e.g., 5-25 mIU/mL) may be confirmed with a repeat test in 48-72 hours. Values in should double every 2-3 days for the first six weeks. Ingestion of samuel doses of biotin (>5 mg/day) taken within 8 hours of drawing blood sample can interfere with this immunoassay test. us Shannan Reyes APRN CHEMISTRY ORDERABLES [facility] [address] [facility] , [place] [place] [address] documented in this encounter Visit Diagnoses Diagnosis Amenorrhea- Primary Absence of menstruation History of gestational hypertension documented in this encounter Care Teams Instructor Technical Training Relationship Specialty Start Date End Date Sukumar Garcia MD [facility] [employer] [place] [phone] PCP - General Internal Medicine 05/21/21 documented as of this encounter
--- OUTSIDE RECORDS SUMMARY | 2025-02-24 11:00 | XMS_ITS | Encounter Summary ---
Author [place] [address] Care Team Providers Care Grinding Supervisor Name Role Phone Sukumar Garcia MD Primary Care Provider [phone] Reason for Referral * Ultrasound (Routine) - Pending Review Specialty Diagnoses / Procedures Referred By Contac t Referred To Contact Diagnoses First trimester Procedures PN US OB < 14 WEEKS SINGLE OR FIRST GESTATION Karmen Rodriguez DO [address] [place] [address] Phone: tel: fax: Referral ID Status Reason Start Date Expiration Date V isits Requested Visits Authorized [id number] Pending Review 02/24/2025 02/24/2026 1 1 * Consultation (Routine) - Pending Review Specialty Diagnoses / Procedures Referred By Contac t Referred To Contact Genetics Diagnoses First trimester Procedures OK OFFICE/OUTPATIENT NEW MODERATE MDM 45 MINUTES Karmen Rodriguez DO [address] [place] [address] Phone: tel: fax: [facility] [address] [place] [address] Phone: tel: fax: Referral ID Status Reason Start Date Expiration Date V isits Requested Visits Authorized [id number] Pending Review 02/24/2025 02/24/2026 99 99 Question Answer Is this for the Multi-Cancer Early Detection blood test? No Comments Patient interested in genetic screening for Reason for Visit * Reason Comments Initial Visit Encounter Details Date Type Department Care Team (Late st Contact Info) Description 02/24/2025 11:00 AM EST INITIAL VISIT [facility] [address] [place] [phone] Karmen Rodriguez DO [address] [place] [id number] First trimester (Primary Dx) Social History Tobacco Use Types Packs/Day Years Used Date Smoking Tobacco: Former Cigarettes 0.3 0.2 0 04/21/2019 - 07/20/2019 Passive Smoke Exposure: Current Smokeless Tobacco: Never Alcohol Use Standard Drinks/Week Comments No 0 (1 standard drink = 0.6 oz pur e alcohol) PHQ-2 Answer Date Recorded PHQ-2 Total Score 0 09/17/2024 Sexually Active Control Partners Comments Yes Male Estimated Date of Delivery Comme nts Yes 10/22/2025 Sex and Gender Information Value Date Recorded Sex Assigned at Not on file Legal Sex Female 5:35 AM EDT Gender Identity Not on file Sexual Orientation Not on file documented as of this encounter Last Filed Vital Signs Vital Sign Reading Time Taken Comments Blood Pressure 128/82 02/24/2025 10:46 AM EST Pulse 96 02/24/2025 10:46 AM EST Temperature 36.9 C (98.5 F) 02/24/2025 10:46 AM EST Respiratory Rate 18 02/24/2025 10:46 AM EST Oxygen Saturation 98% 02/24/2025 10:46 AM EST Inhaled Oxygen Concentration - - Weight 101 kg (222 lb 9.6 oz) 02/24/2025 10:46 A M EST Height 154.9 cm (5' 1 ) 02/24/2025 10:46 AM EST Body Mass Index 42.06 02/24/2025 10:46 AM EST documented in this encounter Functional [...] 4:15 PM EST Merry Romero RMA * Because of a physical, mental or emotional condition, does this person have difficulty doing errands alone such as visiting a doctor's office or shopping? Answer Date of Assessment Author No 04/23/2019 4:15 PM Merry Chino RMAlexis documented as of this encounter Mental Status * Because of a physical, mental or emotional condition, does this person have serious difficulty concentrating, remembering or making decisions? Answer Entry Date Author No 04/23/2019 4:15 PM EST Merry Romero RMA documented in this encounter Progress Notes * Karmen Rodriguez, DO - 02/24/2025 11:00 AM EST Initial Visit Care Subjective PATIENT: Angela Oleary : 2000 Angela Oleary is a 24 y.o. female presenting for follow-up obstetrical visit. She is a at 5w5d weeks gestation. Patient's last menstrual period was 01/15/2025 (approximate). with an Estimated Date of Delivery: 10/22/25 Patient reports being nervous. She reports a difficult previously. Reports gestational hypertension. Reports concern about herpes diagnosis for this . Reports concern about chronicback pain and managing it during this . Reports some spotting Are you taking vitamins? Yes Objective BP 128/82 Pulse 96 Temp 98.5 ??F (36.9 ??C) (Temporal) Resp 18 Ht 5' 1 (1.549 m) Wt 222 lb 9.6 oz (101 kg) LMP 01/15/2025 (Approximate) SpO2 98% BMI 42.06 kg/m?? Cardiovascular: Normal rate Respiratory: Normal effort MSK: No pitting edema noted Urine dipstick Results for orders placed or performed in visit on 02/24/25 CHLAMYDIA/GC Specimen: Urine, Random Narrative The following orders were created for panel order CHLAMYDIA/GC. Procedure Abnormality Status --------- ------ CHLAMYDIA/GC BY TMA[[id number]] In process Please view results for these tests on the individual orders. SCREEN WITH HEMOGRAM Narrative The following orders were created for panel order SCREEN WITH HEMOGRAM. Procedure Abnormality Status --------- ------ ABORH[[id number]] In process ANTIBODY SCREEN IGG[[id number]] In process CBC[[id number]] In process HEPATITIS B SURFACE ANTIGEN[[id number]] In process RUBELLA ANTIBODY IGG[[id number]] In process SYPHILIS SCREEN WITH REF...[[id number]] In process BB HISTORY CHECK[[id number]] In process Please view results for these tests on the individual orders. SEP URINALYSIS POC Result Value Ref Range UA Color POC Yellow Color UA Appear POC Clear Clear UA Gluc POC Negative Negative mg/dL UA Bili POC Negative Negative UA Ketones POC Negative Negative mg/dL UA SG POC 1.015 1.001 - 1.035 no units UA Blood POC Moderate (A) Negative UA pH POC 6.5 5.0 - 8.0 pH UA Protein POC Negative Negative mg/dL UA Urobilinogen POC 0.2 0.2, 1.0 UA Nitrite POC Negative Negative UA Leuk Est POC Negative Negative Current Labs and Ultrasound No results found for this or any previous visit (from the past 36 weeks). The following are the results for your labs from the Office Visit encounter on 12/06/22: 1. CBC WITH DIFF Result Value Ref Range WBC 7.9 3.7 - 10.3 x10(3)/mcL RBC 4.38 3.90 - 5.20 x10(6)/mcL Hgb 12.2 11.2 - 15.7 g/dL Hct 38.6 34.0 - 45.0 % MCV 88.1 80.0 - 100.0 fL MCH 27.9 26.0 - 34.0 pg MCHC 31.6 30.7 - 35.5 g/dL RDW 13.0 <=14.9 % Platelet 311 155 - 369 x10(3)/mcL MPV 10.2 8.8 - 12.5 fL Neut Percent 62.7 % Imm Gran% 0.5 % Lymph Percent 26.9 % [place] Percent 7.4 % Eos Percent 2.0 % Baso Percent 0.5 % Neut # 4.9 1.6 - 6.1 x10(3)/mcL IMMGRAN# 0.0 0.0 - 0.1 x10(3)/mcL Lymph # 2.1 1.2 - 3.9 x10(3)/mcL [place] # 0.6 0.3 - 0.9 x10(3)/mcL Eos# 0.2 0.0 - 0.5 x10(3)/mcL Baso # 0.0 0.0 - 0.1 x10(3)/mcL The following are the results for your labs from the Office Visit encounter on 07/09/22: 2. HIV AG/AB Result Value Ref Range HIV Ag/AB Non-Reactive Non-Reactive The following are the results for your labs from the Office Visit encounter on 04/19/22: 3. CAGE MAKER CYTOLOGY REQUEST (PAP ONLY) Result Value Ref Range CASE REPORT Gynecologic Cytology Report Case: [id number] Authorizing Provider: Karmen Rodriguez DO Collected: 04/19/2022 1009 Ordering Location: [facility] Received: 04/19/2022 1009 First Screen: Earnest Youssef CT Specimen: LIQUID-BASED PAP - CERVICAL/ENDOCERVICAL, Cervix, Endocervical PAP FINAL DIAGNOSIS Negative for intraepithelial lesion or malignancy MICROSCOPIC DESCRIPTION Microscopic examination is performed and the findings corroborate the diagnosis. PAP SMEAR ADEQUACY Satisfactory for evaluation ENDOCERVICAL T-ZONE Transformation zone present EMBEDDED IMAGES PAP DISCLAIMER The Pap Smear is a screening test that aids in the detection of cervical cancer and cancer precursors. Both false positive and false negative results can occur. The test should be used at regular intervals, and positive results should be confirmed before definitive therapy. Processed using the [employer] Automated cytology screening device ([employer]). The following are the results for your labs from the Hospital Encounter encounter on 11/07/20: 4. CBC Result Value Ref Range Hgb 7.6 (L) 11.2 - 15.7 g/dL Hct 23.2 (L) 34.0 - 45.0 % 5. CHLAMYDIA/GC PROBE GENITAL SWAB Specimen: Swab Result Value Ref Range Chlamydia-OB Ext None Detected 6. ABORH Result Value Ref Range ABO/RH-OB Ext 2 O Positive 7. HEPATITIS B SURFACE ANTIGEN Result Value Ref Range HBsAg-OB Ext Negative Lab Results Component Value Date HEPBSAG Non-Reactive 07/09/2022 HEPAIGM Non-Reactive 07/09/2022 HEPBIGM Non-Reactive 07/09/2022 HEPCAB Non-Reactive 07/09/2022 Lab Results Component Value Date HGBA1C 5.4 07/09/2022 UDS: Lab Results Component Value Date 6AMHEROIN Absent 11/07/2020 AMPHETAMINES Absent 11/07/2020 LABBARB Absent 11/07/2020 LABBENZ Absent 11/07/2020 CANNABINOIDM Absent 11/07/2020 COCAINEMETAB Absent 11/07/2020 FENTANYL Absent 11/07/2020 METHADONEAND Absent 11/07/2020 OPIATE Absent 11/07/2020 OXYCODONELVL Absent 11/07/2020 URINECREATIN 50.7 11/07/2020 Anemia Screening: Lab Results Component Value Date WBC 7.9 12/06/2022 HGB 12.2 12/06/2022 HCT 38.6 12/06/2022 MCV 88.1 12/06/2022 PLT 311 12/06/2022 Gonorrhea Screening: Lab Results Component Value Date NEISSERIAGON Not Detected 04/19/2022 Chlamydia Screening: Lab Results Component Value Date CHLAMYDIATRA Not Detected 04/19/2022 Genetic screening: Discussed: Yes Genetic counseling referral made Initial Ultrasound: Date: ordered Need for Rhogam at 28 weeks: Lab Results Component Value Date ABORH O POS 11/07/2020 Rhogam not needed GANG INVESTIGATOR History OB history: # 1 Hx of gestational hypertension: yes OB History Para Term AB Living 2 1 1 0 0 1 SAB IAB Ectopic Multiple Live Births 0 0 0 0 1 # Outcome Date GA Lbr Milad/2nd Weight Sex Type Anes PTL Lv 2 Current 1 Term 11/08/20 37w5d 6 lb 14.4 oz (3.13 kg) M OVD EPI N FARAZ Complications: Gestational hypertension, Labor with prolonged second stage, Vacuum extractor delivery, delivered, Anemia Name: ANGELA OLEARY BOY Apgar1: 9 Apgar5: 9 Angela Oleary is a 24 y.o. female 5w5d GA with Estimated Date of Delivery: 10/22/25 seen today for her obstetrical visit. Primary OB physician is . She is considered Moderate Risk OB due to the following factors: Assessment Diagnoses and all orders for this visit: First trimester - ACUTE HEPATITIS PANEL; Future - AMB REFERRAL TO GENETIC COUNSELING - HEMOGLOBIN A1C; Future - PN US OB < 14 WEEKS SINGLE OR FIRST GESTATION; Future - SCREEN WITH HEMOGRAM; Future - HIV AG/AB; Future - SEP URINALYSIS POC - HUMAN CHORIONIC GONADOTROPIN QUANTITATIVE; Future - CHLAMYDIA/GC; Future Karmen Rodriguez DO Family Medicine 02/24/2025 documented in this encounter Miscellaneous Notes * Patient Instructions - Karmen Rodriguez DO - 02/24/2025 11:00 AM EST Please call Central [phone] to set up your imaging documented in this encounter Plan of Treatment Scheduled Orders Name Type Priority Associated Diagnoses Orde r Schedule PN US OB < 14 WEEKS SINGLE OR FIRST GESTATION Imaging Routine First trimester 1 Occurrences starting 02/24/2025 until 02/24/2026 Scheduled Referrals Name Type Priority Associated Diagnoses Order Schedule AMB REFERRAL TO GENETIC COUNSELING Outpatient Referral Routine First trimester Ordered: 02/24/2025 documented as of this encounter Goals Goal [...] Procedure Name Priority Date/Time Associated Diagnosis Comments HIV AG/AB Routine 02/24/2025 11:31 AM EST First trimester BB HISTORY CHECK Routine 02/24/2025 11:3 1 AM EST First trimester SYPHILIS SCREEN WITH REFLEX RPR QUANT Routine 02/24/2025 11:31 AM EST First trimester SCREEN WITH HEMOGRAM Routine 02/24/2025 11:31 AM EST First trimester CBC Routine 02/24/2025 11:31 AM EST First trimester ACUTE HEPATITIS PANEL Routine 02/24/2025 11:31 AM EST First trimester ABORH Routine 02/24/2025 11:31 AM EST First trimester RUBELLA ANTIBODY IGG Routine 02/24/2025 11:31 AM EST First trimester HEPATITIS B SURFACE ANTIGEN Routine 02/24/2025 11:31 AM EST First trimester ANTIBODY SCREEN IGG Routine 02/24/2025 1 1:31 AM EST First trimester HUMAN CHORIONIC GONADOTROPIN QUANTITATIVE Routine 02/24/2025 11:31 AM EST First trimester HEMOGLOBIN A1C Routine 02/24/2025 11:31 AM EST First trimester CHLAMYDIA/GC Routine 02/24/2025 11:30 AM EST First trimester CHLAMYDIA/GC BY TMA Routine 02/24/2025 1 1:30 AM EST First trimester SEP URINALYSIS POC Routine 02/24/2025 10 :58 AM EST First trimester documented in this encounter Results * BB HISTORY CHECK (02/24/2025 11:31 AM EST) BB HISTORY CHECK (1) Previous History OK 02/24/2025 3:16 PM EST [facility] Blood VENOUS BLOOD / Unknown Venipuncture / Unknown 02/24/2025 11:31 AM EST 02/24/2025 11:31 AM EST us Karmen Rodriguez DO BLOOD BANK ORDERABLES Final Result Performing Organization Address City/[facility]/ZIP Co de Phone Number [facility] [address] [place] [address] * SYPHILIS SCREEN WITH REFLEX RPR QUANT (02/24/2025 11:31 AM EST) Trep Ab Non-Reactiv e Non-Reacti ve 02/24/2025 3:09 PM EST [facility] Blood VENOUS BLOOD / Unknown Venipuncture / Unknown 02/24/2025 11:31 AM EST 02/24/2025 11:31 AM EST us Karmen Rodriguez DO CHEMISTRY ORDERABLES Final R esult Performing Organization Address [facility] Co de Phone Number [facility] [address] [place] [address] , [place] [address] * RUBELLA ANTIBODY IGG (02/24/2025 11:31 AM EST) Rubella IgG 9.320 Index Value 02/24/2025 3:55 PM EST [facility] Comment: < 0.90 - Negative No significant level of detectable rubella IgG Antibody (Presumed Non-Immune) 0.90 to 0.99 - Equivocal Repeat testing in 10-14 days is recommended > or = 1.00 - Positive Previous exposure or vaccination (Immune) Note: The magnitude of the measured result is not indicative of the amount of antibody present. Blood VENOUS BLOOD / Unknown Venipuncture / Unknown 02/24/2025 11:31 AM EST 02/24/2025 11:31 AM EST us Karmen Rodriguez DO IMMUNOLOGY ORDERABLES Final Result Performing Organization Address City/[facility]/ZIP Co de Phone Number [facility] [address] [facility] , [place] [address] * HEPATITIS B SURFACE ANTIGEN (02/24/2025 11:31 AM EST) Pathologist [facility] Hep Bs Ag Non-Reacti ve Non-React delio 02/24/2025 3:09 PM EST [facility] Comment:HBsAg not detected. Does not exclude possibility of exposure to HBV. Blood VENOUS BLOOD / Unknown Venipuncture / Unknown 02/24/2025 11:31 AM EST 02/24/2025 11:31 AM EST Narrative [facility], [facility] - 02/24/2025 3:09 PM EST Test performed using [employer] electrochemiluminescence immunassay (ECLIA). us Karmen Rodriguez DO CHEMISTRY ORDERABLES Final R esult [facility], [address] , [place] [address] * CBC (02/24/2025 11:31 AM EST) [facility] WBC 5.2 3.7 - 10.3 x10(3)/mcL 02/24/2025 3:20 PM EST [facility] RBC 4.39 3.90 - 5.20 x10(6)/mcL 02/24/2025 3:20 PM EST [facility] Hgb 12.1 11.2 - 15.7 g/dL 02/24/2025 3:20 PM EST [facility] Hct 37.1 34.0 - 45.0 % 02/24/2025 3:20 PM EST [facility] MCV 84.5 80.0 - 100.0 fL 02/24/2025 3:20 PM EST [facility] MCH 27.6 26.0 - 34.0 pg 02/24/2025 3:20 PM EST [facility] MCHC 32.6 30.7 - 35.5 g/dL 02/24/2025 3:20 PM EST [facility] RDW 13.1 <=14.9 % 02/24/2025 3:20 PM EST [facility] Platelet 276 155 - 369 x10(3)/mcL 02/24/2025 3:20 PM EST [facility] MPV 10.2 8.8 - 12.5 fL 02/24/2025 3:20 PM EST [facility] Blood VENOUS BLOOD / Unknown Venipuncture / Unknown 02/24/2025 11:31 AM EST 02/24/2025 11:31 AM EST us Karmen Rodriguez DO HEMATOLOGY ORDERABLES Final Result [facility] [address] [facility], [place] [address] * ANTIBODY SCREEN IGG (02/24/2025 11:31 AM EST) Pathologist [facility] ABSC IgG Int Negative 02/24/2025 4:06 PM EST [facility] Blood VENOUS BLOOD / Unknown Venipuncture / Unknown 02/24/2025 11:31 AM EST 02/24/2025 11:31 AM EST us Karmen Rodriguez DO BLOOD BANK ORDERABLES Final Result Performing Organization Address [facility] Co de Phone Number [facility] [address] [place] [address] * ABORH (02/24/2025 11:31 AM EST) Pathologist [facility] ABORH Int O POS 02/24/2025 4:0 0 PM EST [facility] Blood VENOUS BLOOD / Unknown Venipuncture / Unknown 02/24/2025 11:31 AM EST 02/24/2025 11:31 AM EST us Karmen Rodriguez DO BLOOD BANK ORDERABLES Final Result Performing Organization Address [facility] Co de Phone Number [facility] [address] [place] [address] * (ABNORMAL) HUMAN CHORIONIC GONADOTROPIN QUANTITATIVE (02/24/2025 11:31 AM EST) Pathologist [facility] Hcg Quant 15(H) <5 mIU/mL 02/24/2025 3:0 1 PM EST [facility] Blood VENOUS BLOOD / Unknown Venipuncture / Unknown 02/24/2025 11:31 AM EST 02/24/2025 11:31 AM EST Narrative [facility] - 02/24/2025 3:01 PM EST Female (non-): 0-4.9 mIU/mL Female (postmenopausal): 0-8.1 mIU/mL Indeterminate values for (e.g., 5-25 mIU/mL) may be confirmed with a repeat test in 48-72 hours. Values in should double every 2-3 days for the first six weeks. Ingestion of samuel doses of biotin (>5 mg/day) taken within 8 hours of drawing blood sample can interfere with this immunoassay test. Karmen Rodriguez DO CHEMISTRY ORDERABLES Final R esult Performing Organization Address [facility] Co de Phone Number [facility] [address] , [place] [address] * HIV AG/AB (02/24/2025 11:31 AM EST) [facility] HIV Ag/AB Non-Reacti ve Non-Reacti ve 02/24/2025 3:09 PM EST [facility] Comment:Negative for HIV-1 a ntigen and anti-HIV-1/anti-HIV-2 antibodies. Blood VENOUS BLOOD / Unknown Venipuncture / Unknown 02/24/2025 11:31 AM EST 02/24/2025 11:31 AM EST Narrative [facility] - 02/24/2025 3:09 PM EST Test performed using [employer] electrochemiluminescence immunassay (ECLIA). Karmen Rodriguez DO IMMUNOLOGY ORDERABLES Final Result Performing Organization Address [facility] Co de Phone Number [facility] [address] , [place] [address] * HEMOGLOBIN A1C (02/24/2025 11:31 AM EST) [facility] Hgb A1C 5.5 4.2 - 5.6 % 02/24/2025 3:43 PM EST [facility] [employer], [facility] Est. Avg Glucose 111 mg/dL 02/24/2025 3:43 PM EST [facility] Blood VENOUS BLOOD / Unknown Venipuncture / Unknown 02/24/2025 11:31 AM EST 02/24/2025 11:31 AM EST Narrative [facility] [employer] - 02/24/2025 3:43 PM EST REFERENCE RANGE: Normal: 4.0-5.6% Pre-diabetes: 5.7-6.4% Provisional diagnosis of diabetes: >6.4% Hgb F>10% and anything which shortens red cell survival, such as hemolytic anemia, or unstable hemoglobin variants such as HbSS, HbSC, or HbCC, will lower the HbA1c value associated with a given level of glycemic control. Karmen Rodriguez DO CHEMISTRY ORDERABLES Final R esult [facility] [address] [facility] , [place] [address] * ACUTE HEPATITIS PANEL (02/24/2025 11:31 AM EST) [facility] Hep Bs Ag Non-Reacti ve Non-React delio 02/24/2025 3:01 PM EST [facility] Comment:HBsAg not detected. Does not exclude possibility of exposure to HBV. Hep B Core IgM Non-Reacti ve Non-React delio 02/24/2025 3:01 PM EST [facility] Hep A IgM Non-Reacti ve Non-React delio 02/24/2025 3:01 PM EST [facility] [employer], [facility] Hep C Ab Non-Reacti ve Non-React delio 02/24/2025 3:01 PM EST [facility] Comment:No antibodies to HCV detected. Does not exclude possibility of exposure to HCV. Blood VENOUS BLOOD / Unknown Venipuncture / Unknown 02/24/2025 11:31 AM EST 02/24/2025 11:31 AM EST Narrative [facility] - 02/24/2025 3:01 PM EST Test performed using J[employer] electrochemiluminescence immunassay (ECLIA). Karmen Rodriguez DO CHEMISTRY ORDERABLES Final R esult Performing Organization Address City/[facility]/ZIP Co de Phone Number [facility] [address] [facility] , [place] [address] * CHLAMYDIA/GC BY TMA (02/24/2025 11:30 AM EST) [facility] Chlamydia trachomatis Not Detected Not Detected 02/24/2025 6:38 PM EST [facility] Neisseria gonorrhoeae Not Detected Not Detected 02/24/2025 6:38 PM EST [facility] Urine STRUCTURE OF URINARY TRACT PROPER / Unknown 02/24/2025 11:30 AM EST 02/24/2025 11:30 AM EST Narrative [facility] - 02/24/2025 6:38 PM EST Testing methodology is lcsw mediated amplification (TMA) using the Aptima Combo 2 assay from [employer]. A negative result does not completely rule [...] specimens. Detailed methodology is available upon request. Karmen Rodriguez DO MICROBIOLOGY - GENERAL ORDER TERRENCE Final Result Performing Organization Address City/[facility]/ZIP Co de Phone Number [facility] [address] [facility] , [place] [address] * (ABNORMAL) SEP URINALYSIS POC (02/24/2025 10:58 AM EST) [facility] UA Color POC Yellow Color 02/24/2025 11:00 AM EST [facility] UA Appear POC Clear Clear 02/24/2025 11:00 AM EST [facility]A Gluc POC Negative Negative mg/dL 02/24/2025 11:00 AM EST [facility] Bili POC Negative Negative 02/24/2025 11:00 AM EST [facility] Ketones POC Negative Negative mg/dL 02/24/2025 11:00 AM EST [facility] SG POC 1.015 1.001 - 1.035 no units 02/24/2025 11:00 AM EST [facility] Blood POC Moderate(A) Negative 02/24/2025 11:00 AM EST [facility] UA pH POC 6.5 5.0 - 8.0 pH 02/24/2025 11:00 AM EST [facility] UA Protein POC Negative Negative mg/dL 02/24/2025 11:00 AM EST [facility] Urobilinogen POC 0.2 0.2, 1.0 02/24/2025 11:00 AM EST [facility]A Nitrite POC Negative Negative 02/24/2025 11:00 AM EST [facility] Leuk Est POC Negative Negative 11:00 AM EST [facility] Urine STRUCTURE OF URINARY TRACT PROPER / Unknown 02/24/2025 10:58 AM EST 02/24/2025 11:00 AM EST Karmen Rodriguez DO POINT OF CARE TEST ORDERABLE S Final Result JULIAN KHANLER [address] [place] [id number] documented in this encounter Visit Diagnoses Diagnosis First trimester - Primary documented in this encounter Care Teams Grinding Supervisor Relationship Specialty Start Date End Date Sukumar Garcia MD [address] [place] [phone] PCP - General Internal Medicine 05/21/21 documented as of this encounter
--- NOTE | 2025-03-18 15:14 | ED_ITS ---
<Statement entered by Quyen Granger DO - 03/19/25 00:01> I was consulted by the CHON, and we discussed the complexity of problems being addressed. I approve the treatment and management plan for this patient's care in the emergency department, thus performing a substantial portion of the medical decision making. Quyen Granger DO Discharge Plan Disposition Patient Disposition: Home, Self-Care Condition: Good Prescriptions Prescriptions: New ondansetron 4 mg tablet,disintegrating 4 mg PO QID PRN (Reason: nausea and vomiting) Qty: 16 0RF No Action valacyclovir 500 mg tablet 1,000 mg PO ONCE PRN (Reason: herpes) Patient Comments: TAKE 2 TABLETS BY MOUTH EVERY 24 HOURS FOR 5 DAYS. propranolol 40 mg tablet 40 mg PO BID Qty: 60 5RF levofloxacin 750 mg tablet 750 mg PO DAILY Qty: 7 0RF ondansetron 4 mg Tablet,Disintegrating 4 mg PO Q8H PRN (Reason: Nausea) Qty: 12 0RF ibuprofen 800 mg tablet 800 mg PO Q8H PRN (Reason: pain) Qty: 30 0RF omeprazole 40 mg capsule,delayed release(DR/EC) 40 mg PO DAILY Patient Comments: TAKE 1 CAPSULE BY MOUTH DAILY FOR 180 DAYS. Referrals Follow up/Referrals: Karmen Rodriguez DO [Primary Care Provider, Family Practice] - See instructions Gonsalo Kc II, MD [Staff Physician, Gastroenterology] - See instructions Activity Restrictions/Add. Instructions Additional Instructions/Restrictions: You were evaluated on an emergency basis. It is very important that you follow- up with your primary care provider and any specialist who we discussed within the next 2 days in order to better assess your health more comprehensively. For example, incidental findings on imaging or laboratory results that were performed today may be discovered, which do not require immediate medical care, but may impact your health in the future. If your symptoms worsen or persist, please return to the emergency department immediately for reassessment. Take all medications as prescribed. In queue for allowing me to participate in your health care, and I hope you feel better soon. Clinical Impressions Clinical Impression: Abdominal pain Instructions Patient Instructions: DI for Acute Abdominal Pain Print Language Print Language: Greenlandic Discharge ED Provider: Quyen Granger General Adult HPI General Chief complaint: Abdominal Pain Stated complaint: Abd. Pain Time Seen by Provider: 03/18/25 15:17 History of Present Illness HPI narrative: 24-year-old female presents to the emergency department with complaints of intermittent abdominal pain for the past week. She denies nausea, vomiting, diarrhea, urinary symptoms or fevers. She does have a history of GERD and reports taking omeprazole as prescribed. She reports she had a miscarriage in December. She states she did not follow-up with OB after that miscarriage. Related Data Home Medications ?Medication ?Instructions ?Recorded ?Confirmed omeprazole 40 mg capsule,delayed 40 mg PO DAILY 10/29/24 release valacyclovir 500 mg tablet 1,000 mg PO ONCE PRN herpes 12/11/23 10/29/24 Previous Rx's ?Medication ?Instructions ?Recorded ondansetron 4 mg disintegrating 4 mg PO Q8H PRN Nausea #12 tabs 01/28/24 tablet propranolol 40 mg tablet 40 mg PO BID Cardia arrythmi a, 06/14/24 Headache #60 tabs levofloxacin 750 mg tablet 750 mg PO DAILY #7 tabs 03/15 ibuprofen 800 mg tablet 800 mg PO Q8H PRN pain #30 t abs 11/17/24 ondansetron 4 mg disintegrating 4 mg PO QID PRN nausea and 03/18/25 tablet vomiting #16 tabs Allergies Allergy/AdvReac Type Severity Reaction Status Date / Time No Known Allergies Allergy Verified 07/19/24 08:52 [facility] Disclaimer: The information contained in this section may have been updated after the patient was seen, as this information can be updated by other users. Medical History Typical angina Dyspnea on exertion NSVT (nonsustained ventricular tachycardia) Witnessed episode of apnea Snoring Sleep-disordered breathing Elevated C-reactive protein (CRP) Elevated sed rate Palpitations SOBOE (shortness of breath on exertion) Chest pain New daily persistent headache Anemia UTI (urinary tract infection) GERD (gastroesophageal reflux disease) Depression Anxiety Migraine Asthma Hypertension Surgical History No history of previous surgery Family History Other Cancer Coronary artery disease Diabetes Heart attack Hyperlipidemia Hypertension Thyroid disorder Social History Smoking Status: Current every day smoker tobacco type: e-cigarettes years smoked: 1 alcohol intake: never substance use type: denies use current occupational status: employed Travel in the last 8 weeks?: None household members: children housing: apartment marital status: single number of children: 1 Have you lived/traveled outside [place] in past 30 days?: No Contact w/someone who lives/traveled outside [place] past 30 days?: No Exposure to someone with infectious disease in past 14 days?: No Do you have a fever (greater than 100.4 F or 38 C)?: No Have you tested positive for COVID-19?: No Exposed to someone with COVID-19 in past 14 days?: No Do you have a sore throat?: No Do you have a cough?: No Do you have any weakness?: No Do you have any diarrhea?: No Are you experiencing any unusual bleeding?: No Do you have any muscle aches/pain?: No Do you have any abdominal pain?: No Are you experiencing loss of taste or smell?: No Other Medical History Have you received the Pneumonia Vaccine: No ROS Obtained: Yes other Gastrointestinal Gastrointestingal: Reports abdominal pain Physical Exam Narrative Physical exam: General: Awake, aware, in no acute distress HEENT: Normocephalic, no evidence of trauma CV: RRR, no murmurs, rubs, or gallops Pulm: CTA bilaterally with no rhonchi, rales, wheezes ABD: Patient reports tenderness on palpation of suprapubic area. No CVA tenderness present. Patient with normal active bowel sounds. Psych, appropriate mood and affect General General appearance: alert Respiratory Respiratory exam: Present normal lung sounds bilaterally Cardiovascular Cardiovascular exam: Present regular rate Neurological Exam Neurological exam: Present alert Medical Decision Making Medical Records Screening: Per USPSTF and CDC recommendations, given the prevalence of disease in our region, it is our hospital?s policy to screen for HIV and viral Hepatitis for all patients aged 18 and over and those with ongoing risk factors. Johann Inquiry Pt receiving controlled substance: No Vital Signs: 03/18/25 15:23 Temperature 98.0 F Temperature Source Oral Pulse Rate [Radial] 83 Respiratory Rate 18 Blood Pressure [Right Arm] 156/80 H Blood Pressure Mean [Right Arm] 105 Blood Pressure Source [Right Arm] Automatic Cuff Blood Pressure Position [Right Arm] Sitting 02 Sat by Pulse Oximetry 99 Oxygen Delivery Method Room Air Lab Data Lab Results 03/18/25 15:15: Urine Color Yellow, Urine Appearance Clear, Urine pH 6.0, Ur Specific [place] <= 1.005, Urine Protein Negative, Urine Glucose (UA) Negative, Urine Ketones Negative, Urine Blood Negative, Urine Nitrate Negative, Urine Bilirubin Negative, Urine Urobilinogen 0.2, Ur Leukocyte Esterase Trace, Urine RBC None, Urine WBC 3-5, Ur Squamous Epith Cells 10-20, Urine Bacteria Trace 03/18/25 15:25: WBC 8.2, RBC 4.63, Hgb 12.7, Hct 38.8, MCV 83.8, MCH 27.4, MCHC 32.7, RDW 13.0, Plt Count 298, MPV 9.6, Neut % (Auto) 56.8, Lymph % (Auto) 34.1, [place] % (Auto) 7.5, Eos % (Auto) 1.1, Baso % (Auto) 0.4, Neut # (Auto) 4.7, Lymph # (Auto) 2.8, [place] # (Auto) 0.6, Eos # (Auto) 0.1, Baso # (Auto) 0.0, Sodium 140, Potassium 4.1, Chloride 102, Carbon Dioxide 27, Anion Gap 15.1 H, BUN 11, Creatinine 0.80, Estimated Creat Clear 82, Estimated GFR 88, Est GFR ( Amer) 107, Glucose 78, Calcium 9.4, Magnesium 1.9, Total Bilirubin 0.3, AST 32, ALT 30, Alkaline Phosphatase 67, Total Protein 8.2, Albumin 4.5, Globulin 3.7 H, Albumin/Globulin Ratio 1.2, Lipase 103, HCG, Quant < 2 03/18/25 15:25 03/18/25 15:25 Orders (Tests/Meds): ED MEDICATIONS Generic Name Dose Route Start Last Admin Trade Name Freq PRN Reason Stop Dose Admin Sodium Chloride 1,000 mls @ 999 mls/hr 03/18/25 15:27 03/18/25 15:42 Sod Chlor 0.9% 1000ml Bag IV 03/18/25 16:27 999 mls/hr .Q1H1M ONE Administration Ketorolac Tromethamine 15 mg 03/18/25 15:27 03/18/25 15:43 Ketorolac 15mg/Ml Vial IV 03/18/25 15:28 15 mg ONCE ONE Administration ORDERS Category Date Time Status CBC w/Auto Diff [Complete Blood Count Auto Diff] Stat Lab 03/18/25 15:25 Completed CMP [Comprehensive Metabolic Panel] Stat Lab 03/18/25 15:25 Completed HCG,Quantitative Stat Lab 03/18/25 15:25 Completed HIV Combo Stat Lab 03/18/25 15:25 Received Hepatitis C Ab Qual. W/ RFX Stat Lab 03/18/25 15:25 Received Lipase Stat Lab 03/18/25 15:25 Completed Magnesium Stat Lab 03/18/25 15:25 Completed UA [Urinalysis and Microscopic] Stat Lab 03/18/25 15:15 Completed Medical Decision Narrative: Initial impression of presenting illness: 24-year-old female presents the emergency department with complaints of upper abdominal pain intermittently for the past week. She denies nausea, vomiting, diarrhea, fevers. Patient has a history of GERD and takes omeprazole as prescribed. He reports she did have a miscarriage in December and did not follow-up with her OB provider after that miscarriage. Differential diagnosis includes but is not limited to: Gastritis, gallbladder disease, GERD, pancreatitis Patient arrives hemodynamically stable, afebrile, without respiratory distress with vital signs interpreted by myself. Initial physical exam reveals normal active bowel sounds in all quadrants of abdomen. Patient reports tenderness to palpation of suprapubic area. No CVA tenderness present. Rest of exam is unremarkable. Initial diagnostic plan: Abdominal pain workup including quantitative hCG and urinalysis, normal saline bolus for hydration, Toradol for pain Results from initial plan were reviewed and interpreted by myself, pertinent positives include: Laboratory studies including urinalysis were nonactionable. Interventions in the ED: Patient was given normal saline bolus for hydration as well as Toradol for pain control Patient was made aware of the results and the findings, upon reevaluation patient has remained stable throughout stay, symptoms have improved. Upon reevaluation patient is resting comfortably in bed with no signs of acute distress. Her vital signs of also remained stable. Disposition: Reviewed finding today's workup with patient informed no acute abnormalities were noted. Advised patient that we will discharge with a prescription for nausea medication. Recommended that she continue taking her prescribed omeprazole as well as Tylenol and ibuprofen as needed for pain control. Advised her that I will give her contact information for GI provider Dr. Kc and recommended that she schedule outpatient follow-up for further evaluation of her ongoing pain. Instructed her to return to the emergency department any new or worsening symptoms. Patient is agreeable to plan of care. Patient made aware of findings and had a detailed discussion with symptomatic care and return precautions, patient voiced understanding. Critical Care Critical Care Time Critical Care Time: No
[2025-03-18 15:23] VITALS: BP 156/80; PULSE 83; RESP 18; TEMP 36.7; O2SAT 99; BMI 41.5
[2025-03-18 15:23] LABS: Microscopic, Urine URINE MICROSCOPIC (MICROSCOPIC)
[2025-03-18 15:24] LABS: Bilirubin,Urine Negative (Negative); Color,Urine YELLOW (Yellow); Glucose,Urine (UA) Negative (Negative); Ketones,Urine Negative (Negative); Leukocyte Esterase,Urine TRACE (Negative); PH,Urine 6.0 (5.0-8.5); Protein,Urine Negative (Negative); Specific Gravity, Urine <= 1.005 (1.005-1.030); Urobilinogen,Urine 0.2 EU/dl (0.2)
--- OUTSIDE RECORDS SUMMARY | 2025-03-18 15:27 | XMS_ITS | Clinical Summary ---
Author Organization [facility] Address [address] [place] [address] Phone Care Team Providers Care Airline Stewardess Name Role Phone Jeromy Barone MD Primary Care Physician [ ] Conditions or Problems Problem Name Problem Code Onset Date Status Entry Date Provider Comment Standard Description Annotate Screening, cervical cancer 702609300 (SNOMED CT) 05/17 Active 05/17 Tyrone Dugan APRN Screening for malignant neoplasm of cervix Body mass index (BMI) 38.0-38.9; adult Z68.38 (ICD-10-CM ) 05/17 Active 05/17 Tyrone Karenl HOOP FLARING MACHINE OPERATOR Body mass index [BMI] 38.0-38.9, adult Body mass index (BMI) 34.0-34.9; adult Z68.34 (ICD-10-CM ) 01/04 Correction 01/04 Tyrone Dugan HOOP FLARING MACHINE OPERATOR Body mass index [BMI] 34.0-34.9, adult Irregular menses 49837236 (SNOMED CT) 05/17 Active 05/17 Tyrone Howdeshell HOOP FLARING MACHINE OPERATOR Irregular periods Body mass index (BMI) 34.0-34.9; adult Z68.34 (ICD-10-CM ) 01/04 Removed 01/04 Diamond Mann HOOP FLARING MACHINE OPERATOR BCADM Body mass index [BMI] 34.0-34.9, adult Body mass index (BMI) 35.0-35.9; adult Z68.35 (ICD-10-CM ) 11/24 Correction 11/24 Diamond Mann HOOP FLARING MACHINE OPERATOR BCADM Body mass index [BMI] 35.0-35.9, adult Nausea 550090940 (SNOMED CT) 01/04 Active 01/04 Diamond Mackenzie GUZMANN BCADM Nausea GERD-esopha geal reflux 231599054 (SNOMED CT) 01/04 Active 01/04 Diamond Mackenzie [...] Body mass index [BMI] 32.0-32.9, adult HSV 45244674 (SNOMED CT) 05/29 Active 05/29 Tyrone Dugan APRN Herpesvirus infection 1 & 2 Std screening 267208978 (SNOMED CT) 05/21 Active 05/21 Tyrone Dugan [...] for surveillance of contraceptives , unspecified Anemia 634217016 (SNOMED CT) 01/05 Active 01/05 Sandie Rodriguez MD Anemia Supervision , normal first 590115121 (SNOMED CT) 05/30 Resolved 05/30 Sandie Rodriguez MD Primigravida Encounter for screening for malformatio ns 840827936 (SNOMED CT) 06/27 Resolved 06/27 Sandie Rodriguez MD screening for malformation Uterine size-date discrepancy , unspecified trimester 097706497 (SNOMED CT) 10/18 Resolved 10/18 Sandie Rodriguez MD Uterine size for dates discrepancy care 884779341 (SNOMED CT) 01/05 Active 01/05 Sandie Rodriguez [...] for age Gestational hypertensio n, third trimester 43826678 (SNOMED CT) 11/06 Inactive 11/06 Sandie Rodriguez MD -alexandra lester hypertension 36 weeks gestation of 41170537 (SNOMED CT) 11/01 Resolved 11/02 Sandie Rodriguez MD Gestation period, 36 weeks 37 weeks gestation of Z3A.37 (ICD-10-CM ) 11/06 Inactive 11/06 Sandie Rodriguez MD 37 weeks gestation of 36 weeks gestation of 66268986 (SNOMED CT) 11/01 Removed 11/02 Sandie Rodriguez [...] Z68.51 (ICD-10-CM ) 10/18 Removed 10/18 Sandie Rodriguze MD Body mass index [BMI] pediatric, less than 5th percentile for age Body mass index (BMI) pediatric; less than 5th percentile for age Z68.51 (ICD-10-CM ) 10/04 Correction 10/04 Sandie Rodriguez MD Body mass index [BMI] pediatric, less than 5th percentile for age Uterine size-date discrepancy , unspecified trimester 728606750 (SNOMED CT) 10/18 Removed 10/18 Sandie Rodriguez MD Uterine size for dates discrepancy 34 weeks gestation of 93628833 (SNOMED CT) 10/18 Inactive 10/18 Sandie Rodriguez [...] percentile for age 26 weeks gestation of 43822036 (SNOMED CT) 08/23 Inactive 08/24 Sandie Rodriguez [...] percentile for age 18 weeks gestation of 66845744 (SNOMED CT) 06/27 Inactive 06/27 Sandie Rodriguez MD Gestation period, 18 weeks Body mass index (BMI) pediatric; less than 5th percentile for age Z68.51 (ICD-10-CM ) 05/24 Correction 05/24 Sandie Rodriguez MD Body mass index [BMI] pediatric, less than 5th percentile for age Encounter for screening for malformatio ns 935356616 (SNOMED CT) 06/27 Removed 06/27 Sandie Rodriguez [...] less than 5th percentile for age Heartburn 79300308 (SNOMED CT) 05/24 Active 05/24 Sandie oRdriguez MD Heartburn 13 weeks gestation of 77709281 (SNOMED CT) 05/24 Inactive 05/24 Sandie Rodriguez [...] percentile for age 9 weeks gestation of 654628 (SNOMED CT) 04/26 Inactive 04/26 Sandie Rodriguez MD Gestation period, 9 weeks Body mass index (BMI) pediatric; less than 5th percentile for age Z68.51 (ICD-10-CM ) 05/30 Removed 05/30 Sandie Rodriguez MD Body mass index [BMI] pediatric, less than 5th percentile for age Less than 8 weeks gestation of 29894729 (SNOMED CT) 05/30 Inactive 05/30 Sandie Rodriguez MD First trimester Counseling for nutrition Z71.3 (ICD-10-CM ) 05/30 Inactive 05/30 Sandie Rodriguez MD Dietary counseling and surveillance Irregular menses 09706945 (SNOMED CT) 05/30 Active 05/30 Sandie Rodriguez MD Irregular periods Supervision , normal first 911751384 (SNOMED CT) 05/30 Removed 05/30 Sandie Rodriguez MD Primigravida Medications Medication Instructions Start Date Stop Date Generic Name [facility] Provider DEPO-PROVERA 150 MG/ML ALMA Inject 1 ml intramuscularly every three months to be given in doctor's office only 01/05 medroxyprogester one 14824346269 Sandie Rodriguez MD MEDROXYPROGESTERONE ACETATE 150 MG/ML ALMA INJECT 1 ML INTRAMUSCULARLY EVERY THREE MONTHS TO BE GIVEN IN DOCTOR'S OFFICE ONLY 01/07 medroxyprogester one 33190323829 Sandie Rodriguez MD VALTREX 500 MG TABS Take 1 tablet by mouth twice a day 05/31 valacyclovir 04778268953 Tyrone Dugan APRN FERROUS SULFATE 325 (65 Fe) MG TABS Take 1 tablet by mouth twice a day 01/05 ferrous sulfate 80227769166 Sandie Rodriguez MD DEPO-PROVERA 150 MG/ML ALMA Inject 1 ml intramuscularly every three months to be given in doctor's office only 01/05 medroxyprogester one 11362521866 Sandie Rodriguez MD PLUS 27-1 MG TABS Take 1 tablet by mouth once a day 05/30 pnv,calcium 20-yjta-edaub acid 48562599074 Sandie Rodriguez MD OMEPRAZOLE 20 MG CPDR Take 1 capsule by mouth once a day 06/07 omeprazole 27143400117 Sandie Rodriguez MD FAMOTIDINE 20 MG TABS Take 1 tablet by mouth once a day 07/04 famotidine 67734800697 Sandie Rodriguez MD OMEPRAZOLE 20 MG TBEC Take 1 tablet by mouth once a day 09/06 omeprazole 46210300845 Sandie Rodriguez MD FAMOTIDINE 20 MG TABS TAKE 1 TABLET BY MOUTH 1 TIME A DAY 07/04 FAMOTIDINE 93867455809 Sandie Rodriguez MD OMEPRAZOLE 20 MG CPDR TAKE 1 CAPSULE BY MOUTH ONCE A DAY 06/07 OMEPRAZOLE 07644505275 Sandie Rodriguez MD FAMOTIDINE 20 MG TABS TAKE 1 TABLET BY MOUTH 1 TIME A DAY 05/24 FAMOTIDINE 26670574867 Sandie Rodriguez MD FAMOTIDINE 20 MG TABS TAKE 1 TABLET BY MOUTH 1 TIME A DAY 05/24 FAMOTIDINE 70965399493 Sandie Rodriguez MD PLUS 27-1 MG TABS TAKE 1 TABLET BY MOUTH ONCE A DAY OR COVERED EQUIVALENT 05/30 VIT-FE FUMARATE-FA 06402390660 Sandie Rodriguez MD Medications Administered No information available. Allergies, Adverse Reactions, Alerts Observed no known allergies at Results Date Name Value Unit Range Flag Description Office Visit: Room 4 HSV GENITAL no Herpes si mplex virus identified in Genital specimen by Organism specific culture Lab Report: OBSTETRIC PANEL, OBSTETRIC PANEL, OBSTETRIC PANEL, OBSTETRIC ... RUBELLA IGG 9.67 N Rubella v irus IgG Ab [Ratio] in Serum --1st specimen/2nd specimen HBSAG NON-REACTIVE NON-REACTIV E N Hepatitis B [...] N Creatinine [Mass/volume] in Urine Office Visit: lobby ok SPEC GR URIN 1.015 Specific gravity of [...] HIV AB NON-REACTIVE NON-REACTIV E N HIV 2 Ab [Presence] in Serum HEP C AB NON-REACTIVE NON-REACTIV E N [...] Serum or Plasma - mg/dL Office Visit: Pbx Technician visit LABS ORDERED Test 26260 Laboratory tests ordered PREG TST URN negative [...] in Blood ABS NEUTROPH 6082 CELLS/UL 10*3/uL 3065-3142 N Neutrophils [#/volume] in Blood MPV 10.1 [...] % Plan of Care Type Date Detail Referral [facility], [address] [place] [address] [address], [place], [address] Pending order Test 8 1025 Pending order [...] order Test 8 1025 Pending order Hemoglobin 43250 Pending order T1 CBC with diff Pending order Depo Provera 150 mg No Charge Pending order Ultrasound Pending Order exclud ed from report: Pending order Urine Dip Auto 8 1003 Pending order Hemoglobin 07723 Pending order T1 Urine Culture Pending order Urine Dip Auto 8 1003 Pending order COVID-19 Moderna Pending order administratio n - COVID-19 - Moderna 2nd dose Pending order Urine Dip Auto 8 1003 Pending order Strep Screen 878 80 Pending order Strep Screen 878 80 Pending Order exclud ed from report: Pending order Urine Dip Auto 8 1003 Pending order Test 8 1025 Patient education Medications Patient education Medications Patient education Medications Procedures Code Procedure Name Date Entry Date [facility]-[id number] Giving encouragement to exercise SCT-0339662 Former smoker CPT-3077F Most recent systolic blood pressure >=140 mm Hg CPT-86362 Test 06403 [facility] 746 T1 Prolactin [facility] 48457 T1 TSH reflex to free T4 06/19/26 [facility] 6399 T1 CBC with diff [facility] 496 T1 HGBA1c [facility] 45736 T1 ThinPrep Pap w re flex HR HPV/GC/Chlamydia mRNA E6/E7 CPT-3075F Most recent systolic blood pressure 130-1 39 mm Hg CPT-3078F Most recent diastolic blood pressure <80 mm Hg CPT-1159F Medication list documented in medical rec ord [facility] 6399 T1 CBC with diff [facility] 57112 T1 BMP [facility] 13631 T1 Hepatic Function Panel 20 11/01/16 [facility] 496 T1 HGBA1c [facility] 63309 T1 Lipid Panel [facility] 54763 T1 TSH reflex to free T4 05/30/15 [facility] 63654 T1 HIV 1/2 Ag & Ab 4th gen -consent requi red [facility] 19584 T2 Carbam Free (Tegretol) 20 11/01/16 SCT-[id number] Medication Reconciliation SCT-621236212 Giving encouragement to exercise SCT-784515740 Dietary management education/guidance/counseling SCT-688866189 Lifestyle education regarding diet 01/04 CPT-3077F Most recent systolic blood pressure >=140 mm Hg CPT-3078F Most recent diastoli c blood pressure <80 mm Hg CPT-08021 Test 91227 Inj Order Injection(s) Ordered SCT-238516239745524 Medication Reconciliation SCT-5216422 Former smoker SCT-696108942 Giving encouragement to exercise SCT-489165777 Dietary management education/guidance/counseling SCT-904664134 Lifestyle education regarding diet 11/24 CPT-54499 Other Injection (IM/SC) 2021 SCT-586159000 Giving encouragement to exercise CPT-3075F Most recent systolic blood pressure 130-139 mm Hg CPT-3079F Most recent diastoli c blood pressure 80-89 mm Hg SCT-132799473 Giving encouragement to exercise CPT-3074F Most recent systolic blood pressure <130 mm Hg CPT-3078F Most recent diastoli c blood pressure <80 mm Hg CPT-1159F Medication list docu mented in medical record [facility] 45342 T2 BV Yeast Trich Culture (Affirm) 05/21 [facility] 38606 T1 G.C. Chlamydia [facility] 8472 T1 Hep C Ab [facility] 11075 T1 HIV 1/2 Ag & Ab 4 th gen -consent required [facility] 76160 T1 RPR w/ reflex to titer & confirmation [facility] 6447 T1 HSV 1/2 Ab IgG [facility] 16721 T1 HSV 1/2 Ab IgM CPT-3074F Most recent systolic blood pressure <130 mm Hg CPT-3078F Most recent diastoli c blood pressure <80 mm Hg CPT-1159F Medication list docu mented in medical record CPT-25033 Test 30037 CPT-17990 Hemoglobin 15935 CPT-40581 Urine Dip Auto 98407 SCT-[id number] Medication Reconciliation SCT-164575141 Giving encouragement to exercise [facility] 6399 T1 CBC with diff CPT-H0205AV Depo Provera 150 mg No Charge OB US GEN Ultrasound SCT-179193870713131 Medication Reconciliation CPT-3075F Most recent systolic blood pressure 130-139 mm Hg CPT-3079F Most recent diastoli c blood pressure 80-89 mm Hg SCT-110221111950718 Medication Reconciliation CPT-3077F Most recent systolic blood pressure >=140 mm Hg CPT-3079F Most recent diastoli c blood pressure 80-89 mm Hg CPT-1159F Medication list docu mented in medical record CPT-1160F Review of all medica tions by a prescribing practitioner [facility] 1715 T1 Protein:Creatinine Ratio, Urine 11/01 CPT-13966 Urine Dip Auto 82928 [facility] 18236 T1 G.C. Chlamydia [facility] 5617 T1 Group B Strep SCT-658734507860413 Medication Reconciliation CPT-3075F Most recent systolic blood pressure 130-139 mm Hg CPT-3079F Most recent diastoli c blood pressure 80-89 mm Hg SCT-065117980 Giving encouragement to exercise CPT-61765 Hemoglobin 47050 CPT-3074F Most recent systolic blood pressure <130 mm Hg CPT-3078F Most recent diastoli c blood pressure <80 mm Hg SCT-758526083347930 Medication Reconciliation CPT-3075F Most recent systolic blood pressure 130-139 mm Hg CPT-3078F Most recent diastoli c blood pressure <80 mm Hg [facility] 395 T1 Urine Culture CPT-98885 Urine Dip Auto 21574 SCT-813114615043573 Medication Reconciliation CPT-3074F Most recent systolic blood pressure <130 mm Hg CPT-3079F Most recent diastoli c blood pressure 80-89 mm Hg SCT-420662950 Giving encouragement to exercise [facility] 1759 T1 CBC no diff [facility] 84911 T1 GTT 3 Specimen [facility] 05246 T1 HIV 1/2 Ag & Ab 4 th gen -consent required [facility] 89687 T1 RPR w/ reflex to titer & confirmation CPT-3074F Most recent systolic blood pressure <130 mm Hg CPT-3079F Most recent diastoli c blood pressure 80-89 mm Hg SCT-693394851462859 Medication Reconciliation CPT-3074F Most recent systolic blood pressure <130 mm Hg CPT-3079F Most recent diastoli c blood pressure 80-89 mm Hg CPT-58880 COVID-19 Moderna CPT-0012A IZ administration - COVID-19 - Moderna 2nd dose Anatomy Scan Ultrasound Anatomy w/ TV U/S if needed 09/07/24 CPT-3075F Most recent systolic blood pressure 130-139 mm Hg CPT-3075F Most recent systolic blood pressure 130-139 mm Hg CPT-1159F Medication list docu mented in medical record [facility] 21856 T1 G.C. Chlamydia CPT-19405 Urine Dip Auto 72385 CPT-95820 Strep Screen 86733 9 CPT-3074F Most recent systolic blood pressure <130 mm Hg SCT-490846314391568 Medication Reconciliation CPT-52865 COVID-19 Moderna CPT-0011A IZ administration - COVID-19 - Moderna 1st dose SCT-077310621164117 Medication Reconciliation CPT-3074F Most recent systolic blood pressure <130 mm Hg CPT-3078F Most recent diastoli c blood pressure <80 mm Hg SCT-331989033789537 Medication Reconciliation CPT-3075F Most recent systolic blood pressure 130-139 mm Hg CPT-3079F Most recent diastoli c blood pressure 80-89 mm Hg OB US GEN Ultrasound CPT-97618 Cystic Fibrosis Screen 03/29 SCT-356909964320928 Medication Reconciliation CPT-3074F Most recent systolic blood pressure <130 mm Hg CPT-3078F Most recent diastoli c blood pressure <80 mm Hg 39293 Flulaval Quadrivalent 05/30 CPT-24675 IMADM >18YR IM ROUTE 1[address] VAC/TOXOID 03/29 CPT-54572 Urine Dip Auto 10133 CPT-46660 Test 40648 CPT-1159F Medication list docu mented in medical record CPT-1160F Review of all medica tions by a prescribing practitioner [facility] 85209 T1 Urine Drug Screen w/o Confirmation [facility] 8472 T1 Hep C Ab [facility] 47854 T1 HIV 1/2 Ag & Ab 4 th gen -consent required [facility] 64110 T1 Panel (Obstetric Panel) 03/29 [facility] 395 [...]
--- OUTSIDE RECORDS SUMMARY | 2025-03-18 15:28 | XMS_ITS | Encounter Summary ---
Author Organization [place] [address] Care Team Providers Care Residential Property Consultant Name Role Phone Sukumar Garcia MD Primary Care Provider [phone] Reason for Visit * Reason Onset Date Comments Appointment Needed 02/23/[address] Nieves Encounter Details Date Type Department Care Team (Late st Contact Info) Description 02/23/2025 Telephone [facility] [place] [address] [address] Sukumar Garcia MD [place] [address] Appointment Needed (OB Appt with Dr. Nieves) Social History Tobacco Use Types Packs/Day Years [...] No 04/23/2019 4:15 PM EST Merry Romero Daniella, RMA * Is the person blind or does he/she have serious difficulty seeing even when wearing glasses? Answer Date of Assessment Author No 04/23/2019 4:15 PM EST Merry Romero, RMA * Does this person have serious difficulty walking or climbing stairs? Answer Date of Assessment Author No 04/23/2019 4:15 PM EST Merry Romero, RMA * Does this person have difficulty dressing or bathing? Answer Date of Assessment Author No 04/23/2019 4:15 PM EST Merry Romero, RMA * Because of a physical, mental or emotional condition, does this person have difficulty doing errands alone such as visiting a doctor's office or shopping? Answer Date of Assessment Author No 04/23/2019 4:15 PM Merry Chino Daniella, RMA documented as of this encounter Mental Status * Because of a physical, mental or emotional condition, does this person have serious difficulty concentrating, remembering or making decisions? Answer Entry Date Author No 04/23/2019 4:15 PM Merry Chino Daniella, RMA documented in this encounter Miscellaneous Notes * Telephone Encounter - Angela Barnett MA - 02/23/2025 4:09 PM EST Appt scheduled. * Telephone Encounter - Shelby Guzman MA - 02/23/2025 4:04 PM EST Select the most appropriate reason for this telephone message: Appointment Needed Who is Calling: Patient Return Method of Communication: Phone Call Provider Preference: Lino Rodriguez Type of Appt Needed: Office Visit Detailed Reason for Appt: Shannan Reyes APRN 02/21/2025 11:43 PM EST + test, congrats. call to schedule first visit with Dr. Gleason. vitamin sent. Is the caller rescheduling an existing appointment: No Requested Timeframe: Other around 10:30 am Reason Scheduling Assistance is Needed: Call Center not permitted to schedule Additional Information: Please contact patient/caller to schedule, thank you, documented in this encounter Plan of Treatment [...] on filedocumented in this encounter Care Teams Residential Property Consultant Relationship Specialty Start Date End Date Sukumar Garcia MD [address] [place] [address] PCP - General Internal Medicine 05/21/21 documented as of this encounter
--- OUTSIDE RECORDS SUMMARY | 2025-03-18 15:28 | XMS_ITS | Encounter Summary ---
Author Organization [facility] [place] [address] Care Team Providers Care Director Media Name Role Phone Sukumar Garcia MD Primary Care Provider [phone] Encounter Details Date Type Department Care Team (Latest Contact Info) Description 02/21/2025 Travel Social History Tobacco Use Types Packs/Day Years [...] Author No 04/23/2019 4:15 PM Merry Chino DaniellaZEB * Does this person have difficulty dressing [...] Author No 04/23/2019 4:15 PM Merry Chino DaniellaZEB documented in this encounter Plan of Treatment [...] on filedocumented in this encounter Care Teams Director Media Relationship Specialty Start Date End Date Sukumar Garcia MD [address] [address] [place], [place] [address] PCP - General Internal Medicine 05/21/21 documented as of this encounter
--- OUTSIDE RECORDS SUMMARY | 2025-03-18 15:28 | XMS_ITS | Encounter Summary ---
Author Organization [facility] Address [address] [place] [address] Care Team Providers Care Brick Or Block Maker Name Role Phone Sukumar Garcia MD Primary Care Provider [phone] Encounter Details Date Type Department Care Team (Late st Contact Info) Description 02/25/2025 Results Follow-Up [facility] [place] [facility] [address] [place] [address] Karmen Rodriguez, DO [address] [place], [place] [id number] CHLAMYDIA/GC BY TMA, ACUTE HEPATITIS PANEL, HEMOGLOBIN A1C, Additional followed-up results: 9 Social History Tobacco Use Types Packs/Day Years [...] of Assessment Author No 04/23/2019 4:15 PM CASSIA mcdonnell Merry Daniella, MARSHAA * Is the person blind or does he/she have serious difficulty seeing even when wearing glasses? Answer Date of Assessment Author No 04/23/2019 4:15 PM EST Johnny mcdonnell Merry Daniella, RMA * Does this person have serious difficulty walking or climbing stairs? Answer Date of Assessment Author No 04/23/2019 4:15 PM EST Johnny mcdonnell Merry Daniella, RMA * Does this person have difficulty dressing or bathing? Answer Date of Assessment Author No 04/23/2019 4:15 PM EST Johnny mcdonnell Merry Daniella, RMA * Because of a physical, mental or emotional condition, does this person have difficulty doing errands alone such as visiting a doctor's office or shopping? Answer Date of Assessment Author No 04/23/2019 4:15 PM CASSIA mcdonnell Merry Daniella, RMA documented as of this encounter Mental Status * Because of a physical, mental or emotional condition, does this person have serious difficulty concentrating, remembering or making decisions? Answer Entry Date Author No 04/23/2019 4:15 PM CASSIA Turner sathya Merry Daniella, RMA documented in this encounter Plan of Treatment Scheduled Orders Name Type Priority Associated Diagnoses Orde r Schedule HUMAN CHORIONIC GONADOTROPIN QUANTITATIVE Lab Routine Vaginal bleeding in , first trimester 1 Occurrences starting 02/25/2025 until 02/25/2026 documented as of this encounter Goals Goal Patient Goal Type Associated Problems Recent Progress Patient-Stated? Author Blood Pressure < 140/90 Blood Pressure 128/82(2024 10:46 AM EST) No Misty Black CCMA Maintain a healthy diet, exercise regularly and maintain an ideal body weight General No Janis Ackerman CCMA Stay Tobacco Free Lifestyle No Misty Black CCMA documented as of this encounter Visit Diagnoses Diagnosis Vaginal bleeding in , first trimester- Primary documented in this encounter Care Teams Brick Or Block Maker Relationship Specialty Start Date End Date Sukumar Garcia MD [facility]TRY [facility] [address] [place], [place] [address] PCP - General Internal Medicine 05/21/21 documented as of this encounter
--- OUTSIDE RECORDS SUMMARY | 2025-03-18 15:28 | XMS_ITS | Clinical Summary ---
Author Organization [facility] Address [address] [place] [address] Phone Care Team Providers Care Registered Dietetic Technician Name Role Phone Sukumar Garcai MD Primary Care Provider [phone] Allergies No known active allergies Medications omeprazole (PRILOSEC) 40 mg Oral Capsule, Delayed Release(E.C.)Ind ications:Gastroe sophageal reflux disease, unspecified whether esophagitis present Take 1 Capsule by mouth daily for 180 days. 90 Capsule 1 10/18/2024 04/16/20 25 Active PNV no.68-ghtd-baznc acid-dha 35 mg iron-5 mg iron-1 mg Oral CapsuleIndicatio ns:Less than 8 weeks gestation of Take 1 Capsule by mouth daily. 30 Capsule 11 02/21/2025 Active Active Problems Problem Noted Date Diagnosed Date History of gestational hypertension 02/21/2025 Obesity, Class III, BMI 40-49.9 (morbid obesity) 09/17/2024 Obesity, Class II, BMI 35-39.9 07/09/2022 Overview [...] any structural abnormalities. History of asthma 10/20/2017 Estimated Date of Delivery Comme nts Yes 10/22/2025 Resolved Problems Problem Noted Date Diagnosed Date Resolved Date Surveillance of contraceptive injection 03/12/2024 02/21/2025 Rectal bleeding 03/04/2023 08/21/2023 Assessment & Plan [...] Encounters Date Type Department Care Team Description 02/25/2025 Telephone [facility] [employer] [facility] [address] [place] [id number] Alisha Armstrong CNA Schedule Appointment 02/25/2025 Results Follow-Up [address] [place] [address] Karmen Rodriguez, DO CHLAMYDIA/GC BY TMA, ACUTE HEPATITIS PANEL, HEMOGLOBIN A1C, Additional followed-up results: 9 02/24/2025 11:00 AM EST INITIAL VISIT [address] [place] [address] Karmen Rodriguez DO First trimester (Primary Dx) 02/24/2025 Travel 02/23/[address] [place] [address] Sukumar Garcia MD Appointment Needed (OB Appt with Dr. Nieves) 02/21/2025 10:45 AM EST Office Visit [address] [place] [address] Shannan Reyes APRN Amenorrhea (Primary Dx); History of gestational hypertension 02/21/2025 Results Follow-Up [address] [place] [address] Shannan Reyes, SUBSTATION OPERATOR HELPER HUMAN CHORIONIC GONADOTROPIN QUANTITATIVE 02/21/2025 Travel 02/08/2025 Travel from Last 3 Months Immunizations Immunization Administration [...] a child Hypertension gestational Mental disorder depression Surveillance of contraceptive injection 03/12/20 24 Family History Medical History Relation Name Comments [...] SAB Ectopic Multiple Livin g Live Births 2 1 1 0 1 1 Date Outcome GA Total Labor Labor/2nd/3rd Weight Sex Type Anes PTL Faraz A1 A5 Name Clin 2020 Term 37w 5d 0h 04m 0h 04m 6 lb 14.4 oz (3.13 kg) M OVD Epidur al N Livin g 9 9 JASSI OLEARY er, Yumiko Alves DO Complications:Gestational hy pertension,Labor with prolonged second stage,Vacuum extractor delivery, delivered,Anemia Delivery Location:[facility] Current Summary Episode Dates Number of Fetuses Estimated Date of Delivery 02/24/2025 - Present (03/18/2025) 10/22/2025 (set by Angela Barnett MA on 02/24/2025 based on Alternate CRISTINE Entry) Dating Summary Based On CRISTINE GA Diff Last Menstrual Period on 01/15/2025 (Approximate ) 10/22/2025 Same Alternate CRISTINE Entry 10/22/2025 Working Vitals Pregravid Weight Height TWG (As of 03/18/2025) Pregrav id BMI 5' 1 (1.549 m) Notes Progress Notes - INITIAL PRE HUNG VISIT - 02/24/2025 - GA:5w5d 02/24/2025 - 5w5d - Joselyn Rodriguez DO Initial Visit Care Subjective PATIENT: Angela Oleary [...] diagnosis for this . Reports concern about chronic back pain and managing it during this . Reports some spotting Are you taking vitamins? Yes Objective BP 128/82 Pulse 96 Temp 98.5 F (36.9 C) (Temporal) Resp 18 Ht 5' 1 (1.549 m) Wt 222 lb 9.6 oz (101 kg) LMP 01/15/2025 (Approximate) SpO2 98% BMI 42.06 kg/m Cardiovascular: Normal rate Respiratory: Normal effort MSK: No pitting edema noted Urine dipstick Results for orders placed or performed in visit on 02/24/25 CHLAMYDIA/GC Specimen: Urine, Random Narrative The following orders were created for panel order CHLAMYDIA/GC. Procedure Abnormality Status --------- ------ CHLAMYDIA/GC BY TMA[[id number]] In process Please view results for these tests on the individual orders. SCREEN WITH HEMOGRAM Narrative The following orders were created for panel order SCREEN WITH HEMOGRAM. Procedure Abnormality Status --------- ------ ABORH[[id number]] In process ANTIBODY SCREEN IGG[[id number]] In process CBC[[id number]] In process HEPATITIS B SURFACE ANTIGEN[[id number]] In process RUBELLA ANTIBODY IGG[[id number]] In process SYPHILIS SCREEN WITH REF...[[id number]] In process BB HISTORY CHECK[[id number]] In process Please view results for these [...] Gran% 0.5 % Lymph Percent 26.9 % Surry Percent 7.4 % Eos Percent 2.0 % Baso Percent 0.5 % Neut # 4.9 1.6 - 6.1 x10(3)/mcL IMMGRAN# 0.0 0.0 - 0.1 x10(3)/mcL Lymph # 2.1 1.2 - 3.9 x10(3)/mcL Surry # 0.6 0.3 - 0.9 x10(3)/mcL Eos# 0.2 0.0 - 0.5 x10(3)/mcL Baso # 0.0 0.0 - 0.1 x10(3)/mcL The following are the results for your labs from the Office Visit encounter on 07/09/22: 2. HIV AG/AB Result Value Ref Range HIV Ag/AB Non-Reactive Non-Reactive The following are the results for your labs from the Office Visit encounter on 04/19/22: 3. FLUX TUBE ATTENDANT CYTOLOGY REQUEST (PAP ONLY) Result Value Ref Range CASE REPORT Gynecologic Cytology Report Case: [id number] Authorizing Provider: Karmen Rodriguez DO Collected: 04/19/2022 1009 Ordering Location: [facility] Received: 04/19/2022 1009 First Screen: Earnest [...] confirmed before definitive therapy. Processed using the TV Talk NetworkPrep Career Specialist Automated cytology screening device (CLARED). The following are the results for your labs from the Hospital Encounter encounter on 07/20/21: 4. CBC Result Value Ref Range Hgb [...] ABORH O POS 11/07/2020 Rhogam not needed BULL GANG SUPERVISOR History OB history: # 1 Hx of [...] Future Karmen Rodriguez DO Family Medicine 02/24/2025 Last Filed Vital Signs Vital Sign Reading [...] Mass Index 42.06 02/24/2025 10:46 AM EST Plan of Treatment Health Maintenance Due Date Last Done Comments Annual Wellness Exam 08/20/2024 08/21/2023 COVID-19 Vaccine ( season) 2024 05/28/2021, 07/25/2020, 06/27/2020 Influenza Vaccine (#1) 2024 03/29/2020 Cervical Cancer Screening 04/19/2025 Pap Smear 04/19/2025 04/19/2022 Chlamydia Screening 02/24/2026 02/24/2025, 04/19/2022, 02/14/2021, Additional history exists DTaP/TDaP/Td (7 - Td or Tdap) 06/10/2030 06/10/2020, 12/26/2011, 11/22/2004, Additional history exists Hepatitis B Vaccine Completed 02/26/2002, 04/23/2001, 01/18/2001 Pneumococcal Vaccine 0-49 Completed 2001, 09/21/2001, 07/19/2001 HPV Completed 01/03/2020, 09/19, 09/10/2017 Meningococcal B Vaccine Aged Out No l onger eligible based on patient's age to complete this topic RSV or 60+ (No Doses Required) Completed Goals Goal Patient Goal Type Associated Problems Recent Progress Patient-Stated? Author Blood Pressure < 140/90 Blood Pressure 128/82(2024 10:46 AM EST) No Misty Black CCMA Maintain a healthy diet, exercise regularly and maintain an ideal body weight General No Janis Ackerman CCMA Stay Tobacco Free Lifestyle No Misty Black CCMA Procedures Procedure Name Priority Date/Time Associated Diagnosis Comments BB HISTORY CHECK Routine 02/24/2025 11:3 1 AM EST First trimester ANTIBODY SCREEN IGG Routine 02/24/2025 1 1:31 AM EST First trimester ABORH Routine 02/24/2025 11:31 AM EST First trimester SYPHILIS SCREEN WITH REFLEX RPR QUANT Routine 02/24/2025 11:31 AM EST First trimester RUBELLA ANTIBODY IGG Routine 02/24/2025 11:31 AM EST First trimester HEPATITIS B SURFACE ANTIGEN Routine 02/24/2025 11:31 AM EST First trimester CBC Routine 02/24/2025 11:31 AM EST First trimester HUMAN CHORIONIC GONADOTROPIN QUANTITATIVE Routine 02/24/2025 11:31 AM EST First trimester HIV AG/AB Routine 02/24/2025 11:31 AM EST First trimester SCREEN WITH HEMOGRAM Routine 02/24/2025 11:31 AM EST First trimester HEMOGLOBIN A1C Routine 02/24/2025 11:31 AM EST First trimester ACUTE HEPATITIS PANEL Routine 02/24/2025 11:31 AM EST First trimester CHLAMYDIA/GC BY TMA Routine 02/24/2025 1 1:30 AM EST First trimester CHLAMYDIA/GC Routine 02/24/2025 11:30 AM EST First trimester SEP URINALYSIS POC Routine 02/24/2025 10 :58 AM EST First trimester HUMAN CHORIONIC GONADOTROPIN QUANTITATIVE Routine 02/21/2025 11:12 AM EST Amenorrhea FLUX TUBE ATTENDANT CYTOLOGY REQUEST (PAP ONLY) Routine 04/19/2022 10:09 AM EST Pap smear for cervical cancer screening from Last 3 Months or Most Recently Relevant to Health Maintenance Results * HIV AG/AB (02/24/2025 11:31 AM EST) HIV Ag/AB Non-Reacti ve Non-Reacti ve 02/24/2025 3:09 PM EST [facility] Comment:Negative for HIV-1 a ntigen and anti-HIV-1/anti-HIV-2 antibodies. Blood VENOUS BLOOD / Unknown Venipuncture / Unknown 02/24/2025 11:31 AM EST 02/24/2025 11:31 AM EST Narrative [facility] - 02/24/2025 3:09 PM EST Test performed using Jd Elecsys electrochemiluminescence immunassay (ECLIA). us Karmen Rodriguez DO IMMUNOLOGY ORDERABLES Final Result [facility] , [address] [place] [id number] * BB HISTORY CHECK (02/24/2025 11:31 AM EST) Pathologist [facility] BB HISTORY CHECK (1) Previous History OK 02/24/2025 3:16 PM EST [facility] BLOOD BANK Blood VENOUS BLOOD / Unknown Venipuncture / Unknown 02/24/2025 11:31 AM EST 02/24/2025 11:31 AM EST Karmen Rodriguez DO BLOOD BANK ORDERABLES Final Result [facility] BLOOD BANK [address] [place] [address] * SYPHILIS SCREEN WITH REFLEX RPR QUANT (02/24/2025 11:31 AM EST) Pathologist [facility] Trep Ab Non-Reactiv e Non-Reacti ve 02/24/2025 3:09 PM EST [facility] [place] Blood VENOUS BLOOD / Unknown Venipuncture / Unknown 02/24/2025 11:31 AM EST 02/24/2025 11:31 AM EST us Karmen Rodriguez DO CHEMISTRY ORDERABLES Final R esult [facility] [address] [facility], [place] [address] * CBC (02/24/2025 11:31 AM EST) Pathologist [facility] WBC 5.2 3.7 - 10.3 x10(3)/mcL 02/24/2025 3:20 PM EST [facility] RBC 4.39 3.90 - 5.20 x10(6)/mcL 02/24/2025 3:20 PM EST [facility] Hgb 12.1 11.2 - 15.7 g/dL 02/24/2025 3:20 PM EST [facility] Hct 37.1 34.0 - 45.0 % 02/24/2025 3:20 PM EST [facility] MCV 84.5 80.0 - 100.0 fL 02/24/2025 3:20 PM EST [facility], [facility] MCH 27.6 26.0 - 34.0 pg 02/24/2025 3:20 PM EST [facility], [facility] MCHC 32.6 30.7 - 35.5 g/dL 02/24/2025 3:20 PM EST [facility], [facility] RDW 13.1 <=14.9 % 02/24/2025 3:20 PM EST [facility], [facility] Platelet 276 155 - 369 x10(3)/mcL 02/24/2025 3:20 PM EST [facility], [facility] MPV 10.2 8.8 - 12.5 fL 02/24/2025 3:20 PM EST [facility], [facility] Blood VENOUS BLOOD / Unknown Venipuncture / Unknown 02/24/2025 11:31 AM EST 02/24/2025 11:31 AM EST Karmen Rodriguez DO HEMATOLOGY ORDERABLES Final Result [facility], [facility] [address] [facility] , [place] [address] * ACUTE HEPATITIS PANEL (02/24/2025 11:31 AM EST) Hep Bs Ag Non-Reacti ve Non-React delio 02/24/2025 3:01 PM EST [facility], [facility] Comment:HBsAg not detected. Does not exclude possibility of exposure to HBV. Hep B Core IgM Non-Reacti ve Non-React delio 02/24/2025 3:01 PM EST [facility], [facility] Hep A IgM Non-Reacti ve Non-React delio 02/24/2025 3:01 PM EST [facility], [facility] Hep C Ab Non-Reacti ve Non-React delio 02/24/2025 3:01 PM EST [facility], [facility] Comment:No antibodies to HCV detected. Does not exclude possibility of exposure to HCV. Blood VENOUS BLOOD / Unknown Venipuncture / Unknown 02/24/2025 11:31 AM EST 02/24/2025 11:31 AM EST Narrative [facility], [facility] - 02/24/2025 3:01 PM EST Test performed using Jd Elecsys electrochemiluminescence immunassay (ECLIA). us Karmen Rodriguez DO CHEMISTRY ORDERABLES Final R esult Performing Organization Address City/[facility] Co de Phone Number [facility] 1 [facility] , [address] [place] [phone] * ABORH (02/24/2025 11:31 AM EST) Pathologist [facility] ABORH Int O POS 02/24/2025 4:0 0 PM EST [facility] BLOOD BANK Blood VENOUS BLOOD / Unknown Venipuncture / Unknown 02/24/2025 11:31 AM EST 02/24/2025 11:31 AM EST Karmen Rodriguez DO BLOOD BANK ORDERABLES Final Result Performing Organization Address [facility] Phone Number [facility] BLOOD BANK [address] [place], [place] [phone] * RUBELLA ANTIBODY IGG (02/24/2025 11:31 AM EST) [facility] Rubella IgG 9.320 Index Value 02/24/2025 3:55 PM EST [facility] Comment: < 0.90 - Negative No significant [...] IMMUNOLOGY ORDERABLES Final Result Performing Organization Address [facility] Co de Phone Number [facility] 1 [facility] , [address] [place] [phone] * HEPATITIS B SURFACE ANTIGEN (02/24/2025 11:31 AM EST) [facility] Hep Bs Ag Non-Reacti ve Non-React delio 02/24/2025 3:09 PM EST [facility] Comment:HBsAg not detected. Does not exclude possibility of exposure to HBV. Blood VENOUS BLOOD / Unknown Venipuncture / Unknown 02/24/2025 11:31 AM EST 02/24/2025 11:31 AM EST Narrative [facility] - 02/24/2025 3:09 PM EST Test performed using Jd Elecsys electrochemiluminescence immunassay (ECLIA). Karmen Rodriguez DO CHEMISTRY ORDERABLES Final R esult Performing Organization Address [facility]/ZIP Co de Phone Number [facility] 1 [facility], [place] [address] * ANTIBODY SCREEN IGG (02/24/2025 11:31 AM EST) Pathologist [facility] ABSC IgG Int Negative 02/24/2025 4:06 PM EST [facility] BLOOD [facility] Blood VENOUS BLOOD / Unknown Venipuncture / Unknown 02/24/2025 11:31 AM EST 02/24/2025 11:31 AM EST Karmen Rodriguez DO BLOOD BANK ORDERABLES Final Result Performing Organization Address [facility] de Phone Number [facility] [place] [address] * (ABNORMAL) HUMAN CHORIONIC GONADOTROPIN QUANTITATIVE (02/24/2025 11:31 AM EST) Only the most recent of2 resultswithin the time period is included. Pathologist [facility] Hcg Quant 15(H) <5 mIU/mL 02/24/2025 3:0 1 PM EST [facility] Blood VENOUS BLOOD / Unknown Venipuncture / Unknown 02/24/2025 11:31 AM EST 02/24/2025 11:31 AM EST Narrative [facility] - 02/24/2025 3:01 PM EST Female (non-): [...] ORDERABLES Final R esult Performing Organization Address [facility] de Phone Number [facility] [address] [place] [address] , [place] [address] * HEMOGLOBIN A1C (02/24/2025 11:31 AM EST) Pathologist [facility] Hgb A1C 5.5 4.2 - 5.6 % 02/24/2025 3:43 PM EST [facility] Est. Avg Glucose 111 mg/dL 02/24/2025 3:43 PM EST [facility] Blood VENOUS BLOOD / Unknown Venipuncture / Unknown 02/24/2025 11:31 AM EST 02/24/2025 11:31 AM EST Narrative [facility] - 02/24/2025 3:43 PM EST REFERENCE RANGE: Normal: 4.0-5.6% Pre-diabetes: 5.7-6.4% Provisional diagnosis of diabetes: >6.4% Hgb F>10% and anything which shortens red cell survival, such as hemolytic anemia, or unstable hemoglobin variants such as HbSS, HbSC, or HbCC, will lower the HbA1c value associated with a given level of glycemic control. Karmen Rodriguez DO CHEMISTRY ORDERABLES Final R esult Performing Organization Address [facility] de Phone Number [facility] [address] [place] [address] , [place] [address] * CHLAMYDIA/GC BY TMA (02/24/2025 11:30 AM EST) Pathologist [facility] Chlamydia trachomatis Not Detected Not Detected 02/24/2025 6:38 PM EST [facility] Neisseria gonorrhoeae Not Detected Not Detected 02/24/2025 6:38 PM EST [facility] Urine STRUCTURE OF URINARY TRACT PROPER / Unknown 02/24/2025 11:30 AM EST 02/24/2025 11:30 AM EST Narrative [facility] - 02/24/2025 6:38 PM EST Testing methodology is linux unix system administrator mediated amplification (TMA) using the Aptima Combo 2 assay from [employer]. A negative result does not completely rule [...] MICROBIOLOGY - GENERAL ORDER TERRENCE Final Result [facility] [employer] [facility] [address] [facility] , [address] [place] [phone] * (ABNORMAL) SEP URINALYSIS POC (02/24/2025 10:58 AM EST) UA Color POC Yellow Color 02/24/2025 11:00 AM EST [facility] [place] UA Appear POC Clear Clear 02/24/2025 11:00 AM EST [facility] [place] UA Gluc POC Negative Negative mg/dL 02/24/2025 11:00 AM EST [facility] [place] UA Bili POC Negative Negative 02/24/2025 11:00 AM EST [facility] [place] UA Ketones POC Negative Negative mg/dL 02/24/2025 11:00 AM EST [facility] [place] UA SG POC 1.015 1.001 - 1.035 no units 02/24/2025 11:00 AM EST [facility] [place] UA Blood POC Moderate(A) Negative 02/24/2025 11:00 AM EST [facility] [place] UA pH POC 6.5 5.0 - 8.0 pH 02/24/2025 11:00 AM EST [facility] [place] UA Protein POC Negative Negative mg/dL 02/24/2025 11:00 AM EST [facility] [place] UA Urobilinogen POC 0.2 0.2, 1.0 02/24/2025 11:00 AM EST [facility] [place] [facility]A Nitrite POC Negative Negative 02/24/2025 11:00 AM EST [facility] [place] [facility]A Leuk Est POC Negative Negative 11:00 AM EST [facility] [place] Urine STRUCTURE OF URINARY TRACT PROPER / Unknown 02/24/2025 10:58 AM EST 02/24/2025 11:00 AM EST us Karmen Rodriguez DO POINT OF CARE TEST ORDERABLE S Final Result [facility] [place] [address] [place] [address] * FLUX TUBE ATTENDANT CYTOLOGY REQUEST (PAP ONLY) (04/19/2022 10:09 AM EST) CASE REPORT Gynecologic Cytology Report Case: [id number] Authorizing Provider: Karmen Rodriguez DO Collected: 04/19/2022 1009 Ordering Location: [facility] [place] Received: 04/19/2022 1009 First Screen: Earnest Youssef CT Specimen: LIQUID-BASED PAP - CERVICAL/ENDOCERV ICAL, Cervix, Endocervical 04/23/2022 11:32 AM EST [facility] PAP FINAL DIAGNOSIS Negative for intraepithelial lesion or malignancy 04/23/2022 11:32 AM EST [facility] [employer] [facility] at 1131 EST MICROSCOPIC DESCRIPTION Microscopic examination is performed and the findings corroborate the diagnosis. 04/23/2022 11:32 AM EST [facility] PAP SMEAR ADEQUACY Satisfactory for evaluation 04/23/2022 11:32 AM EST [facility] ENDOCERVICAL T-ZONE Transformation zone present 04/23/2022 11:32 AM EST [employer] [facility] EMBEDDED IMAGES 11:32 AM EST [facility] PAP DISCLAIMER The Pap Smear is a screening test that aids in the detection of cervical cancer and cancer precursors. Both false positive and false negative results can occur. The test should be used at regular intervals, and positive results should be confirmed before definitive therapy. Processed using the ThinPrep Career Specialist Automated cytology screening device (CLARED). 04/23/2022 11:32 AM EST [facility] [employer] ENDOCERVICAL STRUCTURE / Unknown 04/19/2022 10:09 AM EST 04/19/2022 10:09 AM EST us Karmen Rodriguez DO CYTOLOGY ORDERABLES Final Re sult [facility] [address] [place] [address] from Last 3 Months or Most Recently Relevant to Health Maintenance Insurance [place] [id number] [place] [id number] MDR Advance Directives For more information, please contact: [phone] * Full Code (Latest Code Status on File) Date Activated Date Inactivated Comments 11/07/2020 5:56 AM 11/10/2020 6:26 PM Care Teams Registered Dietetic Technician Relationship Specialty Start Date End Date Sukumar [place] [address] [place] [address] PCP - General Internal Medicine 05/21/21
--- OUTSIDE RECORDS SUMMARY | 2025-03-18 15:28 | XMS_ITS | Encounter Summary ---
Author Organization [place] [address] Care Team Providers Care Naturopathic Doctor Name Role Phone Sukumar Garcia MD Primary Care Provider [phone] Encounter Details Date Type Department Care Team (Latest Contact Info) Description 02/21/2025 Results Follow-Up [facility] [address] [place] [address] Shannan Reyes, DICTAPHONE OPERATOR [address] [place] [address] HUMAN CHORIONIC GONADOTROPIN QUANTITATIVE Social History Tobacco Use Types Packs/Day Years [...] Merry Chino RMA documented in this encounter Ordered Prescriptions Prescription Sig Dispense Quantity Refills Last Filled Start Date End Date PNV no.20-nmxt-yimys acid-dha 35 mg iron-5 mg iron-1 mg Oral CapsuleIndications :Less than 8 weeks gestation of Take 1 Capsule by mouth daily. 30 Capsule 11 02/21/2025 documented in this encounter Plan of Treatment Not on file documented as of this encounter Goals Goal Patient Goal Type Associated Problems Recent Progress Patient-Stated? Author Blood Pressure < 140/90 Blood Pressure 128/82(2024 10:46 AM EST) No Misty Blakc CCMA Maintain a healthy diet, exercise regularly and maintain an ideal body weight General No Janis Ackerman CCMA Stay Tobacco Free Lifestyle No Misty Black CCMA documented as of this encounter Visit Diagnoses Diagnosis Less than 8 weeks gestation of - Primary state, incidental documented in this encounter Care Teams Naturopathic Doctor Relationship Specialty Start Date End Date Sukumar [place] [address] [place] [id number] PCP - General Internal Medicine 05/21/21 documented as of this encounter
--- OUTSIDE RECORDS SUMMARY | 2025-03-18 15:28 | XMS_ITS | Encounter Summary ---
Author Organization [facility] [place] [address] Care Team Providers Care Compugraph Operator Name Role Phone Sukumar Garcia MD Primary Care Provider [phone] Encounter Details Date Type Department Care Team (Latest Contact Info) Description 02/08/2025 Travel Social History Tobacco Use Types Packs/Day [...] on filedocumented in this encounter Care Teams Compugraph Operator Relationship Specialty Start Date End Date Sukumar Garcia MD [address] [place], [place] [address] PCP - General Internal Medicine 05/21/21 documented as of this encounter
--- OUTSIDE RECORDS SUMMARY | 2025-03-18 15:28 | XMS_ITS | Encounter Summary ---
Author Organization [facility] [place] [id number] Care Team Providers Care Rn Research Name Role Phone Sukumar Garcia MD Primary Care Provider [phone] Encounter Details Date Type Department Care Team (Latest Contact Info) Description 02/24/2025 Travel Social History Tobacco Use Types Packs/Day [...] No 04/23/2019 4:15 PM EST Merry Romero DaniellaZEB * Does this person have difficulty [...] Date Author No 04/23/2019 4:15 PM CASSIA mcdonnell Merry DaniellaZEB documented in this encounter Plan of [...] on filedocumented in this encounter Care Teams Rn Research Relationship Specialty Start Date End Date Sukumar Garcia MD [address] [facility] [address] [place], [place] [phone] PCP - General Internal Medicine 05/21/21 documented as of this encounter
--- OUTSIDE RECORDS SUMMARY | 2025-03-18 15:28 | XMS_ITS | Encounter Summary ---
Author Organization [facility] [place] [address] Care Team Providers Care Bleach Chlorinator Name Role Phone Sukumar Garcia MD Primary Care Provider [phone] Reason for Visit * Reason Onset Date Comments Schedule Appointment 02/25/2025 Encounter Details Date Type Department Care Team (Late st Contact Info) Description 02/25/2025 Telephone [facility] [address] [place] [id number] Alisha Armstrong CNA Schedule Appointment Social History Tobacco Use Types Packs/Day Years [...] Merry Chino RMA documented in this encounter Miscellaneous Notes * Telephone Encounter - Alisha Armstrong CNA - 02/25/2025 10:18 AM ESTSummary: Schedule Genetic Consult Patient will call back. documented in this encounter Plan of Treatment [...] on filedocumented in this encounter Care Teams Bleach Chlorinator Relationship Specialty Start Date End Date Sukumar Garcia MD [address] [facility] [address] [place], [place] [id number] PCP - General Internal Medicine 05/21/21 documented as of this encounter
[2025-03-18 15:32] LABS: Hematocrit 38.8 % (37.0-47.0); Hemoglobin 12.7 g/dL (12.2-16.2); Immature Granulocytes % 0.1 %; Mean Corpuscular HGB Conc 32.7 g/dL (31.8-35.4); Mean Corpuscular Hemoglobin 27.4 pg (27.0-31.2); Mean Corpuscular Volume 83.8 fl (81-99); Nucleated Red Blood Cells % 0 %; Platelet Count 298 K/mm3 (142-424); Red Blood Count 4.63 M/mm3 (4.20-5.40); Red Cell Distribution Width-SD 39.1 fL; White Blood Count 8.2 K/mm3 (4.8-10.8)
[2025-03-18 15:40] LABS: Bacteria,Urine Trace /lpf
[2025-03-18 15:42] LABS: Albumin Level 4.5 g/dl (3.5-5.0); Chloride 102 mmol/L (98-107); Potassium 4.1 mmoL/L (3.5-5.1); Sodium 140 mmol/L (136-145)
[2025-03-18] MEDS: 0.9 % SODIUM CHLORIDE 1000ML 1,000 ML 999 ML IV (15:42)
[2025-03-18] MEDS: KETOROLAC 15MG/ML VIAL 15 MG IV (15:43)
[2025-03-18 15:45] LABS: Alanine Aminotransferase 30 U/L (12-78); Albumin/Globulin Ratio 1.2 (1.1-1.8); Alkaline Phosphatase 67 U/L (38-126); Anion Gap 15.1 mEq/L (5-15); Aspartate Amino Transferase 32 U/L (14-36); Bilirubin,Total 0.3 mg/dl (0.2-1.3); Blood Urea Nitrogen 11 mg/dl (7-17); Calcium 9.4 mg/dl (8.4-10.2); Carbon Dioxide 27 mmol/L (22.0-30.0); Creatinine Clearance Estimated 82 mL/min (50-200); Creatinine,Serum 0.80 mg/dl (0.52-1.04); Estimated Glomerular Filt Rate 88 ml/min (>60); GFR (African American) 107 ML/MIN (>60); Globulin 3.7 g/dL (1.3-3.2); Glucose 78 mg/dl (74-100); Lipase 103 U/L (23-300); Total Protein,Serum 8.2 g/dl (6.3-8.2)
[2025-03-18 15:46] LABS: Magnesium 1.9 mg/dl (1.6-2.3)
[2025-03-18 16:46] LABS: Hepatitis C Ab Qual. W/ RFX NEGATIVE (Negative)
[2025-03-18 16:51] VITALS: BP 133/84; PULSE 58; RESP 16; TEMP 36.7; O2SAT 97
== END 2025-03-18 16:54 | disposition home or self-care (01) ==
PROVIDERS: Nurse Practitioner Family; Emergency Provider Student in an Organized Health Care Education/Training Program; PCP Student in an Organized Health Care Education/Training Program
DX: R10.10 Upper abdominal pain, unspecified (principal); K21.9 Gastro-esophageal reflux disease without esophagitis; F17.210 Nicotine dependence, cigarettes, uncomplicated
CPT/HCPCS: 80053; 81001; 83690; 83735; 84702; 85025; 86803; 87389; 96361; 96374; 99284; 99285; J1885; J7030